=== PATIENT | female | born 1945 | race Caucasian/White ===

== ENCOUNTER 2020-06-23 07:18 | Outpatient (REF) | payer MEDICARE, SELFPAY ==
[2020-06-23 11:51] LABS: Alanine Aminotransferase 12 U/L (0-31); Anion Gap 13 (12-20); Aspartate Amino Transferase 15 U/L (5-31); Blood Urea Nitrogen 14 mg/dL (9-16); Calcium 9.3 mg/dL (8.4-10.2); Carbon Dioxide 29 mmol/L (22-29); Chloride 104 mmol/L (96-108); Cholesterol 196 mg/dL; Estimated Glomerular Filt Rate > 60; Glucose Fasting 85 mg/dL (60-99); HDL Cholesterol 51 mg/dL; LDL Cholesterol Calculated 127 mg/dl; Potassium 4.3 mmol/L (3.3-5.1); Sodium 142 mmol/L (135-145); Triglycerides 92 mg/dL
[2020-06-23 12:12] LABS: Vitamin D 25-OH Total 91.9 ng/mL (>30)
== END 2020-06-23 07:19 | disposition home or self-care (01) ==
LOC: HO.HMGCLDS 07:18
PROVIDERS: PCP Internal Medicine; Visit Provider Internal Medicine
DX: E55.9 Vitamin D deficiency, unspecified (principal); E78.5 Hyperlipidemia, unspecified; I10 Essential (primary) hypertension; Z78.0 Asymptomatic menopausal state
CPT/HCPCS: 36415; 80048; 80061; 82306; 84450; 84460

== ENCOUNTER 2020-09-03 11:11 | Emergency (ER) | payer MEDICARE, SELFPAY ==
--- NOTE | ~2020-09-03 | CT_ITS ---
EXAMINATION: CT ABDOMEN AND PELVIS WITH CONTRAST CLINICAL INFORMATION: Left upper quadrant pain, diarrhea COMPARISON: 11/09/2013 TECHNIQUE: Multidetector volumetric images were obtained from the superior aspect of the liver through the pubic symphysis following administration 85 mL of Omnipaque 350 intravenous contrast. Sagittal and coronal reformatted images were obtained on the technologist's workstation. Oral contrast: None This CT examination was performed using dose optimization techniques as appropriate, variously including the following: *Automated exposure control *Adjustment of mA and/or kV according to patient size (this includes techniques or standardized protocols for targeted exams where dose is matched to indication/reason for exam; i.e. extremities or head) *Use of iterative reconstruction technique DLP: 372 mGy-cm FINDINGS: LUNG BASES: The visualized lung bases are unremarkable. LIVER, GALLBLADDER, AND BILIARY TREE: The liver is normal in size, shape, and attenuation. No focal hepatic lesion or biliary ductal dilatation is present. The gallbladder is unremarkable with no evidence of radiopaque gallstones, gallbladder wall thickening, or obvious pericholecystic inflammatory changes. PANCREAS: Unremarkable. SPLEEN: Unremarkable. ADRENAL GLANDS: Unremarkable. KIDNEYS AND URETERS: The kidneys are normal in size, shape, and attenuation. No hydronephrosis, hydroureter, or calculi seen. No perinephric stranding. There is a simple fluid density left renal cyst measuring 3.6 cm which is increased in size. This does not require additional follow-up. BLADDER: Unremarkable. GASTROINTESTINAL TRACT: Sigmoid diverticulosis. No focal inflammatory process or obstruction. Normal appendix. ABDOMINAL WALL: No significant hernia is appreciated. LYMPH NODES: Normal. VASCULAR: Unremarkable. PELVIC VISCERA: Unremarkable. OSSEOUS STRUCTURES: Severe degenerative disc disease at L4-L5. CT/CT abdomen pelvis w con IMPRESSION: No focal inflammatory process or obstruction. Normal appendix. Sigmoid diverticulosis.
[2020-09-03 11:15] VITALS: BP 133/81; PULSE 89; RESP 16; TEMP 36.6; O2SAT 98; BMI 23.8
--- NOTE | 2020-09-03 14:00 | ECG_ITS ---
Test Reason : ADOMINAL PAIN Blood Pressure : / mmHG Vent. Rate : 071 BPM Atrial Rate : 071 BPM P-R Int : 156 ms QRS Dur : 086 ms QT Int : 410 ms P-R-T Axes : 059 060 070 degrees QTc Int : 445 ms Normal sinus rhythm Normal ECG When compared with ECG of 15-JAN-2010 15:46, No significant change was found Referred By: Spencer Bhatt Electronically Signed By:Fermin Beverly
--- NOTE | 2020-09-03 14:01 | ED_ITS ---
HPI - General Adult General Chief complaint: Abdominal Pain Stated complaint: FLANK PAIN Time Seen by Provider: 09/03/20 13:54 Source: patient and family Limitations: no limitations History of Present Illness HPI narrative: This is a 74-year-old female who was awakened in the middle the night by pain in her left upper quadrant, underneath her rib. The patient took 2 Advil a a back to sleep. She later woke up again with similar pain. She did have 3 episodes of diarrhea this morning, denies any blood in the stool. She denies any fever. She did have a recent episode of nausea in the waiting room, denies vomiting. She denies any chest pain or shortness of breath. She denies any back pain or urinary symptoms. She said she was told years ago that she had stone in the kidney but it has never bothered her. She describes the pain as more of a discomfort, and notes that it is worse lying down, improved standing up Related Data Previous Rx's Medication Instructions Recorded cholecalciferol (vitamin D3) 1,250 50,000 unit PO QWEEK #12 cap 02/12/20 mcg (50,000 unit) capsule atorvastatin 10 mg tablet 10 mg PO DAILY #90 tab 06/15/20 docusate sodium 100 mg capsule 100 mg PO BEDTIME #30 cap 09/07/20 linaclotide 72 mcg capsule 72 mcg PO DAILY #30 cap 09/22/20 (Linzess) Allergies Allergy/AdvReac Type Severity Reaction Status Date / Time Penicillins [PENICILLINS] Allergy Intermediate HIVES Verified 09/22/20 12:00 influenza virus vaccine, Allergy Unknown PT Verified 09/22/20 12:00 specific DEVELOPED [FLU VACCINE] SOB AND LOCAL SWELLING THIS YR Review of Systems Review of Systems: Yes all other systems are reviewed and are negative Constitutional: Constitutional: Reports as per HPI and Denies fever(s) Eyes: Eyes: Reports as per HPI and Reports no additional eye complaints ENT: Reports system reviewed and no additional complaints, except as documented, Reports as per HPI, Denies nasal congestion, Denies nasal discharge and Denies sore throat Cardiovascular: Cardiovascular: Reports as per HPI, Denies chest pain and Denies dyspnea Respiratory: Respiratory: Reports as per HPI, Denies cough and Denies dyspnea Gastrointestinal: Gastrointestinal: Reports as per HPI, Reports abdominal pain, Reports diarrhea, Reports nausea and Denies vomiting Genitourinary: Genitourinary: Reports as per HPI, Denies hematuria, Denies urinary frequency and Denies dysuria Musculoskeletal: Musculoskeletal: Reports no additional musculoskeletal complaints and Denies numbness Integumentary/Breasts: Skin/Breast: Reports as per HPI and Denies rash Neurologic: Reports as per HPI, Denies focal weakness, Denies numbness and Denies Sensory deficit (Neuro) Psychiatric: Psychiatric: Reports no additional psychiatric complaints and Reports as per HPI Endocrine: Endocrine: Reports no additional endocrine complaints and Reports as per HPI Hematologic/Lymphatic: Hematologic/Lymphatic: Reports no additional hematologic/lymphatic complaints, Reports as per HPI and Reports other (No peripheral edema) [facility] Past Medical History Medical History Hearing loss History of nephrolithiasis Lumbar disc herniation Osteopenia of multiple sites Smoker unmotivated to quit Vitamin D deficiency Surgical History Hx of colonoscopy Family History Family History Father Cancer Mother Diabetes mellitus Sister Brain cancer Social History Social History Alcohol intake: former Physical Exam Vital Signs: Vital Signs: Last Vital Signs Temp 98.0 F 09/03/20 14:40 Pulse 74 09/03/20 14:40 Resp 16 09/03/20 14:40 BP 169/93 H 09/03/20 14:40 Pulse Ox 98 09/03/20 11:15 Body Mass Index 23.8 Const: Other: Patient sitting up on the edge of [facility], appears moderately uncomfortable General: cooperative, no acute distress and alert Orientation/consciousness: patient oriented x3 HENMT: Head: Yes normal to inspection Eyes: General: appearance normal, both eyes and all related structures Eyelids: Yes eyelids normal Conjunctivae: conjunctivae normal Pupils: Equal, round and reactive pupils present Neck: Neck: Yes normal visual inspection and Yes supple Chest: Chest palpation & inspection: normal inspection of the chest Resp: Effort & Inspection: normal respiratory effort Auscultation: clear to auscultation bilaterally Cardio: Rate: regular rate Rhythm: regular rhythm Heart sounds: S1 normal heart sound present, S2 normal heart sound present, no gallops, no murmu rs and no rubs GI: Other: Tender left epigastric, mild, no lower quadrant tenderness Palpation (GI): Soft to palpation, nontender and Other GI palpation findings present (Non-distended) Auscultation: normal bowel sounds : General: Yes no CVA tenderness Back/Spine/Pelvis: Back: no CVA tenderness Skin: General skin exam: no rashes or lesions noted Neuro: General: patient oriented x3, no focal motor deficits and CN's II-XI intact bilaterally Cranial nerves: Yes Equal, round and reactive pupils present Cognition (Neuro): normal cognition Motor exam (neuro): 5/5 motor strength present throughout Sensory Exam: No Sensory deficit (Neuro) Extrem: General: Yes normal to inspection and Yes no pedal edema Psych: Appearance: grossly normal Affect: normal affect Medical Decision Making MDM Narrative Medical decision making narrative: Patient with right-sided abdominal pain/flank pain. Patient has also had associated diarrhea. CT that and pelvis showed no acute pathology. Urinalysis did show rbc's as well as 5-10 wbc's per high-power field. Urine culture was sent and is pending. There also were numerous epithel ial cells suggesting contamination. Lab Data Lab results reviewed: Yes I reviewed the patient's lab results. Result diagrams: 09/03/20 14:07 09/03/20 14:07 Labs: Lab Results 09/03/20 09/03/20 09/03/20 Range/Units 14:07 14:07 14:07 WBC 9.4 (4.8-10.8) X10*3/uL RBC 4.78 (4.20-5.50) X10*6/uL Hgb 14.8 (12.0-16.0) g/dl Hct 43.9 (37-47) % MCV 91.8 (80-98) fL MCH 31.0 (27.0-33.0) pg MCHC 33.7 (31.0-35.0) g/dl RDW 13.2 (11.0-16.0) % Plt Count 254 (160-400) X10*3/uL MPV 10.4 (9.4-12.3) fL Immature Gran % (Auto) 0.3 (0.0-0.4) % Neut % (Auto) 66.9 (45-73) % Lymph % (Auto) 24.2 (20-40) % Mills % (Auto) 6.9 (2-11) % Eos % (Auto) 1.1 (0-4) % Baso % (Auto) 0.6 (0-2) % Lymph # (Auto) 2.3 (1.2-4.9) X10*3/uL Mills # (Auto) 0.7 (0.1-1.2) X10*3/uL Eos # (Auto) 0.1 (0.0-0.4) X10*3/uL Baso # (Auto) 0.1 (0.0-0.2) X10*3/uL Abs Immat Gran (auto) 0.03 (0.00-0.03) X10*3/uL Absolute Neuts (auto) 6.3 (2.0-8.3) X10*3/uL Absolute Nucleated RBC 0.000 (0.0-0.012) X10*3/uL Nucleated RBC % (auto) 0.0 (0.0-0.2) /100WBC Sodium 141 (135-145) mmol/L Potassium 4.5 (3.3-5.1) mmol/L Chloride 104 (96-108) mmol/L Carbon Dioxide 27 (22-29) mmol/L Anion Gap 15 (12-20) BUN 10 (9-16) mg/dL Creatinine 0.68 (0.5-1.4) mg/dL Estim Creat Clear Calc 54.7 Estimated GFR > 60 Random Glucose 91 (60-115) mg/dL Calcium 10.0 D (8.4-10.2) mg/dL Total Bilirubin 0.7 (0.0-1.0) mg/dL AST 17 (5-31) U/L ALT 14 (0-31) U/L Alkaline Phosphatase 81 (39-117) U/L Troponin I High Sens < 3.5 (<3.5-17.0) ng/L Total Protein 7.1 (6.5-8.0) g/dL Albumin 4.3 (3.5-5.0) g/dL Lipase (8-78) U/L Urine Color Urine Appearance Urine pH (5.0-8.0) Ur Specific [place] (1.005-1.025) Urine Protein (NEG-TRACE) MG/DL Urine Glucose (UA) (NEG) MG/DL Urine Ketones (NEG) MG/DL Urine Blood (NEG) Urine Nitrite (NEG) Ur Leukocyte Esterase (NEG) Urine RBC (0) /HPF Urine WBC (0-4) /HPF Ur Squamous Epith Cells /LPF Urine Bacteria /LPF 09/03/20 09/03/20 Range/Units 14:07 15:18 WBC (4.8-10.8) X10*3/uL RBC (4.20-5.50) X10*6/uL Hgb (12.0-16.0) g/dl Hct (37-47) % MCV (80-98) fL MCH (27.0-33.0) pg MCHC (31.0-35.0) g/dl RDW (11.0-16.0) % Plt Count (160-400) X10*3/uL MPV (9.4-12.3) fL Immature Gran % (Auto) (0.0-0.4) % Neut % (Auto) (45-73) % Lymph % (Auto) (20-40) % Mills % (Auto) (2-11) % Eos % (Auto) (0-4) % Baso % (Auto) (0-2) % Lymph # (Auto) (1.2-4.9) X10*3/uL Mills # (Auto) (0.1-1.2) X10*3/uL Eos # (Auto) (0.0-0.4) X10*3/uL Baso # (Auto) (0.0-0.2) X10*3/uL Abs Immat Gran (auto) (0.00-0.03) X10*3/uL Absolute Neuts (auto) (2.0-8.3) X10*3/uL Absolute Nucleated RBC (0.0-0.012) X10*3/uL Nucleated RBC % (auto) (0.0-0.2) /100WBC Sodium (135-145) mmol/L Potassium (3.3-5.1) mmol/L Chloride (96-108) mmol/L Carbon Dioxide (22-29) mmol/L Anion Gap (12-20) BUN (9-16) mg/dL Creatinine (0.5-1.4) mg/dL Estim Creat Clear Calc Estimated GFR Random Glucose (60-115) mg/dL Calcium (8.4-10.2) mg/dL Total Bilirubin (0.0-1.0) mg/dL AST (5-31) U/L ALT (0-31) U/L Alkaline Phosphatase (39-117) U/L Troponin I High Sens (<3.5-17.0) ng/L Total Protein (6.5-8.0) g/dL Albumin (3.5-5.0) g/dL Lipase 13 (8-78) U/L Urine Color YELLOW Urine Appearance CLEAR Urine pH 6.0 (5.0-8.0) Ur Specific [place] 1.010 (1.005-1.025) Urine Protein NEG (NEG-TRACE) MG/DL Urine Glucose (UA) NEG (NEG) MG/DL Urine Ketones 5 (NEG) MG/DL Urine Blood 2+ H (NEG) Urine Nitrite NEG (NEG) Ur Leukocyte Esterase 1+ H (NEG) Urine RBC 10-14 H (0) /HPF Urine WBC 5-9 H (0-4) /HPF Ur Squamous Epith Cells 2+ /LPF Urine Bacteria 2+ /LPF ECG Data Attestation: I personally reviewed and interpreted this ECG as follows: Prior ECG tracings: not available for review Interpretation: Sinus rhythm with a rate of 71. No ST elevation or depression. Normal QRS axis, no ectopy. Normal EKG. Discharge Plan Discharge Clinical Impression: Abdominal pain, Diarrhea Patient Disposition: Home, Self-Care Instructions: Abdominal Pain (ED) Additional Instructions: Drink plenty of fluids. Eat a low-fat, bland diet for the time being. Follow up with primary care physician. Return for any new or worsened symptoms such as increased pain, fever, vomiting and inability to hold down fluids. Prescriptions: No Action cholecalciferol (vitamin D3) 1,250 mcg (50,000 unit) capsule 50,000 unit PO QWEEK Qty: 12 RF: 0 atorvastatin 10 mg tablet 10 mg PO DAILY Qty: 90 RF: 3 docusate sodium 100 mg capsule 100 mg PO BEDTIME Qty: 30 RF: 3 Linzess 72 mcg capsule 72 mcg PO DAILY Qty: 30 RF: 2 Interventions: ED Discharge Assessment Last Done: 09/03/20 16:58 Discharge Date/Time: 09/03/20 16:58
[2020-09-03 14:11] LABS: MANUAL DIFF FLAG NO
[2020-09-03] MEDS: Morphine Sulfate 2 MG/ML CARTRIDGE IVPUSH ×2 (14:11→15:22)
[2020-09-03] MEDS: ondansetron HCL 4 MG/2 ML VIAL IVPUSH (14:11)
[2020-09-03 14:15] LABS: Basophils Absolute Auto 0.1 X10*3/uL (0.0-0.2); Basophils Percent Auto 0.6 % (0-2); Eosinophils Absolute Auto 0.1 X10*3/uL (0.0-0.4); Eosinophils Percent Auto 1.1 % (0-4); Hematocrit 43.9 % (37-47); Hemoglobin 14.8 g/dl (12.0-16.0); Imm Gran Abs Auto 0.03 X10*3/uL (0.00-0.03); Imm Gran Pct Auto 0.3 % (0.0-0.4); Lymphocytes Absolute Auto 2.3 X10*3/uL (1.2-4.9); Lymphocytes Percent Auto 24.2 % (20-40); Mean Corpuscular HGB Conc 33.7 g/dl (31.0-35.0); Mean Corpuscular Volume 91.8 fL (80-98); Mean Platelet Volume 10.4 fL (9.4-12.3); Monocytes Absolute Auto 0.7 X10*3/uL (0.1-1.2); Monocytes Percent Auto 6.9 % (2-11); Neutrophils Absolute Auto 6.3 X10*3/uL (2.0-8.3); Neutrophils Percent Auto 66.9 % (45-73); Platelet Count 254 X10*3/uL (160-400); Red Blood Count 4.78 X10*6/uL (4.20-5.50); Red Cell Distribution Width 13.2 % (11.0-16.0); White Blood Count 9.4 X10*3/uL (4.8-10.8)
[2020-09-03 14:34] LABS: Lipase 13 U/L (8-78)
[2020-09-03 14:38] LABS: Troponin-I High Sensitivity < 3.5 ng/L (<3.5-17.0)
[2020-09-03 14:40] VITALS: BP 169/93; PULSE 74; RESP 16; TEMP 36.7
[2020-09-03 14:40] LABS: Alanine Aminotransferase 14 U/L (0-31); Albumin Level 4.3 g/dL (3.5-5.0); Alkaline Phosphatase 81 U/L (39-117); Anion Gap 15 (12-20); Aspartate Amino Transferase 17 U/L (5-31); Bilirubin Total 0.7 mg/dL (0.0-1.0); Blood Urea Nitrogen 10 mg/dL (9-16); Carbon Dioxide 27 mmol/L (22-29); Chloride 104 mmol/L (96-108); Creatinine Clr Calc Pharmacy 54.7; Estimated Glomerular Filt Rate > 60; Glucose Random 91 mg/dL (60-115); Potassium 4.5 mmol/L (3.3-5.1); Sodium 141 mmol/L (135-145); Total Protein 7.1 g/dL (6.5-8.0)
[2020-09-03 15:25] LABS: Glucose Urine UA NEG (NEG); Leukocyte Esterase Urine 1+ (NEG); Nitrite Urine NEG (NEG); UACC Culture Trigger YES; Urine Blood 2+ (NEG); Urine Ketones 5 MG/DL (NEG); Urine Protein NEG (NEG-TRACE)
[2020-09-03 15:28] LABS: Appearance Urine CLEAR; Color Urine YELLOW
[2020-09-03 15:35] LABS: Bacteria Urine 2+ /LPF; Squamous Epithelial Cell Urine 2+ /LPF
[2020-09-03] MEDS: iohexoL 350 MG/ML 100 ML INFUS..BTL IV (15:42)
[2020-09-03] MEDS: oxyCODONE HCl Immed Release 5 MG TABLET PO (16:47)
== END 2020-09-03 16:58 | disposition home or self-care (01) ==
PROVIDERS: Emergency Provider Emergency Medicine; PCP Internal Medicine
DX: R10.12 Left upper quadrant pain (principal); R19.7 Diarrhea, unspecified
CPT/HCPCS: 36415; 74177; 80053; 81001; 81003; 83690; 84484; 85025; 87086; 93005; 96374; 96375; 99284; J2270; J2405; Q9967

== ENCOUNTER 2020-09-05 08:33 | Emergency (ER) | payer MEDICARE, SELFPAY ==
[2020-09-05 08:59] VITALS: BP 118/74; PULSE 83; RESP 18; TEMP 35.9; O2SAT 95; BMI 23.8
--- NOTE | 2020-09-05 09:38 | ED_ITS ---
HPI - Abdominal Pain General Chief Complaint: Abdominal Pain Stated Complaint: abd pain Time Seen by Provider: 09/05/20 09:14 Source: patient and family Mode of arrival: ambulatory Limitations: no limitations History of Present Illness HPI narrative: 74 y/o female with history of HLD, hard of hearing, kidney stones who presents to the ED for evaluation of left sided abdominal pain for the last 3 days. She was seen here 2 days ago for the same. CT scan with contrast showed sigmoid divertoculosis and lab workup was normal. Her UA was positive but urine culture ended up being negative. She was sent home with Bentyl and Percocet. She reports taking the Percocet around the clock with good effect, however after ab out 3 hours her pain returns and she needs to take it again. She reports the pain in on her left middle abdomen and wraps around to her left flank. She vomited once yesterday after eating cereal. No diarrhea, no fevers, no urinary symptoms. MD elicited complaint: abdominal pain and flank pain Pertinent past history: none Onset (ago): day(s) (3) Pain Consistency: constant Location: LLQ Severity: moderate Quality: cramping and stabbing Radiation: L flank Exacerbating factors: nothing Relieving factors: medication Associated symptoms: nausea and vomiting Treatments prior to arrival: prescription analgesics Related Data Previous Rx's Medication Instructions Recorded cholecalciferol (vitamin D3) 1,250 50,000 unit PO QWEEK #12 cap 02/12/20 mcg (50,000 unit) capsule atorvastatin 10 mg tablet 10 mg PO DAILY #90 tab 06/15/20 dicyclomine 20 mg PO TID #12 tab 09/03/20 ondansetron HCl [Zofran] 4 mg PO Q6H PRN #12 tab 09/03/20 oxycodone-acetaminophen [Percocet] 1 tab PO Q4H PRN #14 tab 09/03/20 hydrocodone-acetaminophen 1 tab PO Q8H PRN #7 tab 09/05/20 ibuprofen 600 mg PO Q8H PRN #10 tab 09/05/20 levofloxacin 500 mg PO DAILY #7 tab 09/05/20 Allergies Allergy/AdvReac Type Severity Reaction Status Date / Time Penicillins [PENICILLINS] Allergy Intermediate HIVES Verified 09/05/20 08:58 influenza virus vaccine, Allergy Unknown PT Verified 09/05/20 08:58 specific DEVELOPED [FLU VACCINE] SOB AND LOCAL SWELLING THIS YR Review of Systems Review of Systems Constitutional: No Fever, No Chills ENT/Mouth: No sore throat, No Rhinorrhea, No Swallowing Difficulty Eyes: No Eye Pain, No Swelling, No Redness Cardiovascular: No Chest Pain, No SOB, No Orthopnea, No Edema Respiratory: No Cough, No Sputum, No Wheezing, No dyspnea Gastrointestinal: + Nausea, + Vomiting, No Diarrhea, + abdominal Pain, No Hematochezia, No Melena Genitourinary: No Dysuria, No Urinary Frequency, No Hematuria Musculoskeletal: No joint pain, No Myalgias Skin: No Skin Lesions, No rash Neuro: No Weakness, No Numbness, No Dizziness, No Headache Psych: No Anxiety/Panic, No Depression Heme/Lymph: No Bruising, No Lymphadenopathy Endocrine: No Polyuria, No Polydipsia Physical Exam Vital Signs: Vital Signs: Last Vital Signs Temp 96.6 F L 09/05/20 08:59 Pulse 83 09/05/20 08:59 Resp 18 09/05/20 08:59 BP 118/74 09/05/20 08:59 Pulse Ox 95 09/05/20 08:59 Body Mass Index 23.8 Appearance: Alert. Oriented X3. No acute distress. Eyes: Pupils equal, round and reactive to light. ENT: Pharynx normal. Neck: Normal inspection. Neck supple. CVS: Normal heart rate and rhythm. Pulses normal. Respiratory: No respiratory distress. Breath sounds normal. Abdomen: Soft with mild left sided abdominal tenderness, some left sided flank tenderness, no CVA tenderness. +BS x4 Skin: Skin warm and dry. Normal skin color. Normal skin turgor. No rashes. Extremities: No lower extremity edema. Neuro: Oriented X 3. No motor deficit. No sensory deficit. Course Course Course Narrative: 74 y/o female presenting with ongoing left sided abdominal/flank pain since Friday. Seen here for the same with essentially unremarkable workup. She reports episode of vomiting last night. VS are stable on arrival without fevers. Her pain at this time is minimal after taking oxycodone a couple hours ago at home. She is nontoxic with soft abdomen. Some mild tenderness on exam but is not consistent with obstruction or kidney stone. Will plan to repeat labs and UA. Her UA a few days ago was positive. Her pain could be due to UTI, possible pyelo although she does not appear to be septic. Reevaluation(s) Reevaluation #1: Labs are unremarkable. Given Toradol for some pain with good effect. Her UA is weakly positive for infection. We discussed possibly repeating CT scan however will plan to hold off for now. Will plan to treat for possible UTI and have her f/u with Urology for ongoing hematuria and GI for this abdominal pain. She has an appointment with her PCP on 09/25. She would like to be discharged home with plan for outpatient follow up and coming back to the ER if symptoms worsen. Comfortable with d/c home. MDM - Abdominal Pain Lab Data Result diagrams: 09/05/20 09:46 09/05/20 09:46 Labs: Lab Results 09/05/20 09/05/20 09/05/20 Range/Units 09:46 09:46 11:23 WBC 8.7 (4.8-10.8) X10*3/uL RBC 4.70 (4.20-5.50) X10*6/uL Hgb 14.8 (12.0-16.0) g/dl Hct 43.1 (37-47) % MCV 91.7 (80-98) fL MCH 31.5 (27.0-33.0) pg MCHC 34.3 (31.0-35.0) g/dl RDW 12.9 (11.0-16.0) % Plt Count 224 (160-400) X10*3/uL MPV 10.4 (9.4-12.3) fL Immature Gran % (Auto) 0.2 (0.0-0.4) % Neut % (Auto) 72.6 (45-73) % Lymph % (Auto) 17.4 L (20-40) % [place] % (Auto) 8.0 (2-11) % Eos % (Auto) 1.0 (0-4) % Baso % (Auto) 0.8 (0-2) % Lymph # (Auto) 1.5 (1.2-4.9) X10*3/uL [place] # (Auto) 0.7 (0.1-1.2) X10*3/uL Eos # (Auto) 0.1 (0.0-0.4) X10*3/uL Baso # (Auto) 0.1 (0.0-0.2) X10*3/uL Abs Immat Gran (auto) 0.02 (0.00-0.03) X10*3/uL Absolute Neuts (auto) 6.3 (2.0-8.3) X10*3/uL Absolute Nucleated RBC 0.000 (0.0-0.012) X10*3/uL Nucleated RBC % (auto) 0.0 (0.0-0.2) /100WBC Sodium 139 (135-145) mmol/L Potassium 3.9 (3.3-5.1) mmol/L Chloride 102 (96-108) mmol/L Carbon Dioxide 28 (22-29) mmol/L Anion Gap 13 (12-20) BUN 9 (9-16) mg/dL Creatinine 0.74 (0.5-1.4) mg/dL Estim Creat Clear Calc 50.3 Estimated GFR > 60 Random Glucose 100 (60-115) mg/dL Calcium 9.4 (8.4-10.2) mg/dL Magnesium 1.9 (1.6-2.6) mg/dL Total Bilirubin 0.7 (0.0-1.0) mg/dL Direct Bilirubin 0.3 (0.0-0.5) mg/dL AST 15 (5-31) U/L ALT 14 (0-31) U/L Alkaline Phosphatase 74 (39-117) U/L Total Protein 6.5 (6.5-8.0) g/dL Albumin 4.0 (3.5-5.0) g/dL Urine Color STRAW Urine Appearance CLEAR Urine pH 7.0 (5.0-8.0) Ur Specific [place] <= 1.005 (1.005-1.025) Urine Protein NEG (NEG-TRACE) MG/DL Urine Glucose (UA) NEG (NEG) MG/DL Urine Ketones NEG (NEG) MG/DL Urine Blood 2+ H (NEG) Urine Nitrite NEG (NEG) Ur Leukocyte Esterase TRACE H (NEG) Urine RBC 0-2 (0) /HPF Urine WBC 0-2 (0-4) /HPF Ur Squamous Epith Cells TRACE /LPF Urine Bacteria NONE /LPF Discharge Plan Discharge Clinical Impression: Acute UTI Abdominal pain Qualifiers: Abdominal location: left upper quadrant Qualified Code(s): R10.12 - Left upper quadrant pain Patient Disposition: Home, Self-Care Instructions: Abdominal Pain (ED), Urinary Tract Infection in Older Adults (ED) Additional Instructions: Your lab workup today was normal. Your urine test showed possible infection. Recommend starting the prescribed antibiotic today - take once per day for 1 week. Follow up with your doctor as scheduled. Take the prescribed medications as needed for pain. Recommend a bland diet while you are not feeling well. Rest and drink plenty of fluids. If you develop new or worsening symptoms call 911 or come back to the ER for further evaluation. Prescriptions: New hydrocodone-acetaminophen 5-325 mg tablet 1 tab PO Q8H PRN (Reason: pain) Qty: 7 RF: 0 ibuprofen 600 mg tablet 600 mg PO Q8H PRN (Reason: pain) Qty: 10 RF: 0 levofloxacin 500 mg tablet 500 mg PO DAILY Qty: 7 RF: 0 No Action cholecalciferol (vitamin D3) 1,250 mcg (50,000 unit) capsule 50,000 unit PO QWEEK Qty: 12 RF: 0 oxycodone-acetaminophen [Percocet] 5-325 mg tablet 1 tab PO Q4H PRN (Reason: pain) Qty: 14 RF: 0 dicyclomine 20 mg tablet 20 mg PO TID Qty: 12 RF: 0 ondansetron HCl [Zofran] 4 mg tablet 4 mg PO Q6H PRN (Reason: nausea and vomiting) Qty: 12 RF: 0 atorvastatin 10 mg tablet 10 mg PO DAILY Qty: 90 RF: 3 Referrals: Gloria Hernandez MD [Physician] - 1 week (left sided abdominal pain) Quang Herrera III, MD [Physician] - 2 days (hematuria) [facility] Past Medical History Medical History (Updated 09/05/20 @ 12:08 by OMKAR Jeronimo) Hearing loss Lumbar disc herniation Osteopenia of multiple sites Smoker unmotivated to quit Vitamin D deficiency Surgical History (Updated 06/15/20 @ 23:57 by Lizzie Lantigua MD) Hx of colonoscopy Family History Family History (Updated 06/15/20 @ 23:59 by Lizzie Lantigua MD) Father Cancer Mother Diabetes mellitus Sister Brain cancer Social History Social History Alcohol intake: former Advance Directives: Yes Advance Directives Information Provided: No Advance Directives on File: No
--- NOTE | 2020-09-05 09:49 | PC.NURSE ---
IV inserted and blood obtained and sent to lab
[2020-09-05 09:51] LABS: MANUAL DIFF FLAG NO
[2020-09-05 09:57] LABS: Basophils Absolute Auto 0.1 X10*3/uL (0.0-0.2); Basophils Percent Auto 0.8 % (0-2); Eosinophils Absolute Auto 0.1 X10*3/uL (0.0-0.4); Hematocrit 43.1 % (37-47); Hemoglobin 14.8 g/dl (12.0-16.0); Imm Gran Abs Auto 0.02 X10*3/uL (0.00-0.03); Imm Gran Pct Auto 0.2 % (0.0-0.4); Lymphocytes Absolute Auto 1.5 X10*3/uL (1.2-4.9); Lymphocytes Percent Auto 17.4 % (20-40); Mean Corpuscular HGB Conc 34.3 g/dl (31.0-35.0); Mean Corpuscular Hemoglobin 31.5 pg (27.0-33.0); Mean Corpuscular Volume 91.7 fL (80-98); Mean Platelet Volume 10.4 fL (9.4-12.3); Monocytes Absolute Auto 0.7 X10*3/uL (0.1-1.2); Neutrophils Absolute Auto 6.3 X10*3/uL (2.0-8.3); Neutrophils Percent Auto 72.6 % (45-73); Platelet Count 224 X10*3/uL (160-400); Red Cell Distribution Width 12.9 % (11.0-16.0); White Blood Count 8.7 X10*3/uL (4.8-10.8)
[2020-09-05 10:16] LABS: Alanine Aminotransferase 14 U/L (0-31); Alkaline Phosphatase 74 U/L (39-117); Anion Gap 13 (12-20); Aspartate Amino Transferase 15 U/L (5-31); Bilirubin Direct 0.3 mg/dL (0.0-0.5); Bilirubin Total 0.7 mg/dL (0.0-1.0); Blood Urea Nitrogen 9 mg/dL (9-16); Calcium 9.4 mg/dL (8.4-10.2); Carbon Dioxide 28 mmol/L (22-29); Chloride 102 mmol/L (96-108); Creatinine Clr Calc Pharmacy 50.3; Estimated Glomerular Filt Rate > 60; Glucose Random 100 mg/dL (60-115); Magnesium 1.9 mg/dL (1.6-2.6); Potassium 3.9 mmol/L (3.3-5.1); Sodium 139 mmol/L (135-145); Total Protein 6.5 g/dL (6.5-8.0)
[2020-09-05 11:37] LABS: Glucose Urine UA NEG (NEG); Leukocyte Esterase Urine TRACE (NEG); Nitrite Urine NEG (NEG); Specific Gravity - Urine <= 1.005 (1.005-1.025); UACC Culture Trigger YES; Urine Blood 2+ (NEG); Urine Ketones NEG (NEG); Urine Protein NEG (NEG-TRACE)
[2020-09-05] MEDS: Ketorolac Tromethamine 30 MG/ML VIAL IVPUSH (11:43)
[2020-09-05 11:48] LABS: Appearance Urine CLEAR; Color Urine STRAW
[2020-09-05 11:52] LABS: RBC Urine 0-2 /HPF (0); Squamous Epithelial Cell Urine TRACE /LPF; WBC Urine 0-2 /HPF (0-4)
== END 2020-09-05 12:33 | disposition home or self-care (01) ==
PROVIDERS: Physician Assistant; Emergency Provider Student in an Organized Health Care Education/Training Program; PCP Internal Medicine
DX: N39.0 Urinary tract infection, site not specified (principal); R10.12 Left upper quadrant pain; K57.30 Diverticulosis of large intestine without perforation or abscess without bleeding; Z87.442 Personal history of urinary calculi
CPT/HCPCS: 36415; 80048; 80076; 81001; 81003; 83735; 85025; 96374; 99284; J1885

== ENCOUNTER 2020-09-07 14:14 | Outpatient (REF) | payer MEDICARE, SELFPAY ==
[2020-09-07 16:11] LABS: C Reactive Protein 0.06 mg/dL (< or = 0.50)
[2020-09-07 16:35] LABS: TSH reflex Free T4 0.59 uIU/mL (0.32-4.0)
[2020-09-09 14:32] LABS: Transglutaminase Ab IgG 6 U/mL; Transglutaminase IgA 1 U/mL
== END 2020-09-07 14:15 | disposition home or self-care (01) ==
LOC: HO.LAB 14:14
PROVIDERS: PCP Internal Medicine; Referring Provider Internal Medicine; Visit Provider Nurse Practitioner Family
DX: R10.9 Unspecified abdominal pain (principal); K59.00 Constipation, unspecified
CPT/HCPCS: 36415; 83516; 84443; 86140; 99202

== ENCOUNTER → 2020-09-22 11:43 | Outpatient (BNVA) | payer MEDICARE, SELFPAY | PROVIDERS: PCP Internal Medicine; Referring Provider Internal Medicine; Visit Provider Nurse Practitioner Family | DX: K59.00 Constipation, unspecified (principal); R10.9 Unspecified abdominal pain | CPT/HCPCS: 99212 ==

== ENCOUNTER → 2020-09-29 11:29 | Outpatient (BNVA) | payer MEDICARE, SELFPAY | PROVIDERS: PCP Internal Medicine; Referring Provider Internal Medicine; Visit Provider Nurse Practitioner Family | DX: K59.04 Chronic idiopathic constipation (principal); R10.12 Left upper quadrant pain | CPT/HCPCS: 99212 ==

== ENCOUNTER → 2020-10-10 11:22 | Outpatient (BNVA) | payer MEDICARE, SELFPAY | PROVIDERS: Visit Provider Nurse Practitioner Family | DX: K59.01 Slow transit constipation (principal); R10.12 Left upper quadrant pain | CPT/HCPCS: 99212 ==

== ENCOUNTER 2020-11-14 10:22 | Outpatient (REF) | payer MEDICARE, SELFPAY ==
[2020-11-14 12:38] LABS: Blood Urea Nitrogen 10 mg/dL (9-16); Estimated Glomerular Filt Rate > 60
== END 2020-11-14 10:23 | disposition home or self-care (01) ==
LOC: HO.LAB 10:22
PROVIDERS: PCP Internal Medicine; Referring Provider Internal Medicine; Visit Provider Nurse Practitioner Family
DX: Z01.818 Encounter for other preprocedural examination (principal); R10.11 Right upper quadrant pain; K59.04 Chronic idiopathic constipation
CPT/HCPCS: 36415; 82565; 84520; 99212

== ENCOUNTER 2020-11-23 10:17 | Outpatient (REF) | payer MEDICARE, SELFPAY ==
--- NOTE | ~2020-11-23 | CT_ITS ---
EXAMINATION: CT ABDOMEN AND PELVIS WITH CONTRAST CLINICAL INFORMATION: Abdominal pain COMPARISON: Previous CT of the abdomen and pelvis August 2013 and renal ultrasound most recent November 2017 TECHNIQUE: Multidetector volumetric images were obtained from the superior aspect of the liver through the pubic symphysis following administration 85 mL of Omnipaque 350 intravenous contrast. Sagittal and coronal reformatted images were obtained on the technologist's workstation. Oral contrast: Yes This CT examination was performed using dose optimization techniques as appropriate, variously including the following: *Automated exposure control *Adjustment of mA and/or kV according to patient size (this includes techniques or standardized protocols for targeted exams where dose is matched to indication/reason for exam; i.e. extremities or head) *Use of iterative reconstruction technique DLP: 288 mGy-cm FINDINGS: LUNG BASES: The visualized lung bases are unremarkable. LIVER, GALLBLADDER, AND BILIARY TREE: The liver is normal in size, shape, and attenuation. No focal hepatic lesion or biliary ductal dilatation is present. The gallbladder is unremarkable with no evidence of radiopaque gallstones, gallbladder wall thickening, or obvious pericholecystic inflammatory changes. PANCREAS: Unremarkable. SPLEEN: Unremarkable. ADRENAL GLANDS: Unremarkable. KIDNEYS AND URETERS: There is a 4 cm cyst in the left kidney. There is a small 5 mm low-attenuation lesion in the upper pole of the right kidney probably representing a cyst as well. No imaging follow-up needed. BLADDER: Unremarkable. GASTROINTESTINAL TRACT: There is severe diverticulosis of the sigmoid colon. There is also wall thickening of the sigmoid colon and it is difficult to exclude mild diverticulitis. No evidence of obstruction or perforation or abscess is seen. The small and large bowel is otherwise unremarkable. The appendix is is not seen. The stomach is unremarkable. ABDOMINAL WALL: No significant hernia is appreciated. LYMPH NODES: Normal. VASCULAR: Unremarkable. PELVIC VISCERA: Unremarkable. OSSEOUS STRUCTURES: There are degenerative changes of the spine. CT/CT abdomen pelvis w con IMPRESSION: Diverticular disease of the sigmoid colon. Left renal cyst.
[2020-11-23] MEDS: iohexoL 350 MG/ML 100 ML INFUS..BTL IV (13:12)
== END 2020-11-23 10:18 | disposition home or self-care (01) ==
LOC: HO.CT 10:17
PROVIDERS: PCP Internal Medicine; Visit Provider Nurse Practitioner Family
DX: R10.9 Unspecified abdominal pain (principal)
CPT/HCPCS: 74177; Q9967

== ENCOUNTER → 2020-12-05 11:21 | Outpatient (BNVA) | payer MEDICARE, SELFPAY | PROVIDERS: PCP Internal Medicine; Referring Provider Internal Medicine; Visit Provider Nurse Practitioner Family | DX: Z12.11 Encounter for screening for malignant neoplasm of colon (principal); K57.90 Diverticulosis of intestine, part unspecified, without perforation or abscess without bleeding; K59.04 Chronic idiopathic constipation; F17.210 Nicotine dependence, cigarettes, uncomplicated | CPT/HCPCS: 99212 ==

== ENCOUNTER 2020-12-19 09:14 | Day surgery (SDC) | payer MEDICARE, SELFPAY ==
--- NOTE | 2020-12-18 08:54 | P.CONAN_ITS ---
Documented by User: Ana Finney NP 12/18/20 08:55 HPI - Anesthesia Eval Consult details Narrative: 75yo F for Colonoscopy PMFSH Active Problems Active Problems: All Active Problems (Updated 12/13/20 @ 13:50 by Vanna Conner, RENEE) Dyslipidemia (Acute) Smoker unmotivated to quit (Acute) Hearing loss (Acute) Vitamin D deficiency (Acute) Past Medical History Medical History Hearing loss History of nephrolithiasis Lumbar disc herniation Osteopenia of multiple sites Smoker Vitamin D deficiency Family History Family History Father Cancer Mother Diabetes mellitus Sister Brain cancer Surgical History Surgical History History of cataract extraction History of fusion of cervical spine History of lumbar discectomy Hx of colonoscopy Social History Social History Alcohol intake: former Patient Tobacco Use Status: Former Tobacco user Years Smoked: 50 Use of substances other than those prescribed or required for medical reasons: No Advance Directives: No Advance Directives Information Provided: Yes Recently lost weight without trying: No Meds Allergies Allergy/AdvReac Type Severity Reaction Status Date / Time Penicillins [PENICILLINS] Allergy Intermediate HIVES Verified 12/13/20 13:46 influenza virus vaccine, Allergy Unknown PT Verified 12/13/20 13:46 specific DEVELOPED [FLU VACCINE] SOB AND LOCAL SWELLING THIS YR metronidazole [From Flagyl] AdvReac severe Verified 12/13/20 13:46 diarrhea, Home Medications Medication Instructions Recorded Confirmed Last Taken Type sennosides 8.6 mg tablet (Celine-belkis) 0 mg PO 12/05/20 Unknown History Exam Exam Date and Time: December 18, 2020 0854 Narrative Narrative: EKG 08/2020 Vent. Rate : 071 BPM ? ? Atrial Rate : 071 BPM ?? P-R Int : 156 ms? QRS Dur : 086 ms ? ? QT Int : 410 ms ? ? ? P-R-T Axes : 059 060 070 degrees ?? QTc Int : 445 ms ? Normal sinus rhythm Normal ECG When compared with ECG of 15-JAN-2010 15:46, No significant change was found Assessment and Plan Assessment Anesthesia Assessment: Chart Reviewed Documented by User: Tyree Slade MD 12/19/20 10:56 [facility] Past Medical History Medical History Hearing loss History of nephrolithiasis Lumbar disc herniation Osteopenia of multiple sites Smoker Vitamin D deficiency Family History Family History Father Cancer Mother Diabetes mellitus Sister Brain cancer Family history of problems with anesthesia: No Surgical History Surgical History History of cataract extraction History of fusion of cervical spine History of lumbar discectomy Hx of colonoscopy History of Problems with Anesthesia: No Social History Social History Alcohol intake: former Patient Tobacco Use Status: Former Tobacco user Years Smoked: 50 Use of substances other than those prescribed or required for medical reasons: No Advance Directives: No Advance Directives Information Provided: Yes Recently lost weight without trying: No Meds Allergies Allergy/AdvReac Type Severity Reaction Status Date / Time Penicillins [PENICILLINS] Allergy Intermediate HIVES Verified 12/13/20 13:46 influenza virus vaccine, Allergy Unknown PT Verified 12/13/20 13:46 specific DEVELOPED [FLU VACCINE] SOB AND LOCAL SWELLING THIS YR metronidazole [From Flagyl] AdvReac severe Verified 12/13/20 13:46 diarrhea, Home Medications Medication Instructions Recorded Confirmed Last Taken Type sennosides 8.6 mg tablet (Celine-belkis) 0 mg PO 12/05/20 Unknown History Exam Airway Mallampati Class: III TM Dist: >3cm Neck ROM: Full Denture: Upper and Lower Assessment and Plan Assessment Anesthesia Assessment: Anesthesia Plan Discussed Final Anesthetic Review Family History of Problems with Anesthesia: No History of Problems with Anesthesia: No NPO: Yes ASA Class: II Final Preanesthetic Review: No Changes in Pt Med Stat, Meds/Allgs Chart Reviewed, Consent Obtained/Reviewed and Anes Risks/Benef Reviewed Patient Risk: Low Procedure Risk: Low Anesthetic Plan Anesthetic Plan: MAC: Disposition: Standard PACU
[2020-12-19 09:43] VITALS: BP 135/90; PULSE 96; RESP 16; TEMP 36.6; O2SAT 97; BMI 22.8
[2020-12-19] MEDS: Lactated Ringers 1,000 ML 100 ML IVCONT (09:48)
--- NOTE | 2020-12-19 09:50 | MHC.SHP ---
Pre-Procedural Eval Section A Date of Service: 12/19/20 The patient is an INPATIENT: No Changes since office visit: Yes Patient answered all questions; No Cold of Flu in the past 2 weeks, No New Medical Problems and No Changes in Medication The History & Physical has been completed within 30 days and I have reviewed it.: Yes Section B Chief Complaint: constipation Allergies: Allergies Allergy/AdvReac Type Severity Reaction Status Date / Time Penicillins [PENICILLINS] Allergy Intermediate HIVES Verified 12/13/20 13:46 influenza virus vaccine, Allergy Unknown PT Verified 12/13/20 13:46 specific DEVELOPED [FLU VACCINE] SOB AND LOCAL SWELLING THIS YR metronidazole [From Flagyl] AdvReac severe Verified 12/13/20 13:46 diarrhea, Plan I have reviewed the history and physical and performed a pertinent physical examination on my patient. No changes have occurred unless specified.
--- NOTE | 2020-12-19 09:51 | W.PM.OPN ---
Operative Note Operative Note Date of Service: 12/19/20 Narrative: Pre-op diagnosis:?Colon cancer screening, recent episode of diverticulitis Post-op diagnosis:?other (Colon polyps, diverticulosis, hemorrhoids) Procedure:? COLONOSCOPY TILL CECUM WITH SNARE POLYPECTOMY Consent: Indications for the procedure and potential complications of bleeding, perforation, reaction to medications and missed diagnosis were discussed with the patient and informed consent was obtained. Instrument: Olympus PCF H 190 L variable stiffness pediatric colonoscope Monitoring: Vital signs and clinical assessment, intermittent blood pressure monitoring, continuous EKG monitoring, Pulse oximetry and Carbon Dioxide monitoring were done throughout the procedure. Colon withdrawl time was 20 minutes. Procedure: The patient was placed in the left lateral decubitis position and pre-procedure medications were administered. After a digital rectal examination of the ano-rectum, the video colonoscope was inserted into the rectum and advanced through the colon to the cecum. The colonoscope was slowly withdrawn in a retrograde panoramic fashion and the colon mucosa was carefully examined including a retroflexed view of the rectum. Findings and interventions are described below. Procedure Difficulty: Without difficulty Findings: Terminal Ileum: Not evaluated Cecum:? Normal Ascending Colon:? Two 8-12 mm sessile polyps removed with a cold snare. Transverse Colon:? Normal Descending Colon:? Moderate diverticulosis Sigmoid Colon:? Three 8- 12 mm sessile polyps removed with a cold snare.? A few additional small diminutive polyps noted.? Severe diverticulosis with luminal narrowing. Rectum:? Normal Ano-rectum:? Small internal hemorrhoids Colon preparation:? Good after copious irrigation Impression and Post Procedure Diagnosis: Colonoscopy Findings: Five small to medium sized polyps removed Moderate diverticulosis seen in the left colon Small hemorrhoids on retroflexed exam. Plan: Await pathology results Patient has an appointment on 01/02/21 in the GI Clinic with ? Pilar Chávez FNP-HE. Repeat Colonoscopy interval based on path results - in 3-5 years if polyps are adenomatous and 10 years if polyps are hyperplastic. Above findings were reviewed with the patient and colon polyps and diverticulosis handouts were given in the discharge area Surgeon:?Gloria Hernandez MD Anesthesia:?MAC (Linette Lua CRNA) Was an Inside Sales Recruiter used for this Procedure?:?Yes Inside Sales Recruiter:?Ade Umanzor Estimated blood loss (mL):?0 Pathology:?other (A. sigmoid polyps? B. ascending colon polyps) Condition:?stable Disposition:?PACU
[2020-12-19 10:36] VITALS: BP 97/51; PULSE 79; RESP 16; TEMP 36.3; O2SAT 97
[2020-12-19 10:51] VITALS: BP 101/62; PULSE 80; RESP 16; TEMP 36.3; O2SAT 97
[2020-12-19] MEDS: Acetaminophen 325 MG TABLET 650 MG PO (10:52)
== END 2020-12-19 12:02 | disposition home or self-care (01) ==
PROVIDERS: PCP Internal Medicine; Visit Provider Internal Medicine Gastroenterology
PROC: 0DJD8ZZ Inspection of Lower Intestinal Tract, Via Natural or Artificial Opening Endoscopic (ICD-10-PCS; CPT 45378; principal; 2020-12-19 10:40)
DX: Z12.11 Encounter for screening for malignant neoplasm of colon (principal); K59.00 Constipation, unspecified; D12.2 Benign neoplasm of ascending colon; D12.5 Benign neoplasm of sigmoid colon; K57.30 Diverticulosis of large intestine without perforation or abscess without bleeding; K64.8 Other hemorrhoids; R10.9 Unspecified abdominal pain; E55.9 Vitamin D deficiency, unspecified; M85.89 Other specified disorders of bone density and structure, multiple sites; H91.90 Unspecified hearing loss, unspecified ear; Z87.19 Personal history of other diseases of the digestive system; Z87.442 Personal history of urinary calculi; Z79.899 Other long term (current) drug therapy; Z88.0 Allergy status to penicillin; Z88.1 Allergy status to other antibiotic agents; Z88.7 Allergy status to serum and vaccine; F17.210 Nicotine dependence, cigarettes, uncomplicated
CPT/HCPCS: 45385; 88305

== ENCOUNTER → 2021-01-02 08:18 | Outpatient (BNVA) | payer MEDICARE, SELFPAY | PROVIDERS: PCP Internal Medicine; Visit Provider Nurse Practitioner Family | DX: K59.04 Chronic idiopathic constipation (principal); K57.90 Diverticulosis of intestine, part unspecified, without perforation or abscess without bleeding; K58.2 Mixed irritable bowel syndrome; D36.9 Benign neoplasm, unspecified site; Z98.890 Other specified postprocedural states | CPT/HCPCS: Q3014 ==

== ENCOUNTER → 2021-02-06 10:56 | Outpatient (BNVA) | payer MEDICARE, SELFPAY | PROVIDERS: PCP Internal Medicine; Referring Provider Internal Medicine; Visit Provider Nurse Practitioner Family | DX: K58.1 Irritable bowel syndrome with constipation (principal); K59.04 Chronic idiopathic constipation | CPT/HCPCS: 99212 ==

== ENCOUNTER 2021-02-10 08:17 | Emergency (ER) | payer MEDICARE, SELFPAY ==
--- NOTE | ~2021-02-10 | CT_ITS ---
EXAMINATION: CT ABDOMEN AND PELVIS WITHOUT CONTRAST CLINICAL INFORMATION: Abdominal pain COMPARISON: CT chest 11/23/2020, 11/09/2013 TECHNIQUE: Multidetector volumetric imaging was performed from the superior aspect of the liver through the pubic symphysis. Sagittal and coronal reformatted images were obtained on the technologist's workstation. This CT examination was performed using dose optimization techniques as appropriate, variously including the following: *Automated exposure control *Adjustment of mA and/or kV according to patient size (this includes techniques or standardized protocols for targeted exams where dose is matched to indication/reason for exam; i.e. extremities or head) *Use of iterative reconstruction technique DLP: 412 mGy-cm FINDINGS: LUNG BASES: Pulmonary micronodule in the left lung base, 4:65 stable from 2013, likely benign. New right medial basilar pleural-based consolidation. ABDOMINAL AND PELVIC WALL: Unremarkable. LIVER AND BILIARY TREE: Unremarkable GALLBLADDER: Unremarkable PANCREAS: Unremarkable SPLEEN: Unremarkable ADRENAL GLANDS: Unremarkable. KIDNEYS AND URETERS: Benign-appearing Bosniak 1 right renal cyst. 3 mm nonobstructing left lower pole renal stone. UPPER GASTROINTESTINAL TRACT: The stomach and duodenum are unremarkable. VASCULAR: Unremarkable. LYMPH NODES: No lymphadenopathy. BLADDER: Unremarkable PELVIC VISCERA: Unremarkable LOWER GASTROINTESTINAL TRACT: Colonic diverticulosis without evidence of diverticulitis. Normal appendix. OSSEOUS STRUCTURES: Moderate degenerative disc disease at L4-L5. CT/CT abdomen pelvis wo con IMPRESSION: No acute intra-abdominal findings to explain symptoms of pain. New right medial basilar pleural-based consolidation, possibly reflective of atelectasis or airways infection. Recommend 3 month follow-up CT chest to ensure resolution. Colonic diverticulosis without evidence of diverticulitis.
--- NOTE | ~2021-02-10 | XR_ITS ---
EXAMINATION: XR CHEST CLINICAL INFORMATION: Generalized weakness COMPARISON: None TECHNIQUE: Frontal view of the chest was obtained. FINDINGS: Fusion changes lower cervical spine. No significant abnormality is noted involving the heart, lungs, mediastinum, bony thorax or soft tissues. XR/XR chest 1V IMPRESSION: No active chest disease.
[2021-02-10 08:30] VITALS: BP 147/79; PULSE 93; RESP 18; TEMP 36.6; O2SAT 96; BMI 23.8
--- NOTE | 2021-02-10 09:16 | ED.GENADULT ---
HPI - General Adult General Chief complaint: Abdominal Pain Stated complaint: stomach pain, diarrhea Time Seen by Provider: 02/10/21 09:13 Source: patient and family (Son.) Mode of arrival: ambulatory Limitations: no limitations History of Present Illness HPI narrative: 75 years old female came in for evaluation of generalized weakness, headache, body ache, flu-like symptoms, patient did not receive COVID vaccination, no sick contact, no recent travel. Patient also had a history of IBS with recent colonoscopy and 5 polyps removal. Patient is complaining of abdominal pain, no bowel movement for 4 days, no nausea, no vomiting, no fever, no chills. Related Data Previous Rx's Medication Instructions Recorded cholecalciferol (vitamin D3) 1,250 50,000 unit PO QWEEK #12 cap 02/12/20 mcg (50,000 unit) capsule atorvastatin 10 mg tablet 10 mg PO DAILY #90 tab 06/15/20 linaclotide 145 mcg capsule 145 mcg PO DAILY #30 cap 02/06/21 (Linzess) azithromycin 250 mg tablet See Rx Instructions .ROUTE 02/10/21 (Zithromax Z-Edgard) .COMPLEX #6 tab Allergies Allergy/AdvReac Type Severity Reaction Status Date / Time Penicillins [PENICILLINS] Allergy Intermediate HIVES Verified 02/06/21 11:01 influenza virus vaccine, Allergy Unknown PT Verified 02/06/21 11:01 specific DEVELOPED [FLU VACCINE] SOB AND LOCAL SWELLING THIS YR metronidazole [From Flagyl] AdvReac severe Verified 02/06/21 11:01 diarrhea, Review of Systems Review of Systems: All other systems are reviewed and are negative Constitutional: Reports as per HPI and Reports no additional constitutional complaints Eyes: Reports as per HPI and Reports no additional eye complaints Reports system reviewed and no additional complaints, except as documented Cardiovascular: Reports as per HPI and Reports no additional cardiovascular complaints Respiratory: Reports as per HPI and Reports no additional respiratory complaints Gastrointestinal: Reports as per HPI and Reports no additional gastrointestinal complaints Genitourinary: Reports no additional female genitourinary complaints Musculoskeletal: Reports no additional musculoskeletal complaints Skin/Breast: Reports system reviewed and no additional complaints, except as docu Psychiatric: Reports no additional psychiatric complaints Endocrine: Reports no additional endocrine complaints Hematologic/Lymphatic: Reports no additional hematologic/lymphatic complaints Allergic/Immunologic: Reports no additional allergic/immunologic complaints Reports system reviewed and no additional complaints, except as documented and Reports Abnormal speech present PMFSH Past Medical History Medical History Hearing loss History of nephrolithiasis Lumbar disc herniation Osteopenia of multiple sites Smoker Tubular adenoma Vitamin D deficiency Surgical History History of cataract extraction History of fusion of cervical spine History of lumbar discectomy Hx of colonoscopy Family History Family History Father Cancer Mother Diabetes mellitus Sister Brain cancer Social History Social History Alcohol intake: former Patient Tobacco Use Status: Former Tobacco user Years Smoked: 50 Advance Directives: No Advance Directives Information Provided: Yes Physical Exam Vital Signs: Vital Signs: Last Vital Signs Temp 98 F 02/10/21 08:30 Pulse 93 02/10/21 08:30 Resp 18 02/10/21 08:30 BP 147/79 H 02/10/21 08:30 Pulse Ox 96 02/10/21 08:30 BMI result Body Mass Index 23.8 Vital signs have been reviewed as appeared to be correct. Blood pressure normal. Heart rate normal. Respiration rate normal. Temperature normal. Oxygen saturation normal. Appearance: Alert. Oriented X3. No acute distress. Head: Normal external exam. Normocephalic. Atraumatic. No Meeks signs noted. No raccoon eyes noted Eyes: PERRLA. EOMI. Conjunctiva and sclera normal. Eyelids normal. ENT: TM's Normal. Pharynx normal. Uvula midline. Moist mucous membranes. No trismus noted. No drooling noted. No muffled voice noted. Neck: Normal inspection. Neck supple. FROM. No adenopathy. Thyroid Normal. No meningeal signs. No neck mass noted. CVS: Normal heart rate and rhythm. Heart sound normal. No murmurs noted. Pulses normal throughout. Respiratory: No respiratory distress. Painless inspiration. Breath sounds normal. No wheezes/rales/rhonchi noted. Chest nontender. No accessory muscle usage noted or decreased air movement noted. Abdomen: Soft and nontender. Bowel sounds normal in all 4 quadrants. No distention noted. No organomegaly noted. No visible injury noted. Back: No CVA tenderness. Full range of motion noted. Skin: Skin warm and dry. Normal skin color. Normal skin turgor. No rashes/lesions/lacerations noted. Extremities: No lower extremity edema. Extremities exhibit normal range of motion. Extremities nontender. Neuro: Oriented X 3. Cranial nerve exam: II-XII are grossly intact No motor deficit. No sensory deficit. Reflexes normal. Course Course Course Narrative: Assessment and plan. 75-year-old female came in evaluation of flu-like symptoms, abdominal pain patient has known history of IBS, patient tested positive for COVID. Chest x-ray show no pathology, no hypoxia, labs are unremarkable, patient is stable to go home. Patient/family instructed for self quarantine for 2 weeks, frequent hand washing, face mask, social distancing, return if worsening of respiratory symptoms. Abdomen CT showing new right hilar consultation which is possibly atelectasis in this patient's sitting all start the patient on Z-Edgard. Medical Decision Making Medical Records Medical records reviewed: Yes I reviewed the patient's medical records. Lab Data Lab results reviewed: Yes I reviewed the patient's lab results. Result diagrams: 02/10/21 11:04 02/10/21 11:04 Labs: Lab Results 02/10/21 02/10/21 02/10/21 Range/Units 10:47 11:04 11:04 WBC 6.2 (4.8-10.8) X10*3/uL RBC 4.38 (4.20-5.50) X10*6/uL Hgb 13.4 (12.0-16.0) g/dl Hct 40.0 (37.0-47.0) % MCV 91.3 (80.0-98.0) fL MCH 30.6 (27.0-33.0) pg MCHC 33.5 (31.0-35.0) g/dl RDW 13.3 (11.0-16.0) % Plt Count 205 (160-400) X10*3/uL MPV 10.3 (9.4-12.3) fL Immature Gran % (Auto) 0.3 (0.0-0.4) % Neut % (Auto) 63.3 (45-73) % Lymph % (Auto) 24.7 (20-40) % [place] % (Auto) 10.3 (2-11) % Eos % (Auto) 1.1 (0-4) % Baso % (Auto) 0.3 (0-2) % Lymph # (Auto) 1.5 (1.2-4.9) X10*3/uL [place] # (Auto) 0.6 (0.1-1.2) X10*3/uL Eos # (Auto) 0.1 (0.0-0.4) X10*3/uL Baso # (Auto) 0.0 (0.0-0.2) X10*3/uL Abs Immat Gran (auto) 0.02 (0.00-0.03) X10*3/uL Absolute Neuts (auto) 3.9 (2.0-8.3) x10*3/uL Absolute Nucleated RBC 0.000 (0.0-0.012) X10*3/uL Nucleated RBC % (auto) 0.0 (0.0-0.2) /100WBC Smear Tech's Comments VERIFIED Sodium 142 (135-145) mmol/L Potassium 3.8 (3.3-5.1) mmol/L Chloride 108 (96-108) mmol/L Carbon Dioxide 27 (22-29) mmol/L Anion Gap 11 L (12-20) BUN 11 (9-16) mg/dL Creatinine 0.65 (0.5-1.4) mg/dL Estim Creat Clear Calc 56.4 Estimated GFR > 60 Random Glucose 96 (60-115) mg/dL Lactic Acid (0.5-2.0) mmol/L Calcium 8.6 D (8.4-10.2) mg/dL Total Bilirubin 0.7 (0.0-1.0) mg/dL Direct Bilirubin 0.3 (0.0-0.5) mg/dL AST 21 (5-31) U/L ALT 22 (0-31) U/L Alkaline Phosphatase 83 (39-117) U/L Troponin I High Sens (<3.5-17.0) ng/L B-Natriuretic Peptide (<100) pg/mL Total Protein 6.4 L (6.5-8.0) g/dL Albumin 3.9 (3.5-5.0) g/dL Lipase 10 (8-78) U/L Urine Color YELLOW Urine Appearance HAZY Urine pH 6.0 (5.0-8.0) Ur Specific [place] <= 1.005 (1.005-1.025) Urine Protein NEG (NEG-TRACE) MG/DL Urine Glucose (UA) NEG (NEG) MG/DL Urine Ketones NEG (NEG) MG/DL Urine Blood 1+ H (NEG) Urine Nitrite NEG (NEG) Ur Leukocyte Esterase 2+ H (NEG) Urine RBC 1-4 (0) /HPF Urine WBC 10-14 H (0-4) /HPF Ur Squamous Epith Cells 1+ /LPF Ur Renal Epithelial Cell TRACE /LPF Urine Bacteria TRACE /LPF Influenza Type A (PCR) (Negative) Influenza Type B (PCR) (Negative) RSV RNA Qual (PCR) (Negative) SARS-CoV-2 RNA (RT-PCR) (Negative) 02/10/21 02/10/21 02/10/21 Range/Units 11:04 11:04 11:04 WBC (4.8-10.8) X10*3/uL RBC (4.20-5.50) X10*6/uL Hgb (12.0-16.0) g/dl Hct (37.0-47.0) % MCV (80.0-98.0) fL MCH (27.0-33.0) pg MCHC (31.0-35.0) g/dl RDW (11.0-16.0) % Plt Count (160-400) X10*3/uL MPV (9.4-12.3) fL Immature Gran % (Auto) (0.0-0.4) % Neut % (Auto) (45-73) % Lymph % (Auto) (20-40) % [place] % (Auto) (2-11) % Eos % (Auto) (0-4) % Baso % (Auto) (0-2) % Lymph # (Auto) (1.2-4.9) X10*3/uL [place] # (Auto) (0.1-1.2) X10*3/uL Eos # (Auto) (0.0-0.4) X10*3/uL Baso # (Auto) (0.0-0.2) X10*3/uL Abs Immat Gran (auto) (0.00-0.03) X10*3/uL Absolute Neuts (auto) (2.0-8.3) x10*3/uL Absolute Nucleated RBC (0.0-0.012) X10*3/uL Nucleated RBC % (auto) (0.0-0.2) /100WBC Smear Tech's Comments Sodium (135-145) mmol/L Potassium (3.3-5.1) mmol/L Chloride (96-108) mmol/L Carbon Dioxide (22-29) mmol/L Anion Gap (12-20) BUN (9-16) mg/dL Creatinine (0.5-1.4) mg/dL Estim Creat Clear Calc Estimated GFR Random Glucose (60-115) mg/dL Lactic Acid 0.8 (0.5-2.0) mmol/L Calcium (8.4-10.2) mg/dL Total Bilirubin (0.0-1.0) mg/dL Direct Bilirubin (0.0-0.5) mg/dL AST (5-31) U/L ALT (0-31) U/L Alkaline Phosphatase (39-117) U/L Troponin I High Sens 3.7 (<3.5-17.0) ng/L B-Natriuretic Peptide < 10 (<100) pg/mL Total Protein (6.5-8.0) g/dL Albumin (3.5-5.0) g/dL Lipase (8-78) U/L Urine Color Urine Appearance Urine pH (5.0-8.0) Ur Specific [place] (1.005-1.025) Urine Protein (NEG-TRACE) MG/DL Urine Glucose (UA) (NEG) MG/DL Urine Ketones (NEG) MG/DL Urine Blood (NEG) Urine Nitrite (NEG) Ur Leukocyte Esterase (NEG) Urine RBC (0) /HPF Urine WBC (0-4) /HPF Ur Squamous Epith Cells /LPF Ur Renal Epithelial Cell /LPF Urine Bacteria /LPF Influenza Type A (PCR) (Negative) Influenza Type B (PCR) (Negative) RSV RNA Qual (PCR) (Negative) SARS-CoV-2 RNA (RT-PCR) (Negative) 02/10/21 Range/Units 11:26 WBC (4.8-10.8) X10*3/uL RBC (4.20-5.50) X10*6/uL Hgb (12.0-16.0) g/dl Hct (37.0-47.0) % MCV (80.0-98.0) fL MCH (27.0-33.0) pg MCHC (31.0-35.0) g/dl RDW (11.0-16.0) % Plt Count (160-400) X10*3/uL MPV (9.4-12.3) fL Immature Gran % (Auto) (0.0-0.4) % Neut % (Auto) (45-73) % Lymph % (Auto) (20-40) % [place] % (Auto) (2-11) % Eos % (Auto) (0-4) % Baso % (Auto) (0-2) % Lymph # (Auto) (1.2-4.9) X10*3/uL [place] # (Auto) (0.1-1.2) X10*3/uL Eos # (Auto) (0.0-0.4) X10*3/uL Baso # (Auto) (0.0-0.2) X10*3/uL Abs Immat Gran (auto) (0.00-0.03) X10*3/uL Absolute Neuts (auto) (2.0-8.3) x10*3/uL Absolute Nucleated RBC (0.0-0.012) X10*3/uL Nucleated RBC % (auto) (0.0-0.2) /100WBC Smear Tech's Comments Sodium (135-145) mmol/L Potassium (3.3-5.1) mmol/L Chloride (96-108) mmol/L Carbon Dioxide (22-29) mmol/L Anion Gap (12-20) BUN (9-16) mg/dL Creatinine (0.5-1.4) mg/dL Estim Creat Clear Calc Estimated GFR Random Glucose (60-115) mg/dL Lactic Acid (0.5-2.0) mmol/L Calcium (8.4-10.2) mg/dL Total Bilirubin (0.0-1.0) mg/dL Direct Bilirubin (0.0-0.5) mg/dL AST (5-31) U/L ALT (0-31) U/L Alkaline Phosphatase (39-117) U/L Troponin I High Sens (<3.5-17.0) ng/L B-Natriuretic Peptide (<100) pg/mL Total Protein (6.5-8.0) g/dL Albumin (3.5-5.0) g/dL Lipase (8-78) U/L Urine Color Urine Appearance Urine pH (5.0-8.0) Ur Specific [place] (1.005-1.025) Urine Protein (NEG-TRACE) MG/DL Urine Glucose (UA) (NEG) MG/DL Urine Ketones (NEG) MG/DL Urine Blood (NEG) Urine Nitrite (NEG) Ur Leukocyte Esterase (NEG) Urine RBC (0) /HPF Urine WBC (0-4) /HPF Ur Squamous Epith Cells /LPF Ur Renal Epithelial Cell /LPF Urine Bacteria /LPF Influenza Type A (PCR) NEGATIVE (Negative) Influenza Type B (PCR) NEGATIVE (Negative) RSV RNA Qual (PCR) NEGATIVE (Negative) SARS-CoV-2 RNA (RT-PCR) POSITIVE A (Negative) Imaging Data Chest x-ray: Attestation: I personally reviewed and interpreted this imaging study as follows: Radiologist's impression: No active chest disease. CT scan - abdomen: Attestation: I personally reviewed and interpreted this imaging study as follows: Radiologist's impression: No acute intra-abdominal findings to explain symptoms of pain. ? New right medial basilar pleural-based consolidation, possibly reflective of atelectasis or airways infection. Recommend 3 month follow-up CT chest to ensure resolution. ? Colonic diverticulosis without evidence of diverticulitis. Discharge Plan Discharge Clinical Impression: COVID-19 Patient Disposition: Home, Self-Care Instructions: COVID-19 (Coronavirus Disease 2019) (ED) Prescriptions: New azithromycin [Zithromax Z-Edgard] 250 mg tablet See Rx Instructions .ROUTE .COMPLEX Qty: 6 RF: 0 No Action cholecalciferol (vitamin D3) 1,250 mcg (50,000 unit) capsule 50,000 unit PO QWEEK Qty: 12 RF: 0 atorvastatin 10 mg tablet 10 mg PO DAILY Qty: 90 RF: 3 Linzess 145 mcg capsule 145 mcg PO DAILY Qty: 30 RF: 5 Referrals: Lizzie Lantigua MD [Primary Care Provider] - 2 days
[2021-02-10] MEDS: 0.9 % Sodium Chloride 1,000 ML 999 ML IVCONT (09:46)
[2021-02-10 11:05] LABS: Color Urine YELLOW; Glucose Urine UA NEG (NEG); Leukocyte Esterase Urine 2+ (NEG); Nitrite Urine NEG (NEG); Specific Gravity - Urine <= 1.005 (1.005-1.025); UACC Culture Trigger YES; Urine Blood 1+ (NEG); Urine Ketones NEG (NEG); Urine Protein NEG (NEG-TRACE)
[2021-02-10 11:06] LABS: Appearance Urine HAZY
[2021-02-10 11:11] LABS: Bacteria Urine TRACE /LPF; Renal Epithelial Cells Urine TRACE /LPF; Squamous Epithelial Cell Urine 1+ /LPF
[2021-02-10 11:14] LABS: Basophils Percent Auto 0.3 % (0-2); Eosinophils Absolute Auto 0.1 X10*3/uL (0.0-0.4); Eosinophils Percent Auto 1.1 % (0-4); Hemoglobin 13.4 g/dl (12.0-16.0); Imm Gran Abs Auto 0.02 X10*3/uL (0.00-0.03); Imm Gran Pct Auto 0.3 % (0.0-0.4); Lymphocytes Absolute Auto 1.5 X10*3/uL (1.2-4.9); Lymphocytes Percent Auto 24.7 % (20-40); MANUAL DIFF FLAG SCAN; Mean Corpuscular HGB Conc 33.5 g/dl (31.0-35.0); Mean Corpuscular Hemoglobin 30.6 pg (27.0-33.0); Mean Corpuscular Volume 91.3 fL (80.0-98.0); Mean Platelet Volume 10.3 fL (9.4-12.3); Monocytes Absolute Auto 0.6 X10*3/uL (0.1-1.2); Monocytes Percent Auto 10.3 % (2-11); Neutrophils Absolute Auto 3.9 x10*3/uL (2.0-8.3); Neutrophils Percent Auto 63.3 % (45-73); Platelet Count 205 X10*3/uL (160-400); Red Blood Count 4.38 X10*6/uL (4.20-5.50); Red Cell Distribution Width 13.3 % (11.0-16.0); SCAN SMEAR FLAG 1; White Blood Count 6.2 X10*3/uL (4.8-10.8)
[2021-02-10 11:28] LABS: Lactic Acid 0.8 mmol/L (0.5-2.0)
[2021-02-10 11:33] LABS: Alanine Aminotransferase 22 U/L (0-31); Albumin Level 3.9 g/dL (3.5-5.0); Alkaline Phosphatase 83 U/L (39-117); Anion Gap 11 (12-20); Aspartate Amino Transferase 21 U/L (5-31); Bilirubin Direct 0.3 mg/dL (0.0-0.5); Bilirubin Total 0.7 mg/dL (0.0-1.0); Blood Urea Nitrogen 11 mg/dL (9-16); Calcium 8.6 mg/dL (8.4-10.2); Carbon Dioxide 27 mmol/L (22-29); Chloride 108 mmol/L (96-108); Creatinine Clr Calc Pharmacy 56.4; Estimated Glomerular Filt Rate > 60; Glucose Random 96 mg/dL (60-115); Lipase 10 U/L (8-78); Potassium 3.8 mmol/L (3.3-5.1); Sodium 142 mmol/L (135-145); Total Protein 6.4 g/dL (6.5-8.0)
[2021-02-10 11:36] LABS: B Type Natriuretic Peptide < 10 pg/mL (<100); Troponin-I High Sensitivity 3.7 ng/L (<3.5-17.0)
[2021-02-10 11:39] LABS: SLIDE REVIEW VERIFIED
[2021-02-10 12:32] LABS: Influenza A PCR NEGATIVE (Negative); Influenza B PCR NEGATIVE (Negative); Resp Syncy Virus RNA Qual PCR NEGATIVE (Negative); SARS COV2 PCR INHOUSE POSITIVE (Negative)
[2021-02-10] MEDS: Acetaminophen 325 MG TABLET 650 MG PO (12:37)
[2021-02-10] MEDS: ondansetron HCL 4 MG/2 ML VIAL IVPUSH (12:38)
== END 2021-02-10 13:59 | disposition home or self-care (01) ==
PROVIDERS: Emergency Provider Emergency Medicine; PCP Internal Medicine
DX: U07.1 COVID-19 (principal); R10.9 Unspecified abdominal pain
CPT/HCPCS: 0241U; 36415; 71045; 74176; 80048; 80076; 81001; 81003; 83605; 83690; 83880; 84484; 85025; 87040; 87086; 96361; 96374; 99284; J2405

== ENCOUNTER → 2021-04-09 11:16 | Outpatient (BNVA) | payer MEDICARE, SELFPAY | PROVIDERS: PCP Internal Medicine; Referring Provider Internal Medicine; Visit Provider Nurse Practitioner Family | DX: K59.04 Chronic idiopathic constipation (principal); R14.0 Abdominal distension (gaseous) | CPT/HCPCS: Q3014 ==

== ENCOUNTER → 2021-07-06 09:24 | Outpatient (BNVA) | payer MEDICARE, SELFPAY | PROVIDERS: PCP Internal Medicine; Referring Provider Internal Medicine; Visit Provider Nurse Practitioner Family | DX: K59.04 Chronic idiopathic constipation (principal); R14.0 Abdominal distension (gaseous) | CPT/HCPCS: 99212 ==

== ENCOUNTER 2021-10-17 07:24 | Outpatient (REF) | payer MEDICARE, SELFPAY ==
[2021-10-17 12:05] LABS: Alanine Aminotransferase 11 U/L (0-31); Aspartate Amino Transferase 14 U/L (5-31); Cholesterol 160 mg/dL; HDL Cholesterol 50 mg/dL; LDL Cholesterol Calculated 91 mg/dl; Triglycerides 95 mg/dL
[2021-10-17 12:16] LABS: Vitamin D 25-OH Total 54.2 ng/mL (>30)
== END 2021-10-17 07:25 | disposition home or self-care (01) ==
LOC: HO.HMGCLDS 07:24
PROVIDERS: PCP Internal Medicine; Visit Provider Internal Medicine
DX: E78.5 Hyperlipidemia, unspecified (principal); E55.9 Vitamin D deficiency, unspecified; N95.9 Unspecified menopausal and perimenopausal disorder
CPT/HCPCS: 36415; 80061; 82306; 84450; 84460

== ENCOUNTER 2021-11-16 10:04 | Outpatient (REF) | payer MEDICARE, SELFPAY ==
--- NOTE | ~2021-11-16 | MM_ITS ---
EXAMINATION: BONE DENSITOMETRY CLINICAL INDICATION: Menopause. COMPARISON: Previous BD dated 12/10/2018 and baseline BD dated 11/21/2009. TECHNIQUE: Using a AngioSlide DXA System (software version: 13.1) manufactured by [employer], dual-energy x-ray absorptiometry was performed of the lumbar spine and left hip. The images are of good technical quality. Summary results are attached. FINDINGS: AP SPINE L1-L4: Current: BMD 0.877 g/cm2, Z-score -0.6, T-score -2.5, osteoporosis, 2.1% decrease from previous, 13.5% decrease from baseline (<5% change is not significant). Prior: BMD 0.896 g/cm2. Baseline: BMD 1.014 g/cm2. LEFT FEMUR, NECK: Current: BMD 0.715 g/cm2, Z-score -0.2, T-score -2.3, osteopenia. Prior: BMD 0.723 g/cm2. Baseline: BMD 0.795 g/cm2. LEFT FEMUR, TOTAL: Current: BMD 0.782 g/cm2, Z-score 0.1, T-score -1.8, osteopenia, 4.5% increase from previous, 3.8% decrease from baseline (<5% change is not significant). Prior: BMD 0.748 g/cm2. Baseline: BMD 0.813 g/cm2. IDENTIFIED RISK FACTORS: Menopause, tobacco use (current smoker). HISTORY OF FRACTURE: None listed. MEDICATIONS: Vitamin D. MM/XR DEXA axial skeleton IMPRESSION: 1. DIAGNOSIS: Osteoporosis based on the lowest T-score value of -2.5 in the lumbar spine applying World Health Organization criteria. 2. 10-YEAR FRACTURE RISK PREDICTION, FRAX: According to the guidelines, FRAX calculation should only be performed on patients in the osteopenia bone density category. Therefore, FRAX was not performed on this patient. 3. Treatment Recommendations: NOF guidelines recommend consideration for treatment in postmenopausal women and men age 50 and older presenting with the following: -A hip or vertebral (clinical or morphometric) fracture. -T-score less than or equal to -2.5 at the femoral neck or spine after appropriate evaluation to exclude secondary causes. -Low bone mass at the hip or spine and a 10-year fracture probability by FRAX of greater than or equal to 3% for hip fracture or greater than or equal to 20% for major osteoporotic fracture based on the [place] adapted WHO algorithm. 4. Other Recommendations: All treatment decisions require clinical judgment and consideration of individual patient factors, including patient preferences, comorbidities, previous drug use, risk factors not captured in the FRAX model (e.g. frailty, falls, vitamin D deficiency, increased bone turnover, interval significant decline in bone density) and possible under or overestimation of fracture risk by FRAX. Additional medical evaluation for secondary cause of low bone mineral density may be appropriate. FUTURE SCAN RECOMMENDATION: People with diagnosed cases of osteoporosis or at high risk for fracture should have regular bone mineral density tests. For patients eligible for Medicare, routine testing is allowed once every 2 years. The testing frequency can be increased to one year for patients who have rapidly progressing disease, those who are receiving or discontinuing medical therapy to restore bone mass, or have additional risk factors.
== END 2021-11-16 10:05 | disposition home or self-care (01) ==
LOC: HO.MAMMO 10:04
PROVIDERS: PCP Internal Medicine; Visit Provider Internal Medicine
DX: Z13.820 Encounter for screening for osteoporosis (principal); Z78.0 Asymptomatic menopausal state; F17.200 Nicotine dependence, unspecified, uncomplicated
CPT/HCPCS: 77080

== ENCOUNTER → 2022-01-03 09:18 | Outpatient (BNVA) | payer MEDICARE, SELFPAY | PROVIDERS: PCP Internal Medicine; Visit Provider Nurse Practitioner Family | DX: K58.1 Irritable bowel syndrome with constipation (principal); K59.04 Chronic idiopathic constipation | CPT/HCPCS: 99212 ==

== ENCOUNTER 2022-01-04 09:09 | Outpatient (REF) | payer MEDICARE, SELFPAY ==
[2022-01-16 19:21] LABS: Pancreatic Elastase-1 >500 mcg/g
== END 2022-01-04 09:10 | disposition home or self-care (01) ==
LOC: HO.LNP 09:09
PROVIDERS: Visit Provider Nurse Practitioner Family
DX: R10.9 Unspecified abdominal pain (principal)
CPT/HCPCS: 82656

== ENCOUNTER 2022-01-14 07:29 | Outpatient (REF) | payer MEDICARE, SELFPAY ==
[2022-01-14 12:25] LABS: Alanine Aminotransferase 17 U/L (0-31); Aspartate Amino Transferase 16 U/L (5-31); Cholesterol 156 mg/dL; HDL Cholesterol 49 mg/dL; LDL Cholesterol Calculated 83 mg/dl; Triglycerides 120 mg/dL; Vitamin D 25-OH Total 47.5 ng/mL (>30)
== END 2022-01-14 07:30 | disposition home or self-care (01) ==
LOC: HO.HMGCLDS 07:29
PROVIDERS: PCP Internal Medicine; Visit Provider Internal Medicine
DX: N95.8 Other specified menopausal and perimenopausal disorders (principal); E78.5 Hyperlipidemia, unspecified
CPT/HCPCS: 36415; 80061; 82306; 84450; 84460

== ENCOUNTER → 2022-04-03 09:57 | Outpatient (BNVA) | payer MEDICARE, SELFPAY | PROVIDERS: PCP Internal Medicine; Visit Provider Nurse Practitioner Family | DX: K58.1 Irritable bowel syndrome with constipation (principal); K59.04 Chronic idiopathic constipation | CPT/HCPCS: 99212 ==

== ENCOUNTER → 2022-06-25 13:22 | Outpatient (BNVA) | payer MEDICARE, SELFPAY | PROVIDERS: PCP Internal Medicine; Visit Provider Nurse Practitioner Family | DX: K59.04 Chronic idiopathic constipation (principal); K58.9 Irritable bowel syndrome, unspecified; Z86.010 Personal history of colon polyps | CPT/HCPCS: 99212 ==

== ENCOUNTER 2022-06-28 07:32 | Outpatient (REF) | payer MEDICARE, SELFPAY ==
[2022-06-28 12:24] LABS: Alanine Aminotransferase 12 U/L (0-31); Anion Gap 12 (12-20); Aspartate Amino Transferase 15 U/L (5-31); Blood Urea Nitrogen 13 mg/dL (9-16); Calcium 9.2 mg/dL (8.4-10.2); Carbon Dioxide 28 mmol/L (22-29); Chloride 106 mmol/L (96-108); Cholesterol 151 mg/dL; Estimated Glomerular Filt Rate > 60; Glucose Fasting 97 mg/dL (60-99); HDL Cholesterol 45 mg/dL; LDL Cholesterol Calculated 86 mg/dl; Sodium 142 mmol/L (135-145); Triglycerides 101 mg/dL; Vitamin D 25-OH Total 45.6 ng/mL (>30)
== END 2022-06-28 07:33 | disposition home or self-care (01) ==
LOC: HO.HMGCLDS 07:32
PROVIDERS: PCP Internal Medicine; Visit Provider Internal Medicine
DX: E78.5 Hyperlipidemia, unspecified (principal); M81.0 Age-related osteoporosis without current pathological fracture
CPT/HCPCS: 36415; 80048; 80061; 82306; 84450; 84460

== ENCOUNTER 2022-07-03 10:31 | Outpatient (AMB) | payer MEDICARE, SELFPAY ==
--- NOTE | 2022-07-01 11:54 | A.OFFPC_ITS ---
<Statement entered by Lizzie Lantigua MD - 07/22/24 16:34> This note has been administratively?closed. Vital Signs 07/03/22 10:36 Height 5 ft 1 in Weight 135 lb 4 oz BMI 25.6 BP 120/82 Blood Pressure Location Lt brachial Position Sitting Pulse 97 Pulse Source Pulse Oximeter Pulse Oximetry (%) 96 Oxygen Delivery Method Room Air Intake Visit Reasons: 5 month follow up Allergies oxycodone Allergy (Intermediate, Verified 05/19/24 10:18) Migraine Penicillins [PENICILLINS] Allergy (Intermediate, Verified 05/19/24 10:18) HIVES prednisone Allergy (Intermediate, Verified 05/19/24 10:18) yeast infection influenza virus vaccine, specific [FLU VACCINE] Allergy (Unknown, Verified 05/19/24 10:18) PT DEVELOPED SOB AND LOCAL SWELLING THIS YR metronidazole [From Flagyl] Adverse Reaction (Verified 05/19/24 10:18) severe diarrhea, Tobacco use date assessed: 07/03/22 Fall risk assessment: No Falls in past year Last assessed Fall Risk: 07/03/22 [facility] Medical History 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 Elevated blood pressure reading Tobacco use disorder, mild, abuse Mammogram declined Immunization declined Tubular adenoma Smoker History of nephrolithiasis Lumbar disc herniation Hearing loss Osteopenia of multiple sites Vitamin D deficiency Surgical History History of fusion of cervical spine History of lumbar discectomy History of cataract extraction Hx of colonoscopy Family History Father Cancer Mother Diabetes mellitus Sister Brain cancer Social History Housing: House Alcohol intake: former Patient Tobacco Use Status: Current everyday Tobacco user Cigarettes Per Day: 3 Years Smoked: 50 e-Cigarette/Vaping Use: Never Used service: No Current occupational status: retired Cognitive needs: No Hearing needs: Yes Vision needs: Yes Questionnaire PHQ-9 Over the last 2 weeks, how often have you been bothered by any of the following problems? 1. Little interest or pleasure in doing things: not at all 2. Feeling down, depressed, or hopeless: not at all 3. Trouble falling or staying asleep, or sleeping too much: not at all 4. Feeling tired or having little energy: not at all 5. Poor appetite or overeating: not at all 6. Feeling bad about yourself - or that you are a failure or have let yourself or your family down: not at all 7. Trouble concentrating on things, such as reading the newspaper or watching television: not at all 8. Moving or speaking so slowly that other people could have noticed. Or the opposite - being so fidgety or restless that you have been moving around a lot more than usual: not at all 9. Thoughts that you would be better off or of hurting yourself in some way: not at all Total score: 0 Source: Developed by Drs. Huy Junior, Marika Maurer, Dion Wright and colleagues, with an educational joselyn from [employer]. Thrive Questionnaire Date Thrive assessed: 07/03/22 I am a: Patient What is your living situation today?: I have a steady place to live Within the past 12 months, did the food you bought not last and you didn't have the money to get more?: Never true Within the past 12 months, did you worry whether your food would run out before you got money to buy more?: Never true Do you have trouble paying for medicines?: No Do you have trouble getting transportation to medical appointments?: No Do you have trouble paying your heating and electricity bill?: No Do you have trouble taking care of your child, family member or friend?: No Do you have trouble with day-to-day activities such as bathing, preparing meals, shopping, managing finances, etc.?: No Are you currently unemployed and looking for a job?: No Are you interested in more education?: No AUDIT C Alcohol Use Questionnaire (AUDIT-C) 1. How often do you have a drink containing alcohol?: Never Total Score: 0 CAROLIN-7 AMB Questionnaire CAROLIN-7 Date CAROLIN - 7 assessed: 07/03/22 Feeling nervous, anxious, or on edge: 0 = Not at all Not being able to stop or control worryin = Not at all Worrying too much about different things: 0 = Not at all Trouble relaxin = Not at all Being so restless that it is hard to sit still: 0 = Not at all Becoming easily annoyed or irritable: 0 = Not at all Feeling afraid as if something awful might happen: 0 = Not at all Total CAROLIN-7 score (0-4 normal; 5-9 mild; 10-14 moderate; 15-21 severe): 0 Source: Developed by Drs. Huy Junior, Marika Muarer, Dion Wright and colleagues, with an educational joselyn from [employer]. Physical exam (Primary Care) Vital Signs: Last Vital Signs Pulse 97 07/03/22 10:36 BP 120/82 07/03/22 10:36 Pulse Ox 96 07/03/22 10:36 Oxygen Delivery Method Room Air 07/03/22 10:36 BMI result Body Mass Index 25.6 Tobacco/Smoking Status: Tobacco use Status Tobacco use date assessed 07/03/22 07/03/22 10:42 Patient Tobacco Use Status Current everyday Tobacco 07/01/22 11:55 e-Cigarette/Vaping Use Never Used 07/01/22 11:55 PHQ-9: PHQ-9 Score PHQ-9: Total score 0 07/03/22 11:36 Thrive Assessment: Date of Thrive Assessment Date Thrive assessed 07/03/22 07/03/22 11:36 Results Reviewed Results Reviewed: NTERED: 06/28/22-0734 NAHUN GTZ: ORDERED: Met Prof Fast, AST, ALT, Lipid Panel, Vitamin D 25-OH Test Result Flag Reference Site Sodium 142 135-145 mmol/L Potassium 4.0 3.3-5.1 mmol/L CL 106 96-108 mmol/L CO2 28 22-29 mmol/L Gap 12 12-20 BUN 13 9-16 mg/dL Creat 0.69 0.5-1.4 mg/dL EGFR > 60 NOTE: For -[place] individuals, multiply the result by 1.210. Chronic Kidney Disease: Estimated GFR < 60 mL/min/1.73m2 Severe Kidney Disease: Estimated GFR < 15 mL/min/1.73m2 FBS 97 60-99 mg/dL CA 9.2 # 8.4-10.2 mg/dL AST (GOT) 15 5-31 U/L ALT (GPT) 12 0-31 U/L Triglyceride 101 mg/dL Desirable Triglyceride: less than 150 mg/dL Borderline High Triglyceride 150-199 mg/dL High Triglyceride: 200-499 mg/dL Very High Triglyceride: greater than or equal to 5OO mg/dL Chol 151 mg/dL Desirable Cholesterol: less than 200 mg/dL Borderline High Cholesterol: 200-239 mg/dL High Cholesterol: greater than 239 mg/dL LDL Calculated 86 mg/dl Desirable LDL: less than 100 mg/dL Near Optimal/Above Optimal LDL: 110-129 mg/dL Borderline High LDL: 130-159 mg/dL High LDL: 160-189 mg/dL Very High LDL: greater than or equal to 190 mg/dL HDL 45 mg/dL Desirable HDL: greater than 40 mg/dL Note: This HDL assay may give artificially low results in patients with liver disease. Vit D 25-OH Tot 45.6 >30 ng/mL Health Based Reference Values* < 20 ng/mL Deficient 20-30 ng/mL Insufficient > 30 ng/mL Sufficient Coding Level of Care Code Admin Sign Off/No Billing Diagnoses Osteoporosis of lumbar spine M81.0 Tobacco use disorder, mild, abuse F17.200 Mammogram declined Z53.20 Immunization declined Z28.21 Tubular adenoma D36.9 Dyslipidemia E78.5 Smoker unmotivated to quit F17.200
[2022-07-03 10:36] VITALS: BP 120/82; PULSE 97; O2SAT 96; BMI 25.6
== END 2022-07-03 11:18 | disposition home or self-care (01) ==
LOC: HO.HMGC 10:31
PROVIDERS: PCP Internal Medicine; Visit Provider Internal Medicine
DX: M81.0 Age-related osteoporosis without current pathological fracture (principal); F17.200 Nicotine dependence, unspecified, uncomplicated; Z53.20 Procedure and treatment not carried out because of patient's decision for unspecified reasons; Z28.21 Immunization not carried out because of patient refusal; D36.9 Benign neoplasm, unspecified site; E78.5 Hyperlipidemia, unspecified
CPT/HCPCS: 99499

== ENCOUNTER 2022-09-25 10:28 | Outpatient (AMB) | payer MEDICARE, SELFPAY ==
--- NOTE | 2022-09-25 10:42 | MHC.OFFVIS ---
Intake Vital Signs 09/25/22 10:44 Height 5 ft 1 in Weight 130 lb 1.164 oz BMI 24.6 BP 123/80 Blood Pressure Location Lt brachial Position Sitting Pulse 65 Intake Visit Reasons: 2 MONTHS FOLLOW UP Intake Note: Marah presents in office as a est.patient for 2month f/u for [facility]. 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 Patient reports that she has not seen any difference since she started taking Linzess 290 mcg.? Patient states that she still is constipated once in a while.? If she does not have a bowel movement or does not feel like she empties completely she will take Senokot.? Patient states that she takes every 2nd or 3rd day stool softener in the evening.? Patient reports postprandial abdominal bloating..? Patient states that she loves to eat beans.? That could be something that is also making her bloated.? Patient also reports that she is under lot of stress taking care of her , household.? Patient denies melena, hematochezia, unintentional weight loss or ribbon like stools.? Patient denies any dyspepsia, dysphagia or odynophagia. ? TODAY'S VISIT Patient is here today for follow-up. Patient reports that she takes Linzess as well as stool softeners and the evening and moves her bowels for the most part, however she does report to be very bloated. Patient is trying to avoid certain food, however she feels like she is bloated all the time specially after meals. Patient denies melena, hematochezia, unintentional weight loss or ribbon like stools. Patient denies any dyspepsia, dysphagia or odynophagia her patient denies any other GI symptoms. COUNTS INCLUDE 234 BEDS AT THE [facility] Medical History Elevated blood pressure reading Hearing loss History of nephrolithiasis Immunization declined Lumbar disc herniation Mammogram declined Osteopenia of multiple sites Osteoporosis of lumbar spine Smoker Tobacco use disorder, mild, abuse Tubular adenoma Vitamin D deficiency Surgical History History of cataract extraction History of fusion of cervical spine History of lumbar discectomy Hx of colonoscopy Family History Father Cancer Mother Diabetes mellitus Sister Brain cancer Social History Housing: House Alcohol intake: former Patient Tobacco Use Status: Current everyday Tobacco user Cigarettes Per Day: 3 Years Smoked: 50 e-Cigarette/Vaping Use: Never Used Current occupational status: retired Cognitive needs: No Hearing needs: No Vision needs: Yes Review of Systems Const Denies weight gain and Denies weight loss ENT Reports no additional complaints, Denies dysphagia and Denies odynophagia Card Reports no additional complaints Resp Reports no additional complaints GI Reports abdominal pain (Occasional), Denies belching, Denies melena, Reports bloating, Denies change in bowel habits, Denies dysphagia, Denies excessive flatus, Denies dyspepsia, Denies heartburn, Denies diarrhea, Denies loose stools, Denies nausea, Denies odynophagia and Denies vomiting Reports no additional complaints Musc Reports no additional complaints Neuro Reports no additional complaints Psych Reports no additional complaints Endo Reports no additional complaints Physical Exam Vital Signs: Last Vital Signs Pulse 65 09/25/22 10:44 BP 123/80 09/25/22 10:44 BMI result Body Mass Index 24.6 Const General: healthy appearing, no acute distress and well developed Nutritional Appearance: well nourished Orientation/consciousness: patient oriented x3 HEENT Head: Yes normal to inspection, Yes normocephalic and Yes atraumatic Face and sinus: Yes normal facial exam Mouth: Normal oral and palatal mucosa present Throat: Yes posterior oropharynx normal, Yes tonsils normal and Yes uvula midline Eyes General: appearance normal, both eyes and all related structures Neck Neck: Yes normal visual inspection, Yes full ROM and Yes trachea midline Thyroid: Thyroid normal Resp Effort & Inspection: normal respiratory effort, able to speak in complete sentences, no tracheal deviation and symmetric chest movement Auscultation: clear to auscultation bilaterally Cardio Rate: regular rate Heart sounds: S1 normal heart sound present and S2 normal heart sound present GI Inspection: Yes normal to inspection and No distended Palpation (GI): Soft to palpation, not firm, nontender and No hepatosplenomegaly present Auscultation: normal bowel sounds General: Yes no CVA tenderness Back/Spine/Pelvis Back: no CVA tenderness Skin General skin exam: elasticity normal, turgor normal and dry skin Neuro General: patient oriented x3 Psych Appearance: grossly normal Mental Status: mental status grossly normal Speech and movement: Normal speech and movement present Affect: normal affect Assessment & Plan Assessment & Plan (1) Chronic idiopathic constipation: Code(s): K59.04 - Chronic idiopathic constipation Plan: Continue Linzess daily. Patient was encouraged to increase fluid intake and activity to promote better bowel motility. (2) IBS (irritable bowel syndrome): Code(s): K58.9 - Irritable bowel syndrome without diarrhea Qualifiers: Irritable bowel syndrome type: with constipation Qualified Code(s): K58.1 - Irritable bowel syndrome with constipation Plan: Discussed with patient will FODMAP diet. List of food recommended as well as list of food to avoid given to patient. (3) Postprandial abdominal bloating: Code(s): R14.0 - Abdominal distension (gaseous) Plan: Postprandial abdominal bloating. We will send patient script for simethicone. Discussed with patient low FODMAP diet as well. I will see patient in 6 weeks, sooner on as needed basis. Patient is agreeable to this plan and verbalizes understanding of instructions. She was given the opportunity to ask questions and all questions answered. Thank you for allowing me to participate in her care Medications: New simethicone 125 mg PO BID-QID PRN 120 caps 3RF abdominal distention K21.9 - Gastro-esophageal reflux disease without esophagitis Refilled linaclotide (Linzess) 290 mcg PO QAM 30 caps 4RF K59.00 - Constipation, unspecified Coding Level of Care Code Est Pt Level 3 (91295) Diagnoses Chronic idiopathic constipation K59.04 IBS (irritable bowel syndrome) K58.1 Irritable bowel syndrome type: with constipation Postprandial abdominal bloating R14.0 Time Spent (min) 40 Comment 20 minutes spent with patient and additional 10 minutes spent reviewing her records
[2022-09-25 10:44] VITALS: BP 123/80; PULSE 65; BMI 24.6
== END 2022-09-25 11:26 | disposition home or self-care (01) ==
PROVIDERS: Visit Provider Nurse Practitioner Family
DX: K59.04 Chronic idiopathic constipation (principal); K58.1 Irritable bowel syndrome with constipation; R14.0 Abdominal distension (gaseous)
CPT/HCPCS: 99213

== ENCOUNTER → 2022-09-25 10:28 | Outpatient (BNVA) | payer MEDICARE, SELFPAY | PROVIDERS: Visit Provider Nurse Practitioner Family | DX: K59.00 Constipation, unspecified (principal); K21.9 Gastro-esophageal reflux disease without esophagitis | CPT/HCPCS: 99212 ==

== ENCOUNTER 2022-11-06 10:04 | Outpatient (AMB) | payer MEDICARE, SELFPAY ==
--- NOTE | 2022-11-06 10:12 | MHC.OFFVIS ---
Intake Vital Signs 11/06/22 10:13 Height 5 ft 1 in Weight 130 lb 1.164 oz BMI 24.6 BP 134/71 Blood Pressure Location Lt brachial Position Sitting Pulse 97 Intake Visit Reasons: 6 week fu Intake Note: Marah presents in the office as a 6 week follow up. CC: No changes since her last visit - no meds seems to be working for her. [employer] Required: No Allergies Penicillins [PENICILLINS] Allergy (Intermediate, Verified 09/25/22 10:43) HIVES influenza virus vaccine, specific [FLU VACCINE] Allergy (Unknown, Verified 09/25/22 10:43) PT DEVELOPED SOB AND LOCAL SWELLING THIS YR metronidazole [From Flagyl] Adverse Reaction (Verified 09/25/22 10:43) severe diarrhea, HPI 6 week fu HPI Details LAST VISIT Chronic idiopathic constipation Continue Linzess daily. Patient was encouraged to increase fluid intake and activity to promote better bowel motility. IBS (irritable bowel syndrome) Discussed with patient will FODMAP diet. List of food recommended as well as list of food to avoid given to patient. Postprandial abdominal bloating Postprandial abdominal bloating. We will send patient script for simethicone. Discussed with patient low FODMAP diet as well. I will see patient in 6 weeks, sooner on as needed basis. Patient is agreeable to this plan and verbalizes understanding of instructions. She was given the opportunity to ask questions and all questions answered. ? TODAY'S VISIT Patient is here today for follow-up. Patient feels very frustrated between the stress that she is going through at home and the way she feels. Patient feels like she tried so many different things and her bowels are still not moving her bowels the way she would like. Patient is taking Linzess 290 mcg daily. Only goes very small amount and only will empty herself completely if she will take Dulcolax in the evening. Patient was taking Metamucil and stop that because she was not feeling like it was helping her. Patient states that she will be fine in the morning after breakfast and after lunch around 02:00 o'clock she will be, bloated. She feels better after having a bowel movement. Patient denies any nausea or vomiting. Uncomfortable feeling of bloating is making her feel frustrated. Patient drinks 3 small bottles of water. Patient states that she is unable to drink more water than that. Patient is usually eating toast with eggs in the morning, she will have salad or sandwich for lunch. Patient eats home cooked a meal in the evening. Patient feels like her symptoms started after the colonoscopy. However patient seen me initially for abdominal pain and discomfort before she went for colonoscopy. Patient was having trouble moving her bowels then. [facility] Medical History Osteoporosis of lumbar spine Elevated blood pressure reading Tobacco use disorder, mild, abuse Mammogram declined Immunization declined Tubular adenoma Smoker History of nephrolithiasis Lumbar disc herniation Hearing loss Osteopenia of multiple sites Vitamin D deficiency Surgical History History of fusion of cervical spine History of lumbar discectomy History of cataract extraction Hx of colonoscopy Family History Father Cancer Mother Diabetes mellitus Sister Brain cancer Social History Housing: House Alcohol intake: former Patient Tobacco Use Status: Current everyday Tobacco user Cigarettes Per Day: 3 Years Smoked: 50 e-Cigarette/Vaping Use: Never Used Current occupational status: retired Cognitive needs: No Hearing needs: No Vision needs: Yes Review of Systems Const Denies weight gain and Denies weight loss ENT Reports no additional complaints, Denies dysphagia and Denies odynophagia Card Reports no additional complaints Resp Reports no additional complaints GI Denies abdominal pain, Denies belching, Denies melena, Reports bloating, Reports constipation, Denies dysphagia, Denies excessive flatus, Denies dyspepsia, Denies heartburn, Denies diarrhea, Denies loose stools, Denies nausea, Denies odynophagia and Denies vomiting Reports no additional complaints Musc Reports no additional complaints Neuro Reports no additional complaints Psych Reports no additional complaints Endo Reports no additional complaints Physical Exam Vital Signs: Last Vital Signs Pulse 97 09/13/23 10:13 BP 134/71 11/06/22 10:13 BMI result Body Mass Index 24.6 Const General: healthy appearing, no acute distress and well developed Nutritional Appearance: well nourished Orientation/consciousness: patient oriented x3 HEENT Head: Yes normal to inspection, Yes normocephalic and Yes atraumatic Face and sinus: Yes normal facial exam Mouth: Normal oral and palatal mucosa present Throat: Yes posterior oropharynx normal, Yes tonsils normal and Yes uvula midline Eyes General: appearance normal, both eyes and all related structures Neck Neck: Yes normal visual inspection, Yes full ROM and Yes trachea midline Thyroid: Thyroid normal Resp Effort & Inspection: normal respiratory effort, able to speak in complete sentences, no tracheal deviation and symmetric chest movement Auscultation: clear to auscultation bilaterally Cardio Rate: regular rate Heart sounds: S1 normal heart sound present and S2 normal heart sound present GI Inspection: Yes normal to inspection and No distended Palpation (GI): Soft to palpation, not firm, nontender and No hepatosplenomegaly present Auscultation: normal bowel sounds General: Yes no CVA tenderness Back/Spine/Pelvis Back: no CVA tenderness Skin General skin exam: elasticity normal, turgor normal and dry skin Neuro General: patient oriented x3 Psych Appearance: grossly normal Mental Status: mental status grossly normal Speech and movement: Normal speech and movement present Assessment & Plan Assessment & Plan (1) Chronic idiopathic constipation: Code(s): K59.04 - Chronic idiopathic constipation Plan: History of chronic constipation. [employer] is not working for her as well as it did in the very beginning. Patient has to use 1 Dulcolax tab in the evening in order to have a bowel movement. If patient uses 2 tablets she will have diarrhea. Will try PA for Motegrity. (2) IBS (irritable bowel syndrome): Code(s): K58.9 - Irritable bowel syndrome without diarrhea Qualifiers: Irritable bowel syndrome type: with constipation Qualified Code(s): K58.1 - Irritable bowel syndrome with constipation Plan: Postprandial abdominal bloating if does not empty her bowels completely. Low FODMAP diet discussed with patient. (3) Postprandial abdominal bloating: Code(s): R14.0 - Abdominal distension (gaseous) Plan: Continue simethicone. Patient is due to go for colonoscopy in November 2023. Patient denies melena, hematochezia, unintentional weight loss or ribbon like stools. Unlikely that patient symptoms are worse due to colonoscopy. Patient was severely constipated and had abdominal discomfort before going for the procedure. Patient also is smoking every day. She has been smoking for a long time. Under lot of stress. Patient could be drinking more water, however patient states that she is unable to drink more than 3 bottles of water a day. I will see patient in 4 months, sooner on as needed basis. Patient is agreeable to this plan and verbalizes understanding of instructions. She was given the opportunity to ask questions and all questions answered. Thank you for allowing me to participate in her care Medications: New prucalopride (Motegrity) 2 mg PO DAILY 90 tabs 2RF K59.04 - Chronic idiopathic constipation Coding Level of Care Code Est Pt Level 3 (64421) Diagnoses Chronic idiopathic constipation K59.04 Irritable bowel syndrome with constipation K58.1 Irritable bowel syndrome type: with constipation Postprandial abdominal bloating R14.0 Time Spent (min) 30 Comment 20 minutes spent with patient and additional 10 minutes spent reviewing her records
[2022-11-06 10:13] VITALS: BP 134/71; PULSE 97; BMI 24.6
== END 2022-11-06 11:08 | disposition home or self-care (01) ==
PROVIDERS: PCP Internal Medicine; Visit Provider Nurse Practitioner Family
DX: K59.04 Chronic idiopathic constipation (principal); K58.1 Irritable bowel syndrome with constipation; R14.0 Abdominal distension (gaseous)
CPT/HCPCS: 99213

== ENCOUNTER → 2022-11-06 10:04 | Outpatient (BNVA) | payer MEDICARE, SELFPAY | PROVIDERS: PCP Internal Medicine; Visit Provider Nurse Practitioner Family | DX: K59.04 Chronic idiopathic constipation (principal); K58.1 Irritable bowel syndrome with constipation; R14.0 Abdominal distension (gaseous) | CPT/HCPCS: 99212 ==

== ENCOUNTER 2023-01-08 07:25 | Outpatient (REF) | payer MEDICARE, SELFPAY ==
[2023-01-08 11:20] LABS: MANUAL DIFF FLAG NO
[2023-01-08 12:01] LABS: Alanine Aminotransferase 13 U/L (0-31); Aspartate Amino Transferase 17 U/L (5-31); Cholesterol 143 mg/dL (<200); HDL Cholesterol 44 mg/dL (>40); LDL Cholesterol Calculated 79 mg/dL (<100); Triglycerides 102 mg/dL (<150)
[2023-01-08 12:05] LABS: Basophils Absolute Auto 0.1 X10*3/uL (0.0-0.2); Basophils Percent Auto 1.3 % (0-2); Eosinophils Absolute Auto 0.3 X10*3/uL (0.0-0.4); Eosinophils Percent Auto 3.9 % (0-4); Hemoglobin 14.1 g/dl (12.0-16.0); Imm Gran Abs Auto 0.01 X10*3/uL (0.00-0.03); Imm Gran Pct Auto 0.1 % (0.0-0.4); Lymphocytes Absolute Auto 2.1 X10*3/uL (1.2-4.9); Lymphocytes Percent Auto 29.5 % (20-40); Mean Corpuscular HGB Conc 32.8 g/dl (31.0-35.0); Mean Corpuscular Hemoglobin 30.9 pg (27.0-33.0); Mean Corpuscular Volume 94.1 fL (80.0-98.0); Mean Platelet Volume 11.3 fL (9.4-12.3); Monocytes Absolute Auto 0.6 X10*3/uL (0.1-1.2); Neutrophils Absolute Auto 3.9 x10*3/uL (2.0-8.3); Neutrophils Percent Auto 56.2 % (45-73); Platelet Count 252 X10*3/uL (160-400); Red Blood Count 4.57 X10*6/uL (4.20-5.50)
[2023-01-08 12:08] LABS: Vitamin D 25-OH Total 59.8 ng/mL (>30)
== END 2023-01-08 07:26 | disposition home or self-care (01) ==
LOC: HO.HMGCLDS 07:25
PROVIDERS: PCP Internal Medicine; Visit Provider Internal Medicine
DX: M81.0 Age-related osteoporosis without current pathological fracture (principal); D36.9 Benign neoplasm, unspecified site; E78.5 Hyperlipidemia, unspecified
CPT/HCPCS: 36415; 80061; 82306; 84450; 84460; 85025

== ENCOUNTER 2023-01-24 10:04 | Outpatient (AMB) | payer MEDICARE, SELFPAY ==
[2023-01-24 10:35] VITALS: BP 138/86; PULSE 90; O2SAT 99; BMI 24.2
--- NOTE | 2023-01-24 10:35 | A.OFFPC_ITS ---
Vital Signs 01/24/23 10:35 Height 5 ft 1 in Weight 128 lb 4 oz BMI 24.2 BP 138/86 Blood Pressure Location Rt brachial Position Sitting Pulse 90 Pulse Source Pulse Oximeter Pulse Oximetry (%) 99 Oxygen Delivery Method Room Air Intake Visit Reasons: f/u lipids Intake Note: Pt is here to follow up for lab results Allergies Penicillins [PENICILLINS] Allergy (Intermediate, Verified 04/14/23 19:55) HIVES influenza virus vaccine, specific [FLU VACCINE] Allergy (Unknown, Verified 04/14/23 19:55) PT DEVELOPED SOB AND LOCAL SWELLING THIS YR metronidazole [From Flagyl] Adverse Reaction (Verified 04/14/23 19:55) severe diarrhea, Medication List - Last Reconciled 01/24/23 by Lizzie Lantigua MD ascorbic acid (vitamin C) mg PO atorvastatin 10 mg PO DAILY cholecalciferol (vitamin D3) 50 mcg PO DAILY linaclotide (Linzess) 290 mcg PO QAM sennosides (Ex-Lax (sennosides)) 15 mg PO DAILY PRN Tobacco use date assessed: 01/24/23 Fall risk assessment: No Falls in past year Last assessed Fall Risk: 01/24/23 Dental Screening Dental Screen Date: 01/24/23 Did you have a dental visit in the last 12 months?: Yes Did you have a dental problem in the last 6 months where you did not have access to dental care?: No Was dental information given to patient?: Patient has dentist HPI f/u lipids HPI Details Seven 7-year-old lady with hyperlipidemia, here today for her follow- up. She has been compliant with taking her atorvastatin 10 mg daily, no side effects reported from medication. She has been trying to follow a low- cholesterol diet and tries to exercise regularly. Recent fasting labs showed lipids within normal limits. [facility] Medical History Osteoporosis of lumbar spine Elevated blood pressure reading Tobacco use disorder, mild, abuse Mammogram declined Immunization declined Tubular adenoma Smoker History of nephrolithiasis Lumbar disc herniation Hearing loss Osteopenia of multiple sites Vitamin D deficiency Surgical History History of fusion of cervical spine History of lumbar discectomy History of cataract extraction Hx of colonoscopy Family History Father Cancer Mother Diabetes mellitus Sister Brain cancer Social History Housing: House Alcohol intake: former Patient Tobacco Use Status: Current everyday Tobacco user Cigarettes Per Day: 3 Years Smoked: 50 e-Cigarette/Vaping Use: Never Used Current occupational status: retired Cognitive needs: No Hearing needs: No Vision needs: Yes Questionnaire Thrive Questionnaire Date Thrive assessed: 07/03/22 CAROLIN-7 AMB Questionnaire CAROLIN-7 Date CAROLIN - 7 assessed: 07/03/22 Source: Developed by Drs. Huy Junior, Marika Maurer, Dion Wright and colleagues, with an educational joselyn from [employer]. Review of Systems Const Denies body aches, Denies fever(s), Denies headache(s) and Denies weakness ENT Denies dizziness, Denies headache(s) and Denies nasal congestion Card Denies chest pain, Denies lightheadedness and Denies dyspnea Resp Denies chest congestion, Denies cough and Denies dyspnea GI Denies abdominal pain, Denies change in bowel habits and Denies heartburn Musc Details: No history of fracture Reports no additional complaints Skin/Breast Denies rash Neuro Denies dizziness, Denies headache(s) and Denies weakness Endo Reports no additional complaints Physical exam (Primary Care) Vital Signs: Last Vital Signs Pulse 90 01/24/23 10:35 BP 138/86 01/24/23 10:35 Pulse Ox 99 01/24/23 10:35 Oxygen Delivery Method Room Air 01/24/23 10:35 BMI result Body Mass Index 24.2 Tobacco/Smoking Status: Tobacco use Status Tobacco use date assessed 01/24/23 01/24/23 10:44 Patient Tobacco Use Status Current everyday Tobacco 01/24/23 10:44 e-Cigarette/Vaping Use Never Used 01/24/23 10:44 Are you ready to quit: No Thrive Assessment: Date of Thrive Assessment Date Thrive assessed 07/03/22 01/24/23 10:44 Const Other: Alert oriented x3, no acute cardiorespiratory distress noted, ambulatory with normal gait Orientation/consciousness: patient oriented x3 Neck Other: Supple with no lymphadenopathy, thyroid gland nonpalpable Resp Auscultation: clear to auscultation bilaterally Cardio Other: S1-S2 present regular rate and rhythm Back/Spine/Pelvis Other: Spine is midline, nontender to palpation, no CVA or back tenderness Neuro General: patient oriented x3, gait normal, tone normal, moves all extremities, Normal light touch and pain sensation, no focal motor deficits and CN's II-XI intact bilaterally Extrem General: Yes full ROM, Yes no joint enlargement and Yes no clubbing, cyanosis or edema Results Reviewed Results Reviewed: ENTERED: 01/08/23 [facility] DR: ORDERED: CBC Auto Diff Test Result Flag Reference WBC 7.0 4.8-10.8 X10*3/uL RBC 4.57 4.20-5.50 X10*6/uL HGB 14.1 12.0-16.0 g/dl HCT 43.0 37.0-47.0 % MCV 94.1 80.0-98.0 fL MCH 30.9 27.0-33.0 pg MCHC 32.8 31.0-35.0 g/dl RDW 13.0 11.0-16.0 % PLT 252 160-400 X10*3/uL MPV 11.3 9.4-12.3 fL Neut Pct Auto 56.2 45-73 % ImGran Pct Auto 0.1 0.0-0.4 % Lymp Pct Auto 29.5 20-40 % Kemper Pct Auto 9.0 2-11 % Eos Pct Auto 3.9 0-4 % Baso Pct Auto 1.3 0-2 % NRBC Pct Auto 0.0 0.0-0.2 /100WBC ANC Neut Abs # 3.9 2.0-8.3 x10*3/uL ImGran Abs Auto 0.01 0.00-0.03 X10*3/uL Lymph Abs Auto 2.1 1.2-4.9 X10*3/uL Kemper Abs Auto 0.6 0.1-1.2 X10*3/uL Eos Abs Auto 0.3 0.0-0.4 X10*3/uL Baso Abs Auto 0.1 0.0-0.2 X10*3/uL NRBC Abs Auto 0.000 0.0-0.012 X10*3/uL SPEC : [id number] FROILAN: 01/08/23 STATUS: COMP REQ : [id number] RECD: 01/08/23 [facility] DR: Lizzie Lantigua MD COMP: 01/08/23 ENTERED: 01/08/23 [facility] DR: ORDERED: AST, ALT, Lipid Panel, Vitamin D 25-OH Test Result Flag Reference AST (GOT) 17 5-31 U/L ALT (GPT) 13 0-31 U/L Triglyceride 102 <150 mg/dL Desirable Triglyceride: less than 150 mg/dL Borderline High Triglyceride 150-199 mg/dL High Triglyceride: 200-499 mg/dL Very High Triglyceride: greater than or equal to 5OO mg/dL Cholesterol 143 <200 mg/dL Desirable Cholesterol: less than 200 mg/dL Borderline High Cholesterol: 200-239 mg/dL High Cholesterol: greater than 239 mg/dL LDL Calculated 79 <100 mg/dL Desirable LDL: less than 100 mg/dL Near Optimal/Above Optimal LDL: 110-129 mg/dL Borderline High LDL: 130-159 mg/dL High LDL: 160-189 mg/dL Very High LDL: greater than or equal to 190 mg/dL HDL 44 >40 mg/dL Desirable HDL: greater than 40 mg/dL Note: This HDL assay may give artificially low results in patients with liver disease. Vit D 25-OH Tot 59.8 >30 ng/mL Health Based Reference Values* < 20 ng/mL Deficient 20-30 ng/mL Insufficient > 30 ng/mL Sufficient Assessment and Plan Assessment & Plan (1) Dyslipidemia: Code(s): E78.5 - Hyperlipidemia, unspecified Plan: Reviewed recent fasting lipid profile with patient with levels within normal limits . Continue with atorvastatin 10 mg daily , in addition to adherence to low-cholesterol diet and regular exercise, at least 30 minutes 3 to 4 times a week. Advised patient to make healthy food choices, eat more fruits, vegetables, whole grains, wild caught fish and low-fat dairy. Limit amount of meat and fried or fatty food products, as well as processed foods and fast foods. Follow-up scheduled with repeat fasting lipid panel in 5 months. (2) Smoker unmotivated to quit: Code(s): F17.200 - Nicotine dependence, unspecified, uncomplicated Plan: Patient strongly advised to stop smoking, as smoking damages blood vessels, degenerative of joints and spine, damage to lungs and heart., predisposes to developing certain cancers like lung, breast, bladder, colon. Recommended to try decreasing cigarette use by 1-2 cigarettes a day. Advised to monitor what triggers are for smoking so that this can be discussed on the next office visit. We can discuss different options to quit smoking when ready. Orders: Orders Alanine Aminotransferase 06/25/23 M81.0 - Age-related osteoporosis without current pathological fracture, E78.5 - Hyperlipidemia, unspecified, F17.200 - Nicotine dependence, unspecified, uncomplicated Aspartate Amino Transferase 06/25/23 M81.0 - Age-related osteoporosis without current pathological fracture, E78.5 - Hyperlipidemia, unspecified, F17.200 - Nicotine dependence, unspecified, uncomplicated Vitamin D 25-OH Total 06/25/23 M81.0 - Age-related osteoporosis without current pathological fracture, E78.5 - Hyperlipidemia, unspecified, F17.200 - Nicotine dependence, unspecified, uncomplicated Lipid Panel 06/25/23 M81.0 - Age-related osteoporosis without current pathological fracture, E78.5 - Hyperlipidemia, unspecified, F17.200 - Nicotine dependence, unspecified, uncomplicated, E89.40 - Asymptomatic postprocedural ovarian failure Basic Metabolic Panel Fasting 06/25/23 M81.0 - Age-related osteoporosis without current pathological fracture, E78.5 - Hyperlipidemia, unspecified, F17.200 - Nicotine dependence, unspecified, uncomplicated Coding Level of Care Code Est Pt Level 3 (88913) Diagnoses Dyslipidemia E78.5 Smoker unmotivated to quit F17.200
== END 2023-01-24 11:46 | disposition home or self-care (01) ==
PROVIDERS: PCP Internal Medicine; Visit Provider Internal Medicine
DX: E78.5 Hyperlipidemia, unspecified (principal); F17.200 Nicotine dependence, unspecified, uncomplicated
CPT/HCPCS: 99213

== ENCOUNTER 2023-03-05 10:06 | Outpatient (AMB) | payer MEDICARE, SELFPAY ==
--- NOTE | 2023-03-05 10:14 | MHC.OFFVIS ---
Intake Vital Signs 03/05/23 10:17 Height 5 ft 1 in Weight 127 lb 13.89 oz BMI 24.2 BP 135/67 Pulse 98 Intake Visit Reasons: follow up Intake Note: Marah presents in the office as a follow up. CC: She states that she is not having any concerns today. Allergies Penicillins [PENICILLINS] Allergy (Intermediate, Verified 03/05/23 10:17) HIVES influenza virus vaccine, specific [FLU VACCINE] Allergy (Unknown, Verified 03/05/23 10:) PT DEVELOPED SOB AND LOCAL SWELLING THIS YR metronidazole [From Flagyl] Adverse Reaction (Verified 03/05/23 10:) severe diarrhea, HPI follow up HPI Details LAST VISIT: Chronic idiopathic constipation History of chronic constipation. [facility] is not working for her as well as it did in the very beginning. Patient has to use 1 Dulcolax tab in the evening in order to have a bowel movement. If patient uses 2 tablets she will have diarrhea. Will try PA for Motegrity. IBS (irritable bowel syndrome) Postprandial abdominal bloating if does not empty her bowels completely. Low FODMAP diet discussed with patient. Postprandial abdominal bloating Continue simethicone. Patient is due to go for colonoscopy in November 2023. Patient denies melena, hematochezia, unintentional weight loss or ribbon like stools. Unlikely that patient symptoms are worse due to colonoscopy. Patient was severely constipated and had abdominal discomfort before going for the procedure. Patient also is smoking every day. She has been smoking for a long time. Under lot of stress. Patient could be drinking more water, however patient states that she is unable to drink more than 3 bottles of water a day. I will see patient in 4 months, sooner on as needed basis. Patient is agreeable to this plan and verbalizes understanding of instructions. She was given the opportunity to ask questions and all questions answered. ? Thank you for allowing me to participate in her care Plan Medications New prucalopride (Motegrity) 2 mg PO DAILY 90 tabs 2RF K59.04 TODAY'S VISIT: Patient is here today for follow-up. Patient reports that she has been feeling better. Has family figure out a system of how to take her medications and what to eat to help her move her bowels better. Patient is taking her Linzess in the morning and Colace at night time. Patient is also eating yogurt and states that she is able to empty. One episode of constipation and severe abdominal cramping since last seen. [employer] better after having a bowel movement. Patient states that she drinks couple bottles of water a day might not be enough. Patient admits to be eating bread, and sandwiches. Reports to be feeling bloated towards the end of the day. Denies dyspepsia, dysphagia or odynophagia. Denies any melena, hematochezia, unintentional weight loss or ribbon like stools. [facility] Medical History Osteoporosis of lumbar spine Elevated blood pressure reading Tobacco use disorder, mild, abuse Mammogram declined Immunization declined Tubular adenoma Smoker History of nephrolithiasis Lumbar disc herniation Hearing loss Osteopenia of multiple sites Vitamin D deficiency Surgical History History of fusion of cervical spine History of lumbar discectomy History of cataract extraction Hx of colonoscopy Family History Father Cancer Mother Diabetes mellitus Sister Brain cancer Social History Housing: House Alcohol intake: former Patient Tobacco Use Status: Current everyday Tobacco user Cigarettes Per Day: 3 Years Smoked: 50 e-Cigarette/Vaping Use: Never Used Current occupational status: retired Cognitive needs: No Hearing needs: No Vision needs: Yes Review of Systems Const Denies weight gain and Denies weight loss ENT Reports no additional complaints, Denies dysphagia and Denies odynophagia Card Reports no additional complaints Resp Reports no additional complaints GI Denies abdominal pain, Denies belching, Denies melena, Denies bloating, Denies change in bowel habits, Reports constipation (Occasional), Denies dysphagia, Denies excessive flatus, Denies dyspepsia, Denies heartburn, Denies diarrhea, Denies loose stools, Denies nausea, Denies odynophagia and Denies vomiting Reports no additional complaints Musc Reports no additional complaints Neuro Reports no additional complaints Psych Reports no additional complaints Endo Reports no additional complaints Physical Exam Vital Signs: Last Vital Signs Pulse 98 03/05/23 10:17 BP 135/67 03/05/23 10:17 BMI result Body Mass Index 24.2 Const General: healthy appearing, no acute distress and well developed Nutritional Appearance: well nourished Orientation/consciousness: patient oriented x3 Resp Effort & Inspection: normal respiratory effort, able to speak in complete sentences, no tracheal deviation and symmetric chest movement Auscultation: clear to auscultation bilaterally Cardio Rate: regular rate GI Inspection: Yes normal to inspection and No distended Palpation (GI): Soft to palpation, not firm, nontender and No hepatosplenomegaly present Auscultation: normal bowel sounds General: Yes no CVA tenderness Back/Spine/Pelvis Back: no CVA tenderness Skin General skin exam: elasticity normal, turgor normal and dry skin Neuro General: patient oriented x3 Psych Appearance: grossly normal Mental Status: mental status grossly normal Assessment & Plan Assessment & Plan (1) Chronic idiopathic constipation: Code(s): K59.04 - Chronic idiopathic constipation (2) IBS (irritable bowel syndrome): Code(s): K58.9 - Irritable bowel syndrome without diarrhea Qualifiers: Irritable bowel syndrome type: without diarrhea Qualified Code(s): K58.9 - Irritable bowel syndrome without diarrhea (3) Postprandial abdominal bloating: Code(s): R14.0 - Abdominal distension (gaseous) Plan Patient will continue her regimen with Linzess. She can increase Colace to 2 capsules every night. Patient was encouraged to increase fluid intake throughout the day. Continue taking yogurt. Patient can also take [id number] probiotic. I will see patient in 6 months, sooner on as needed basis. Patient will be due to go for colonoscopy in November of this year. Patient is agreeable to this plan and verbalizes understanding of instructions. She was given the opportunity to ask questions and all questions answered. Thank you for allowing me to participate in her care Medications: New docusate sodium 200 mg (2 x 100 mg) PO BEDTIME 180 caps 3RF Refilled linaclotide (Linzess) 290 mcg PO QAM 30 caps 4RF K59.00 - Constipation, unspecified Coding Level of Care Code Est Pt Level 3 (45682) Diagnoses Chronic idiopathic constipation K59.04 Irritable bowel syndrome without diarrhea K58.9 Irritable bowel syndrome type: without diarrhea Postprandial abdominal bloating R14.0 Time Spent (min) 25 Comment 15 minutes spent with patient and additional 10 minutes spent reviewing her records
[2023-03-05 10:17] VITALS: BP 135/67; PULSE 98; BMI 24.2
== END 2023-03-05 10:57 | disposition home or self-care (01) ==
PROVIDERS: PCP Internal Medicine; Visit Provider Nurse Practitioner Family
DX: K59.04 Chronic idiopathic constipation (principal); K58.9 Irritable bowel syndrome, unspecified; R14.0 Abdominal distension (gaseous)
CPT/HCPCS: 99213

== ENCOUNTER → 2023-03-05 10:06 | Outpatient (BNVA) | payer MEDICARE, SELFPAY | PROVIDERS: PCP Internal Medicine; Visit Provider Nurse Practitioner Family | DX: K59.04 Chronic idiopathic constipation (principal); K58.9 Irritable bowel syndrome, unspecified; R14.0 Abdominal distension (gaseous) | CPT/HCPCS: 99212 ==

== ENCOUNTER 2023-06-24 08:02 | Outpatient (REF) | payer MEDICARE, SELFPAY ==
[2023-06-24 11:06] LABS: Alanine Aminotransferase 12 U/L (0-31); Anion Gap 14 (12-20); Aspartate Amino Transferase 16 U/L (5-31); Blood Urea Nitrogen 13 mg/dL (9-16); Calcium 9.5 mg/dL (8.4-10.2); Carbon Dioxide 27 mmol/L (22-29); Chloride 103 mmol/L (96-108); Cholesterol 154 mg/dL (<200); Estimated Glomerular Filt Rate > 60; Glucose Fasting 95 mg/dL (60-99); HDL Cholesterol 49 mg/dL (>40); LDL Cholesterol Calculated 86 mg/dL (<100); Potassium 3.9 mmol/L (3.3-5.1); Sodium 140 mmol/L (135-145); Triglycerides 96 mg/dL (<150)
[2023-06-24 11:11] LABS: Vitamin D 25-OH Total 82.6 ng/mL (>30)
== END 2023-06-24 08:03 | disposition home or self-care (01) ==
LOC: HO.HMGCLDS 08:02
PROVIDERS: PCP Internal Medicine; Visit Provider Internal Medicine
DX: M81.0 Age-related osteoporosis without current pathological fracture (principal); E78.5 Hyperlipidemia, unspecified; E89.40 Asymptomatic postprocedural ovarian failure; F17.200 Nicotine dependence, unspecified, uncomplicated
CPT/HCPCS: 36415; 80048; 80061; 82306; 84450; 84460

== ENCOUNTER 2023-06-30 11:11 | Outpatient (AMB) | payer MEDICARE, SELFPAY ==
[2023-06-30 11:21] VITALS: BP 132/80; PULSE 96; O2SAT 99; BMI 24.6
--- NOTE | 2023-06-30 11:21 | A.OFFPC_ITS ---
Vital Signs 06/30/23 11:21 Height 5 ft 1 in Weight 130 lb 4 oz BMI 24.6 BP 132/80 Blood Pressure Location Rt brachial Position Sitting Pulse 96 Pulse Source Pulse Oximeter Pulse Oximetry (%) 99 Oxygen Delivery Method Room Air Intake Visit Reasons: 5 month fu Intake Note: Pt is here for her 5 month follow up. Labs done. Allergies Penicillins [PENICILLINS] Allergy (Intermediate, Verified 10/28/23 03:44) HIVES influenza virus vaccine, specific [FLU VACCINE] Allergy (Unknown, Verified 10/28/23 03:44) PT DEVELOPED SOB AND LOCAL SWELLING THIS YR metronidazole [From Flagyl] Adverse Reaction (Verified 10/28/23 03:44) severe diarrhea, Medication List - Last Reconciled 10/28/23 by Lizzie Lantigua MD atorvastatin 10 mg PO DAILY cholecalciferol (vitamin D3) 50 mcg PO DAILY docusate sodium 200 mg (2 x 100 mg) PO BEDTIME linaclotide (Linzess) 290 mcg PO QAM triamcinolone acetonide 0.025% 1 appl topical DAILY 10 days Tobacco use date assessed: 06/30/23 Fall risk assessment: No Falls in past year Last assessed Fall Risk: 06/30/23 Dental Screening Dental Screen Date: 06/30/23 Did you have a dental visit in the last 12 months?: No Did you have a dental problem in the last 6 months where you did not have access to dental care?: No Was dental information given to patient?: No HPI 5 month fu HPI Details 77-year-old lady with past medical histo ry for hyperlipidemia, osteoporosis lumbar spine, history of tubular adenoma hearing loss, here today for physical exam and follow-up. She has been compliant with taking medications, overdue for her mammogram but does not want to get screening done. She also does not want to get any immunizations, does not believe in them. Bone density scan was done in 2021 which showed presence of osteoporosis in her lumbar spine. Patient however at that time opted not to start any treatment. Agreeable however to repeat another bone density scan to check for any further decline in her bone density. She has history of tubular adenoma polyps removed in previous colonoscopies, last 1 done in 2020, due again for recheck this year. She is currently followed at [facility] and has an appointment already scheduled. Complains of itching and peeling skin in external ears. Continues to smoke cigarettes, with no desire to quit at present. Patient states however that she is cutting back, now down to 3 cigarettes a day. [facility] Medical History (Updated 10/28/23 @ 03:58 by Lizzie Lantigua MD) 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 Elevated blood pressure reading Tobacco use disorder, mild, abuse Mammogram declined Immunization declined Tubular adenoma Smoker History of nephrolithiasis Lumbar disc herniation Hearing loss Osteopenia of multiple sites Vitamin D deficiency Surgical History History of fusion of cervical spine History of lumbar discectomy History of cataract extraction Hx of colonoscopy Family History Father Cancer Mother Diabetes mellitus Sister Brain cancer Social History Housing: House Alcohol intake: former Patient Tobacco Use Status: Current everyday Tobacco user Cigarettes Per Day: 3 Years Smoked: 50 Smoked in Last 30 Days: No e-Cigarette/Vaping Use: Never Used Use of substances other than those prescribed or required for medical reasons: No Advance Directives: No Advance Directives Information Provided: No Do you have a plan to hurt others: No Plan service: No Current occupational status: retired Cognitive needs: No Hearing needs: No Vision needs: Yes Questionnaire PHQ-9 Over the last 2 weeks, how often have you been bothered by any of the following problems? 1. Little interest or pleasure in doing things: not at all 2. Feeling down, depressed, or hopeless: not at all 3. Trouble falling or staying asleep, or sleeping too much: not at all 4. Feeling tired or having little energy: not at all 5. Poor appetite or overeating: not at all 6. Feeling bad about yourself - or that you are a failure or have let yourself or your family down: not at all 7. Trouble concentrating on things, such as reading the newspaper or watching television: not at all 8. Moving or speaking so slowly that other people could have noticed. Or the opposite - being so fidgety or restless that you have been moving around a lot more than usual: not at all 9. Thoughts that you would be better off or of hurting yourself in some way: not at all Total score: 0 Depression Screening Interpretation: Negative Depression Screening Done: Yes 50710 - PHQ-9 Billing: Yes Source: Developed by Drs. Huy Junior, Marika Maurer, Dion Wright and colleagues, with an educational joselyn from [employer]. Thrive Questionnaire Date Thrive assessed: 06/30/23 I am a: Patient What is your living situation today?: I have a steady place to live Within the past 12 months, did the food you bought not last and you didn't have the money to get more?: Never true Within the past 12 months, did you worry whether your food would run out before you got money to buy more?: Never true Do you have trouble paying for medicines?: No Do you have trouble getting transportation to medical appointments?: No Do you have trouble paying your heating and electricity bill?: No Do you have trouble taking care of your child, family member or friend?: No Do you have trouble with day-to-day activities such as bathing, preparing meals, shopping, managing finances, etc.?: No Are you currently unemployed and looking for a job?: No Are you interested in more education?: No THRIVE Score: 0 AUDIT C Alcohol Use Questionnaire (AUDIT-C) 1. How often do you have a drink containing alcohol?: Never 3. How often do you have six or more drinks on one occasion?: Never Total Score: 0 Score Reviewed/Action Taken: Yes CAROLIN-7 AMB Questionnaire CAROLIN-7 Date CAROLIN - 7 assessed: 06/30/23 Feeling nervous, anxious, or on edge: 0 = Not at all Not being able to stop or control worryin = Not at all Worrying too much about different things: 0 = Not at all Trouble relaxin = Not at all Being so restless that it is hard to sit still: 0 = Not at all Becoming easily annoyed or irritable: 0 = Not at all Feeling afraid as if something awful might happen: 0 = Not at all Total CAROLIN-7 score (0-4 normal; 5-9 mild; 10-14 moderate; 15-21 severe): 0 Source: Developed by Marika Kuo, Dion Wright and colleagues, with an educational joselyn from [employer]. CAROLIN-7 Assessment Billing CAROLIN-7 Assessment Tool: CAROLIN-7 Assessment 52719 Review of Systems Const Denies body aches, Denies fever(s), Denies headache(s) and Denies weakness Eyes Denies change in vision ENT Denies dizziness, Denies headache(s), Reports hearing loss and Denies nasal congestion Card Denies chest pain, Denies lightheadedness and Denies dyspnea Resp Denies chest congestion, Denies cough and Denies dyspnea GI Denies abdominal pain, Denies change in bowel habits and Denies heartburn Reports no additional complaints Musc Details: No history of fracture Reports no additional complaints Skin/Breast Denies rash Neuro Denies dizziness, Denies headache(s) and Denies weakness Psych Reports no additional complaints Endo Reports no additional complaints Kodi/Lymph Reports no additional complaints Aller/Immun Reports no additional complaints Physical exam (Primary Care) Vital Signs: Last Vital Signs Pulse 96 06/30/23 11:21 BP 132/80 06/30/23 11:21 Pulse Ox 99 06/30/23 11:21 Oxygen Delivery Method Room Air 06/30/23 11:21 BMI result Body Mass Index 24.6 Tobacco/Smoking Status: Tobacco use Status Tobacco use date assessed 06/30/23 06/30/23 11:25 Patient Tobacco Use Status Current everyday Tobacco 06/30/23 11:25 e-Cigarette/Vaping Use Never Used 06/30/23 11:25 Are you ready to quit: No Tobacco cessation counseling provided: Yes Depression Screening Interpretation: Negative Thrive Assessment: Date of Thrive Assessment Date Thrive assessed 07/03/22 06/30/23 11:25 Const Other: Alert oriented x3, no acute cardiorespiratory distress noted, ambulatory with normal gait Orientation/consciousness: patient oriented x3 HENMT Other: Peeling skin noted in both pinna Head: Yes normocephalic Ears: TM's normal bilaterally, EAC's normal and hearing grossly impaired General nose exam: Normal external nose present Face and sinus: Yes sinuses nontender and Yes face symmetric Mouth: Normal oral and palatal mucosa present and moist mucous membranes Eyes General: appearance normal, both eyes and all related structures Neck Other: Supple with no lymphadenopathy, thyroid gland nonpalpable Chest Chest palpation & inspection: normal inspection of the chest Breast/axilla palpation: normal palpation of the breasts Resp Auscultation: clear to auscultation bilaterally Cardio Other: S1-S2 present regular rate and rhythm GI Inspection: Yes normal to inspection Palpation (GI): Soft to palpation, nontender, no guarding and no masses Auscultation: normal bowel sounds General: Yes no CVA tenderness Back/Spine/Pelvis Other: Spine is midline, nontender to palpation, no CVA or back tenderness Back: no CVA tenderness Skin General skin exam: no rashes or lesions noted Neuro General: patient oriented x3, gait normal, tone normal, moves all extremities, Normal light touch and pain sensation, no focal motor deficits and CN's II-XI intact bilaterally Extrem General: Yes full ROM, Yes no joint enlargement and Yes no clubbing, cyanosis or edema Psych Appearance: grossly normal Mental Status: mental status grossly normal Speech and movement: Normal speech and movement present Affect: normal affect Attitude: cooperative Thought process: Normal thought process present Thought content: Normal thought content present Results Reviewed Results Reviewed: Name: Marah Sanchez Age/Sex: 77/F : 1945 Unit#: [id number] Attend Dr: Lizzie Lantigua MD Re06/24/23 Status: DEP REF Location: [facility] Disch: SPEC : [id number] FROILAN: 06/24/23 STATUS: COMP REQ : [id number] RECD: 06/24/[address]: Lizzie Lantigua MD COMP: 06/24/23 ENTERED: 06/24/23 [facility] DR: ORDERED: Met Prof Fast, AST, ALT, Lipid Panel, Vitamin D 25-OH Test Result Flag Reference Sodium 140 135-145 mmol/L Potassium 3.9 3.3-5.1 mmol/L CL 103 96-108 mmol/L CO2 27 22-29 mmol/L Gap 14 12-20 BUN 13 9-16 mg/dL Creat 0.65 0.5-1.4 mg/dL EGFR > 60 NOTE: For -[place] individuals, multiply the result by 1.210. Chronic Kidney Disease: Estimated GFR < 60 mL/min/1.73m2 Severe Kidney Disease: Estimated GFR < 15 mL/min/1.73m2 FBS 95 60-99 mg/dL CA 9.5 8.4-10.2 mg/dL AST (GOT) 16 5-31 U/L ALT (GPT) 12 0-31 U/L Triglyceride 96 <150 mg/dL Desirable Triglyceride: less than 150 mg/dL Borderline High Triglyceride 150-199 mg/dL High Triglyceride: 200-499 mg/dL Very High Triglyceride: greater than or equal to 5OO mg/dL Cholesterol 154 <200 mg/dL Desirable Cholesterol: less than 200 mg/dL Borderline High Cholesterol: 200-239 mg/dL High Cholesterol: greater than 239 mg/dL LDL Calculated 86 <100 mg/dL Desirable LDL: less than 100 mg/dL Near Optimal/Above Optimal LDL: 110-129 mg/dL Borderline High LDL: 130-159 mg/dL High LDL: 160-189 mg/dL Very High LDL: greater than or equal to 190 mg/dL HDL 49 >40 mg/dL Desirable HDL: greater than 40 mg/dL Note: This HDL assay may give artificially low results in patients with liver disease. Vit D 25-OH Tot 82.6 >30 ng/mL Health Based Reference Values* < 20 ng/mL Deficient 20-30 ng/mL Insufficient > 30 ng/mL Sufficient Assessment and Plan Assessment & Plan (1) Annual visit for general adult medical examination with abnormal findings: Code(s): Z00.01 - Encounter for general adult medical examination with abnormal findings Plan: Fasting lab results discussed with patient, which showed normal fasting glucose, electrolytes, renal function and cholesterol levels. Advised to get regular eye exams, at least every 2 years. Take adequate calcium in diet and vitamin-D 3 at 2000 IU per cap once a day, in addition to weight-bearing exercises to help maintain good muscle tone and weight control. Instructed to do self-breast exam, and recommended to get yearly mammogram, with patient declined.. Patient also does not want to get any vaccinations. She is due for a recheck on her bone density scan which shows ordered, and is due now for repeat colonoscopy, currently being followed at [facility] (2) Dyslipidemia: Code(s): E78.5 - Hyperlipidemia, unspecified Plan: Reviewed recent fasting lipid profile with patient with levels within normal limit . Continue atorvastatin 10 mg daily , in addition to adherence to low-cholesterol diet and regular exercise, at least 30 minutes 3 to 4 times a week. Advised patient to make healthy food choices, eat more fruits, vegetables, whole grains, wild caught fish and low-fat dairy. Limit amount of meat and fried or fatty food products, as well as processed foods and fast foods. Follow-up scheduled with repeat fasting lipid panel in 6 months. (3) Osteoporosis of lumbar spine: Code(s): M81.0 - Age-related osteoporosis without current pathological fracture Plan: Repeat bone density scan ordered, strongly per urge patient to quit smoking. Reminded to do regular weight-bearing exercise, continue taking cholecalciferol 50 mcg daily take adequate calcium from dietary sources (4) Eczema of both external ears: Code(s): H60.543 - Acute eczematoid otitis externa, bilateral Plan: Prescription sent for triamcinolone acetonide cream, 0.025%, to apply sparingly to affected areas on outer ears once a day for no longer than 10 days at a time (5) Immunization declined: Code(s): Z28.21 - Immunization not carried out because of patient refusal (6) Mammogram declined: Code(s): Z53.20 - Procedure and treatment not carried out because of patient's decision for unspecified reasons (7) Smoker unmotivated to quit: Code(s): F17.200 - Nicotine dependence, unspecified, uncomplicated Plan: Patient strongly advised to stop smoking, as smoking damages blood vessels, degenerative of joints and spine, damage to lungs and heart., predisposes to developing certain cancers like lung, breast, bladder, colon. Recommended to try decreasing cigarette use by 1-2 cigarettes a day. Advised to monitor what triggers are for smoking so that this can be discussed on the next office visit. We can discuss different options to quit smoking when ready. (8) Hearing loss: Code(s): H91.90 - Unspecified hearing loss, unspecified ear Orders: Orders Basic Metabolic Panel Fasting 6 Months M81.0 - Age-related osteoporosis without current pathological fracture, E78.5 - Hyperlipidemia, unspecified, Z00.01 - Encounter for general adult medical examination with abnormal findings Vitamin D 25-OH Total 6 Months M81.0 - Age-related osteoporosis without current pathological fracture, E78.5 - Hyperlipidemia, unspecified, Z00.01 - Encounter for general adult medical examination with abnormal findings Aspartate Amino Transferase 6 Months M81.0 - Age-related osteoporosis without current pathological fracture, E78.5 - Hyperlipidemia, unspecified, Z00.01 - Encounter for general adult medical examination with abnormal findings XR DEXA axial skeleton 06/30/23 M81.0 - Age-related osteoporosis without current pathological fracture Lipid Panel 6 Months M81.0 - Age-related osteoporosis without current pathological fracture, E78.5 - Hyperlipidemia, unspecified, Z00.01 - Encounter for general adult medical examination with abnormal findings Alanine Aminotransferase 6 Months M81.0 - Age-related osteoporosis without current pathological fracture, E78.5 - Hyperlipidemia, unspecified, Z00.01 - Encounter for general adult medical examination with abnormal findings Medications: New triamcinolone acetonide 0.025% 1 appl topical DAILY 15 grams 0RF 10 days H60.543 - Acute eczematoid otitis externa, bilateral Refilled atorvastatin 10 mg PO DAILY 90 tabs 3RF E78.5 - Hyperlipidemia, unspecified Coding Level of Care Code Est Pt Prev Care >65y(15479) Diagnoses Annual visit for general adult medical examination with abnormal findings Z00.01 Dyslipidemia E78.5 Osteoporosis of lumbar spine M81.0 Eczema of both external ears H60.543 Immunization declined Z28.21 Mammogram declined Z53.20 Smoker unmotivated to quit F17.200 Hearing loss H91.90 Additional Codes CAROLIN-7 Assessment Billing - CAROLIN-7 Assessment Tool: CAROLIN-7 Assessment 15128 ([id number])
== END 2023-06-30 11:59 | disposition home or self-care (01) ==
PROVIDERS: PCP Internal Medicine; Visit Provider Internal Medicine
DX: E78.5 Hyperlipidemia, unspecified (principal); M81.0 Age-related osteoporosis without current pathological fracture; H60.543 Acute eczematoid otitis externa, bilateral; Z28.21 Immunization not carried out because of patient refusal; Z53.20 Procedure and treatment not carried out because of patient's decision for unspecified reasons; F17.210 Nicotine dependence, cigarettes, uncomplicated
CPT/HCPCS: 99214

== ENCOUNTER 2023-09-03 09:43 | Outpatient (AMB) | payer MEDICARE, SELFPAY ==
--- NOTE | 2023-09-03 09:54 | A.OFFVIS_ITS ---
Vital Signs 09/03/23 09:57 Height 5 ft 1 in Weight 127 lb 13.89 oz BMI 24.2 BP 147/72 H Blood Pressure Location Lt brachial Position Sitting Pulse 85 Intake Visit Reasons: 6 month follow up Intake Note: Marah presents in the office as a 6 month follow. CC: She states that she is not having any concerns at this time. In june she was bit by a tick - was on antibiotics and states that he ended with a yeast infection that was cured with monistat. [employer]er Required: No Allergies Penicillins [PENICILLINS] Allergy (Intermediate, Verified 09/03/23 09:59) HIVES influenza virus vaccine, specific [FLU VACCINE] Allergy (Unknown, Verified 09/03/23 09:59) PT DEVELOPED SOB AND LOCAL SWELLING THIS YR metronidazole [From Flagyl] Adverse Reaction (Verified 09/03/23 09:59) severe diarrhea, HPI HPI 6 month follow up: Details: LAST VISIT: Chronic idiopathic constipation IBS (irritable bowel syndrome) Postprandial abdominal bloating Plan Patient will continue her regimen with Linzess. She can increase Colace to 2 capsules every night. Patient was encouraged to increase fluid intake throughout the day. Continue taking yogurt. Patient can also take [id number] probiotic. I will see patient in 6 months, sooner on as needed basis. Patient will be due to go for colonoscopy in November of this year. Patient is agreeable to this plan and verbalizes understanding of instructions. She was given the opportunity to ask questions and all questions answered. ? Thank you for allowing me to participate in her care Medications New docusate sodium 200 mg (2 x 100 mg) PO BEDTIME 180 caps 3RF Refilled linaclotide (Linzess) 290 mcg PO QAM 30 caps 4RF K59.00 TODAY'S VISIT: Patient is here today for follow-up. Patient reports that she has been feeling little better. Patient is taking Linzess in the morning and 2 stool softeners in the evening. States that she is able to move her bowels every day, however sometimes she will still have trouble moving her bowels and will be bloated at times. Patient noticed that when she is active and moving around her bloating gets better and she is able to have bowel movement quicker. Patient is trying to walk almost every day. Patient denies any melena, hematochezia, unintentional weight loss or ribbon like stools. Colonoscopy in November of 2020 showed 2 tubular adenoma without high-grade dysplasia or carcinoma. 3-5 years follow-up for colorectal screening recommended. Patient will be due to go for colonoscopy soon. Patient denies any abdominal pain or discomfort. Occasional cramping when constipated, however patient is trying to increase fluid intake and activity [facility] Medical History 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 Elevated blood pressure reading Tobacco use disorder, mild, abuse Mammogram declined Immunization declined Tubular adenoma Smoker History of nephrolithiasis Lumbar disc herniation Hearing loss Osteopenia of multiple sites Vitamin D deficiency Surgical History History of fusion of cervical spine History of lumbar discectomy History of cataract extraction Hx of colonoscopy Family History Father Cancer Mother Diabetes mellitus Sister Brain cancer Social History Housing: House Alcohol intake: former Patient Tobacco Use Status: Current everyday Tobacco user Cigarettes Per Day: 3 Years Smoked: 50 e-Cigarette/Vaping Use: Never Used service: No Current occupational status: retired Cognitive needs: No Hearing needs: No Vision needs: Yes Review of Systems Const Denies weight gain and Denies weight loss ENT Reports no additional complaints, Denies dysphagia and Denies odynophagia Card Reports no additional complaints Resp Reports no additional complaints GI Denies abdominal pain, Denies belching, Denies melena, Denies bloating, Denies change in bowel habits, Reports constipation (Occasional), Denies dysphagia, Denies excessive flatus, Denies dyspepsia, Denies heartburn, Denies diarrhea, Denies loose stools, Denies nausea, Denies odynophagia and Denies vomiting Reports no additional complaints Musc Reports no additional complaints Neuro Reports no additional complaints Psych Reports no additional complaints Endo Reports no additional complaints Physical Exam Vital Signs: Last Vital Signs Pulse 85 09/03/23 09:57 BP 147/72 H 09/03/23 09:57 BMI result Body Mass Index 24.2 Const General: healthy appearing, no acute distress and well developed Nutritional Appearance: well nourished Orientation/consciousness: patient oriented x3 Resp Effort & Inspection: normal respiratory effort, able to speak in complete sentences, no tracheal deviation and symmetric chest movement Auscultation: clear to auscultation bilaterally Cardio Rate: regular rate GI Inspection: Yes normal to inspection and No distended Palpation (GI): Soft to palpation, not firm, nontender and No hepatosplenomegaly present Auscultation: normal bowel sounds General: Yes no CVA tenderness Back/Spine/Pelvis Back: no CVA tenderness Skin General skin exam: elasticity normal, turgor normal and dry skin Neuro General: patient oriented x3 Psych Appearance: grossly normal Mental Status: mental status grossly normal Assessment & Plan Assessment & Plan (1) Chronic idiopathic constipation: Code(s): K59.04 - Chronic idiopathic constipation (2) IBS (irritable bowel syndrome): Code(s): K58.9 - Irritable bowel syndrome without diarrhea Qualifiers: Irritable bowel syndrome type: with constipation Qualified Code(s): K58.1 - Irritable bowel syndrome with constipation (3) Postprandial abdominal bloating: Code(s): R14.0 - Abdominal distension (gaseous) Plan Continue Linzess and Colace. Increase fluid intake and activity to promote better bowel motility. Patient will be due to go for colonoscopy soon. Next visit will discuss going for colonoscopy. Patient is agreeable to this plan and verbalizes understanding of instructions. She was given the opportunity to ask questions and all questions answered. Thank you for allowing me to participate in her care Coding Level of Care Code Est Pt Level 3 (47006) Diagnoses Chronic idiopathic constipation K59.04 Irritable bowel syndrome with constipation K58.1 Irritable bowel syndrome type: with constipation Postprandial abdominal bloating R14.0 Time Spent (min) 25 Comment 15 minutes spent with patient and additional 10 minutes spent reviewing her records
[2023-09-03 09:57] VITALS: BP 147/72; PULSE 85; BMI 24.2
== END 2023-09-03 10:30 | disposition home or self-care (01) ==
PROVIDERS: PCP Internal Medicine; Visit Provider Nurse Practitioner Family
DX: K59.04 Chronic idiopathic constipation (principal); K58.1 Irritable bowel syndrome with constipation; R14.0 Abdominal distension (gaseous)
CPT/HCPCS: 99213

== ENCOUNTER → 2023-09-03 09:43 | Outpatient (BNVA) | payer MEDICARE, SELFPAY | PROVIDERS: PCP Internal Medicine; Visit Provider Nurse Practitioner Family | DX: K59.04 Chronic idiopathic constipation (principal); K58.1 Irritable bowel syndrome with constipation; R14.0 Abdominal distension (gaseous) | CPT/HCPCS: 99212 ==

== ENCOUNTER 2023-10-13 10:08 | Outpatient (AMB) | payer MEDICARE, SELFPAY ==
--- NOTE | 2023-10-13 10:51 | MHC.OFFWIV ---
Intake Vital Signs 10/13/23 10:52 Height 5 ft 1 in Weight 127 lb BMI 24.0 BP 100/74 Blood Pressure Location Lt brachial Position Sitting Pulse 95 Pulse Source Pulse Oximeter Temp 98.3 F Temp Source Oral Pulse Oximetry (%) 97 Oxygen Delivery Method Room Air Intake Visit Reasons: EP back pain Intake Note: pt c/o lower back pain. Started last friday: Cleaning her frig Patient Tobacco Use Status: Current everyday Tobacco user Allergies Penicillins [PENICILLINS] Allergy (Intermediate, Verified 10/13/23 11:03) HIVES influenza virus vaccine, specific [FLU VACCINE] Allergy (Unknown, Verified 10/13/23 11:03) PT DEVELOPED SOB AND LOCAL SWELLING THIS YR metronidazole [From Flagyl] Adverse Reaction (Verified 10/13/23 11:03) severe diarrhea, Do you need a note to return to daycare/school/sports/work: No HPI EP back pain HPI Details This note is constructed using voice recognition software. While every effort has been made to ensure accuracy, technical information specialist errors may have been included. The patient is a 77 year old female who presents to the clinic today with bilateral lumbar back pain since cleaning her Fridge on Friday. She initially started with ibuprofen and heat and this did not seem to make the pain better, so she transitioned to Tylenol and ice and this seemed to help a little bit. She notes that the pain seems to be worse when she is trying to get out of bed or going from a sitting to standing. She did have a history of spinal surgery many years ago but this was in the L4 region, which is higher than the area that she is having pain now, and centralized versus her bilateral symptoms. She also reports that this does not feel anything like she had when she had her back surgery. She denies numbness and tingling in her legs. 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 Elevated blood pressure reading Tobacco use disorder, mild, abuse Mammogram declined Immunization declined Tubular adenoma Smoker History of nephrolithiasis Lumbar disc herniation Hearing loss Osteopenia of multiple sites Vitamin D deficiency Surgical History History of fusion of cervical spine History of lumbar discectomy History of cataract extraction Hx of colonoscopy Family History Father Cancer Mother Diabetes mellitus Sister Brain cancer Social History Housing: House Alcohol intake: former Patient Tobacco Use Status: Current everyday Tobacco user Cigarettes Per Day: 3 Years Smoked: 50 e-Cigarette/Vaping Use: Never Used service: No Current occupational status: retired Cognitive needs: No Hearing needs: No Vision needs: Yes Review of Systems Const All systems reviewed & are unremarkable except as noted in HPI and below Physical Exam Vital Signs: Last Vital Signs Temp 98.3 F 10/13/23 10:52 Pulse 95 10/13/23 10:52 BP 100/74 10/13/23 10:52 Pulse Ox 97 10/13/23 10:52 Oxygen Delivery Method Room Air 10/13/23 10:52 BMI result Body Mass Index 24.0 Const General: cooperative, healthy appearing, comfortable, no acute distress and alert Orientation/consciousness: patient oriented x3 Limitations: no limitations Back/Spine/Pelvis Other: Bilateral lumbar tender to palpation with increased muscle bulging. Negative SLR, negative well SLR, normal rotation, flexion, extension. Distal neurovascular exam intact. Skin General skin exam: no rashes or lesions noted, elasticity normal and turgor normal Neuro General: patient oriented x3 Extrem General: Yes normal to inspection, Yes full ROM, Yes capillary refill normal and Yes normal exam except as noted Psych Appearance: grossly normal Mental Status: mental status grossly normal Speech and movement: Normal speech and movement present Affect: normal affect Assessment & Plan Assessment & Plan (1) Low back pain: Code(s): M54.50 - Low back pain, unspecified Qualifiers: Chronicity: acute Back pain laterality: bilateral Sciatica presence: without sciatica Qualified Code(s): M54.50 - Low back pain, unspecified Plan: Discussed symptomatic management, patient declined muscle relaxer, elects prednisone for anti-inflammatory effects. Advised patient to continue with her Tylenol, heat/ice, and muscle rubs if needed. Reviewed side effects associated with medication use. Advised follow up with worsening symptoms or failure to resolve. Plan See above for full details and plan. Medications: New prednisone 40 mg (2 x 20 mg) PO DAILY 5 days 10 tabs 0RF Coding Level of Care Code Est Pt Level 3 (89615) Diagnoses Acute bilateral low back pain without sciatica M54.50 Chronicity: acute Back pain laterality: bilateral Sciatica presence: without sciatica
[2023-10-13 10:52] VITALS: BP 100/74; PULSE 95; TEMP 36.8; O2SAT 97; BMI 24.0
== END 2023-10-13 11:36 | disposition home or self-care (01) ==
PROVIDERS: PCP Internal Medicine; Visit Provider Registered Nurse
DX: M54.50 Low back pain, unspecified (principal)
CPT/HCPCS: 99213

== ENCOUNTER 2023-10-23 08:25 | Emergency (ER) | payer MEDICARE, SELFPAY ==
--- NOTE | ~2023-10-23 | CT_ITS ---
EXAMINATION: CT LUMBAR SPINE WITHOUT CONTRAST CLINICAL INFORMATION: Severe low back pain radiating to the right leg COMPARISON: Lumbar spine x-ray on 05/28/2017, CT scan of abdomen and pelvis on 02/10/2021 TECHNIQUE: Multiple 2 and 1.5 mm axial images of the lumbar spine were obtained from lower T12 to S1 levels without IV contrast enhancement. Bone window and soft tissue window images were reconstructed. Coronal and Sagittal bone window images were also reconstructed from the axial image data. This CT examination was performed using dose optimization techniques as appropriate, variously including the following: *Automated exposure control *Adjustment of mA and/or kV according to patient size (this includes techniques or standardized protocols for targeted exams where dose is matched to indication/reason for exam; i.e. extremities or head) *Use of iterative reconstruction technique DLP; 287 mGy-cm FINDINGS: The visualized lumbar vertebrae are intact with straightening of lumbar lordosis. T12/L1: Bony structures are intact with normal alignment. Intervertebral disc height is normal. Bilateral neuroforamina are patent. Bilateral apophyseal joints are intact with normal alignment. L-1/L-2: Bony structures are intact with normal alignment. Intervertebral disc height is normal. Bilateral neuroforamina are patent. Bilateral apophyseal joints are intact with normal alignment. L2/L3: Bony structures are intact with normal alignment. Intervertebral disc height is normal. Bilateral neuroforamina are patent. Bilateral apophyseal joints are intact with normal alignment. L3/L4: Bony structures are intact with normal alignment. Intervertebral disc height is normal. Mild posterior disc protrusion is seen. There is mild spinal stenosis due to additional impingement by hypertrophic ligamentum flavum. Bilateral neuroforamina are patent. Bilateral apophyseal joints are intact with normal alignment. Bilateral apophyseal joints show loss of joint space, sclerosis, facet hypertrophy and osteophytosis. L4/L5: Bony structures are intact with normal alignment. Intervertebral disc height is severely reduced with vacuum disc phenomenon. Anterior syndesmophytes are present. Bilateral neuroforamina are moderately stenosed due to impingement by syndesmophytes. Bilateral apophyseal joints are intact with normal alignment. Bilateral apophyseal joints show loss of joint space, sclerosis, facet hypertrophy and osteophytosis. L5/S1: Bony structures are intact with anterior L5 on S1 displacement by 0.4 cm, with exposure of intervertebral disc. No pars interarticularis bony defects are seen. Intervertebral disc height is normal. Bilateral neuroforamina are patent. Bilateral apophyseal joints are intact with normal alignment. Bilateral apophyseal joints show loss of joint space, sclerosis, facet hypertrophy and osteophytosis. CT/CT lumbar spine wo IV con IMPRESSION: 1. No acute fracture or dislocation of the lumbar spine. 2. Unchanged Mild spinal stenosis at L3/L4 due to impingement by posterior protruding disc and hypertrophic ligamentum flavum. 3. Unchanged Severe degenerative disc disease at L4/L5 and moderate bilateral neural foramina stenosis. 4. Unchanged Grade 1 anterior L5-S1 anterolisthesis with exposure of intervertebral disc, without spondylolysis. 5. Unchanged Bilateral L3-L4, L4-L5 and L5-S1 facet arthropathy. Electronically signed by: Franny Arias MD 10/23/2023 10:47 AM EDT
--- NOTE | 2023-10-23 08:45 | ED.BACK ---
HPI - Back Pain/Injury General Chief Complaint: Extremity Injury, Lower Stated Complaint: LOW BACK PAIN,?'S SCIATICA PER EMS Time Seen by Provider: 10/23/23 08:28 Source: patient, EMS and old records reviewed Mode of arrival: EMS Limitations: no limitations History of Present Illness ED Provider: Mk HPI Narrative: 77 yo female with PMH of L4-L5 fusion remotely, HLD, not on thinners reports cleaning her fridge on 10/05 felt pain in R lower back radiating to R foot and has had tingling in R toes since 10/05. She has been to urgent care and was put on prednisone but it did nothing other than affect her IBS. No change in the numbness. She has no b/b incontinence no saddle anesthesia. The pain will not go away and now her IBS is affected from the prednisone. No fevers. MD elicited complaint: back injury Pertinent past history: prior back pain Onset (ago): day(s) (17) Timing: constant Severity: severe Similar Symptoms Previously: Yes Quality: sharp and aching Location: lumbar spine Radiation: right upper leg Exacerbating factors: movement, walking and coughing/sneezing Relieving factors: immobilization Context: bending Associated symptoms: numbness Treatments prior to arrival: other medications Work related injury: No Related Data Home Medications ?Medication ?Instructions ?Recorded ?Confirmed cholecalciferol (vitamin D3) 50 50 mcg PO DAILY 07/06/21 12/27/21 mcg (2,000 unit) capsule Previous Rx's ?Medication ?Instructions ?Recorded docusate sodium 100 mg capsule 200 mg (2 x 100 mg) PO BEDTIME 03/05/23 #180 caps atorvastatin 10 mg tablet 10 mg PO DAILY #90 tabs 06/30/23 triamcinolone acetonide 0.025 % 1 appl topical DAILY 10 days #15 06/30/23 topical cream grams linaclotide 290 mcg capsule 290 mcg PO QAM #30 caps 08/19/23 (Linzess) prednisone 20 mg tablet 40 mg (2 x 20 mg) PO DAILY 5 days 10/13/23 #10 tabs lactulose 10 gram/15 mL oral 10 g (15 mL) PO DAILY PRN 10/23/23 solution constipation #237 mL lidocaine 4 % topical patch 1 patch topical DAILY PRN pain #10 10/23/23 ea oxycodone 5 mg tablet 5 mg PO Q6H PRN pain #12 tabs 10/23/23 Allergies Allergy/AdvReac Type Severity Reaction Status Date / Time Penicillins [PENICILLINS] Allergy Intermediate HIVES Verified 10/23/23 08:55 influenza virus vaccine, Allergy Unknown PT Verified 10/23/23 08:55 specific DEVELOPED [FLU VACCINE] SOB AND LOCAL SWELLING THIS YR metronidazole [From Flagyl] AdvReac severe Verified 10/23/23 08:55 diarrhea, Review of Systems Review of Systems: Constitutional : No Weight loss, No Fever, No Chills, ENT/Mouth : No Hearing loss, No Ear Pain, No Nasal Congestion, No Sinus Pain, No Hoarseness, No sore throat, No Rhinorrhea, No Swallowing Difficulty Cardiovascular : No Chest Pain, No SOB Respiratory : No Cough, No Dyspnea Gastrointestinal : No Nausea, No Vomiting, No Diarrhea, No abdominal Pain, No Hematochezia, No Melena Genitourinary : No Dysuria, No Urinary Frequency, No Hematuria, No Urinary Incontinence, Musculoskeletal : positive back pain Skin : No Skin Lesions, No rash Neuro : No Weakness, No Numbness, No Paresthesias, no loss of bowel or bladder incontinence, no saddle anesthesia All other systems reviewed and are negative PMFSH Past Medical History Attestation statement: The following information was validated with the patient. 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 Elevated blood pressure reading Tobacco use disorder, mild, abuse Mammogram declined Immunization declined Tubular adenoma Smoker History of nephrolithiasis Lumbar disc herniation Hearing loss Osteopenia of multiple sites Vitamin D deficiency Surgical History History of fusion of cervical spine History of lumbar discectomy History of cataract extraction Hx of colonoscopy Family History Family History Father Cancer Mother Diabetes mellitus Sister Brain cancer Social History Social History Housing: House Alcohol intake: former Patient Tobacco Use Status: Current everyday Tobacco user Cigarettes Per Day: 3 Years Smoked: 50 Smoked in Last 30 Days: No e-Cigarette/Vaping Use: Never Used Use of substances other than those prescribed or required for medical reasons: No Advance Directives: No Advance Directives Information Provided: Yes Do you have a plan to hurt others: No Plan service: No Current occupational status: retired Cognitive needs: No Hearing needs: No Vision needs: Yes Physical Exam Vital Signs: Vital Signs: Last Vital Signs Temp 98.7 F 10/23/23 08:54 Pulse 106 H 10/23/23 08:54 Resp 18 10/23/23 08:54 BP 138/82 10/23/23 08:54 Pulse Ox 99 10/23/23 08:54 O2 Del Method Room Air 10/23/23 08:54 BMI result Body Mass Index 22.9 Appearance: Alert. Oriented X3. No acute distress. Eyes: Pupils equal, round and reactive to light. ENT: Pharynx normal. Neck: Normal inspection. Neck supple. CVS: Normal heart rate and rhythm. Pulses normal. Respiratory: No respiratory distress. Breath sounds normal. Abdomen: Soft and non-tender. Back: R lower lumbar ttp reproduces pain Skin: Skin warm and dry. Normal skin color. Normal skin turgor. Extremities: No lower extremity edema. Neuro: Oriented X 3. No motor deficit. No sensory deficit. SILT inner thigh 2+ DTR patella tendon, 2+ DP/PT pulses, L5 5/5 bilaterally. no clonus reports she can feel my hand on her toes but they feel tingly Course Course Course Narrative: UA no nitrites or bacteria doubt infection no urinary symptoms Medications Administered Discontinued Medications Generic Name Dose Route Start Last Admin Trade Name Freq PRN Reason Stop Dose Admin Lactulose 10 gm 10/23/23 08:43 10/23/23 09:05 Lactulose 20 Gm/30 Ml Solution PO 10/23/23 08:44 10 gm ONCE ONE Administration Oxycodone HCl 5 mg 10/23/23 08:43 10/23/23 09:05 Oxycodone Hcl Immed Release 5 Mg Tablet PO 10/23/23 08:44 5 mg ONCE ONE Administration Medical Decision Making Medical Decision Making MDM Narrative: 77 yo female with PMH of L4-L5 fusion remotely, HLD, not on thinners here with c/o R sided back pain and tingling in toes x 17 days after cleaning fridge out no fevers, IVDA, no thinners, no abdominal pain no red flags or signs of cauda equina syndrome. She failed prednisone at this time will need CT scan of lumbar spine for fusion eval, compression fracture, suspect radiculopathy she does have tingling to toes but is otherwise intact. Lactulose ordered to prevent constipation which has been issue for her since prednisone (not before so not coinciding with injury). Differential Diagnosis Differential Diagnoses: The differential diagnosis associated with the presentation includes sciatica, lumbar radiculopathy Admission/Observation Consideration of admission/observation: Escalation of care including admission/observation considered sitting upright able to walk symptoms x 17 days not progressive will trial pain control and anticipate DC home with spinal center she has no motor deficits on exam Lab Data Labs: Lab Results 10/23/23 Range/Units 09:26 Urine Color Yellow Urine Appearance Clear Urine pH 6.5 (5.0-9.0) Ur Specific [place] <= 1.005 (1.005-1.025) Urine Protein Negative (Neg-Trace) mg/dL Urine Glucose (UA) Negative (Negative) mg/dL Urine Ketones Negative (Negative) mg/dL Urine Blood Moderate (2+) H (Negative) Urine Nitrite Negative (Negative) Ur Leukocyte Esterase Moderate (2+) H (Negative) Urine RBC 3-5 H (0-2) /HPF Urine WBC 6-10 H (0-5) /HPF Ur Squamous Epith Cells 0-2 (0-2) /HPF Urine Bacteria None Seen (None Seen) Hyaline Casts 0-2 (0-2) /LPF Independent Interpretation I performed an independent interpretation of an: CT Scan (unchanged chronic findings) Radiology Impression Discussion of test interpretation with radiology: I have reviewed the radiologist's reading. Independent Historian Clinical information obtained from an independent historian. History obtained from or confirmed by: EMS External Record Review External record reviewed: Inpatient record Prescription Management I considered prescription management with: Pain Medication Discharge Plan Discharge Clinical Impression: Acute lumbar radiculopathy Patient Disposition: Home, Self-Care Instructions: Lumbar Radiculopathy (ED) Additional Instructions: unchanged CT scan diffuse disease of lumbar spine with nerve impingement on CT scan no acute findings return and seek immediate care for loss of control of bowels or bladder, numbness in private area, loss of motor function please call our spinal center for appointment call your primary care doctor for MRI Prescriptions: New oxycodone 5 mg tablet 5 mg PO Q6H PRN (Reason: pain) Qty: 12 0RF Rx Instructions: Partial Fill upon patient request. lidocaine 4 % adhesive patch,medicated 1 patch topical DAILY PRN (Reason: pain) Qty: 10 0RF Rx Instructions: may leave on for up to 12 hrs lactulose 10 gram/15 mL solution 10 g PO DAILY PRN (Reason: constipation) Qty: 237 0RF No Action Linzess 290 mcg capsule 290 mcg PO QAM Qty: 30 4RF atorvastatin 10 mg tablet 10 mg PO DAILY Qty: 90 3RF triamcinolone acetonide 0.025 % cream 1 appl topical DAILY 10 Days Qty: 15 0RF prednisone 20 mg tablet 40 mg PO DAILY 5 Days Qty: 10 0RF cholecalciferol (vitamin D3) 50 mcg (2,000 unit) capsule 50 mcg PO DAILY docusate sodium 100 mg capsule 200 mg PO BEDTIME Qty: 180 3RF Print Language: Liberian
[2023-10-23 08:54] VITALS: BP 134/90; BP 138/82; PULSE 106; PULSE 110; RESP 18; TEMP 37.1; O2SAT 98; O2SAT 99; BMI 22.9
[2023-10-23] MEDS: Lactulose 20 GM/30 ML SOLUTION 10 GM PO (09:05)
[2023-10-23] MEDS: oxyCODONE HCl Immed Release 5 MG TABLET PO (09:05)
[2023-10-23 09:36] LABS: Appearance Urine Clear; Color Urine Yellow; Glucose Urine UA Negative (Negative); Leukocyte Esterase Urine Moderate (2+) (Negative); Nitrite Urine Negative (Negative); PH 6.5 (5.0-9.0); Specific Gravity - Urine <= 1.005 (1.005-1.025); UMIC TRIGGER UACC YES; Urine Blood Moderate (2+) (Negative); Urine Ketones Negative (Negative); Urine Protein Negative (Neg-Trace)
[2023-10-23 09:49] LABS: Bacteria Urine None Seen (None Seen); Hyaline Casts Urine 0-2 /LPF (0-2); Squamous Epithelial Cell Urine 0-2 /HPF (0-2); UACC Culture Trigger YES
[2023-10-23 11:33] VITALS: BP 110/79; PULSE 110; RESP 18; TEMP 36.9; O2SAT 96
== END 2023-10-23 11:34 | disposition home or self-care (01) ==
PROVIDERS: Emergency Provider Emergency Medicine; PCP Internal Medicine
DX: M54.41 Lumbago with sciatica, right side (principal); M54.16 Radiculopathy, lumbar region; R30.0 Dysuria; R05.9 Cough, unspecified; F17.210 Nicotine dependence, cigarettes, uncomplicated
CPT/HCPCS: 72131; 81001; 87086; 99284

== ENCOUNTER 2023-10-27 00:39 | Emergency (ER) | payer MEDICARE, SELFPAY ==
--- NOTE | ~2023-10-27 | CT_ITS ---
EXAMINATION: CT HEAD WITHOUT CONTRAST CLINICAL INFORMATION: Headache. COMPARISON: None available. TECHNIQUE: Contiguous axial imaging was performed from the skull base to vertex without intravenous administration of contrast. This CT examination was performed using dose optimization techniques as appropriate, variously including the following: *Automated exposure control *Adjustment of mA and/or kV according to patient size (this includes techniques or standardized protocols for targeted exams where dose is matched to indication/reason for exam; i.e. extremities or head) *Use of iterative reconstruction technique DLP: 528 mGy-cm FINDINGS: There is cerebral volume loss with prominence of the lateral and third ventricles. The cortical sulci are widened appropriately. The fourth ventricle and basal cisterns are normally outlined. There is moderate bilateral periventricular and central white matter diminished attenuation. There is no acute territorial defects, hemorrhage or midline shift. The extra-axial spaces are unremarkable. Calvarium/scalp: Intact. Maxillofacial sinuses and mastoids: There is a small right sphenoid sinus opacity. The visualized maxillofacial sinuses and mastoids are otherwise clear. CT/CT head/brain wo IV con IMPRESSION: 1. No acute intracranial pathology. 2. 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 Electronically signed by: tSew Diez MD 10/27/2023 02:16 AM EDT
[2023-10-27 00:45] VITALS: BP 145/85; PULSE 93; RESP 20; TEMP 36.9; O2SAT 98; BMI 21.4
--- NOTE | 2023-10-27 01:10 | ED.HA ---
HPI - Headache General Chief Complaint: Headache Stated Complaint: Head Pain Time Seen by Provider: 10/27/23 01:10 Source: patient and family Mode of arrival: ambulatory Limitations: no limitations History of Present Illness ED Provider: eris GAMEZ Narrative: Patient is 78 years old with history of L4-L5 fusion in the past was seen here on 10/22 for low back pain which happened after she was cleaning her Fridge on 10/05 CT scan of the lumbar spine showed moderate lumbar canal stenosis L3-L4. Patient was doing better with the pain manage medications since yesterday complaining of pain in the neck area with slight spasm and just prior to arrival complaining of increased pain with sharp shooting in nature gets worse on movements no fever no chills no nausea no vomit patient has had MRI done yesterday reports not available. Related Data Home Medications ?Medication ?Instructions ?Recorded ?Confirmed cholecalciferol (vitamin D3) 50 50 mcg PO DAILY 07/06/21 12/27/21 mcg (2,000 unit) capsule Previous Rx's ?Medication ?Instructions ?Recorded docusate sodium 100 mg capsule 200 mg (2 x 100 mg) PO BEDTIME 03/05/23 #180 caps atorvastatin 10 mg tablet 10 mg PO DAILY #90 tabs 06/30/23 triamcinolone acetonide 0.025 % 1 appl topical DAILY 10 days #15 06/30/23 topical cream grams linaclotide 290 mcg capsule 290 mcg PO QAM #30 caps 08/19/23 (Linzess) prednisone 20 mg tablet 40 mg (2 x 20 mg) PO DAILY 5 days 10/13/23 #10 tabs lactulose 10 gram/15 mL oral 10 g (15 mL) PO DAILY PRN 10/23/23 solution constipation #237 mL lidocaine 4 % topical patch 1 patch topical DAILY PRN pain #10 10/23/23 ea oxycodone 5 mg tablet 5 mg PO Q6H PRN pain #10 tabs 10/24/23 cyclobenzaprine 10 mg tablet 5 mg (1/2 x 10 mg) PO Q8H #14 tabs 10/27/23 cyclobenzaprine 10 mg tablet 10 mg PO Q8H #20 tabs 10/27/23 Allergies Allergy/AdvReac Type Severity Reaction Status Date / Time Penicillins [PENICILLINS] Allergy Intermediate HIVES Verified 10/27/23 00:45 influenza virus vaccine, Allergy Unknown PT Verified 10/23/23 08:55 specific DEVELOPED [FLU VACCINE] SOB AND LOCAL SWELLING THIS YR metronidazole [From Flagyl] AdvReac severe Verified 10/23/23 08:55 diarrhea, Review of Systems Review of Systems: Yes all other systems are reviewed and are negative [facility] Past Medical History Medical History Lumbar back pain with radiculopathy affecting lower extremity 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 Elevated blood pressure reading Tobacco use disorder, mild, abuse Mammogram declined Immunization declined Tubular adenoma Smoker History of nephrolithiasis Lumbar disc herniation Hearing loss Osteopenia of multiple sites Vitamin D deficiency Surgical History History of fusion of cervical spine History of lumbar discectomy History of cataract extraction Hx of colonoscopy Family History Family History Father Cancer Mother Diabetes mellitus Sister Brain cancer Social History Social History Housing: House Alcohol intake: former Patient Tobacco Use Status: Current everyday Tobacco user Cigarettes Per Day: 3 Years Smoked: 50 Smoked in Last 30 Days: No e-Cigarette/Vaping Use: Never Used Use of substances other than those prescribed or required for medical reasons: No Advance Directives: No Advance Directives Information Provided: No Do you have a plan to hurt others: No Plan service: No Current occupational status: retired Cognitive needs: No Hearing needs: No Vision needs: Yes Physical Exam Vital Signs: Vital Signs: Last Vital Signs Temp 97.8 F 10/27/23 04:08 Pulse 91 10/27/23 04:08 Resp 16 10/27/23 04:08 BP 138/70 10/27/23 04:08 Pulse Ox 92 10/27/23 04:08 O2 Del Method Room Air 10/27/23 04:08 BMI result Body Mass Index 21.4 Appearance: Alert. Oriented X3. No acute distress. Eyes: PERRLA, No Nystagmus ENT: Pharynx normal. Oral Mucosa moist Neck: Normal inspection. Neck with spasm Brudzinski negative CVS: Normal heart rate and rhythm. Pulses normal. Respiratory: No respiratory distress. Equal air entry bilateral, no wheezing/rales/rhonchi Abdomen: Soft and nontender. Bowel sounds are present, no mass palpable, no CVA tenderness Skin: Skin warm and dry. Normal skin color. Normal skin turgor. Extremities: No lower extremity edema. No calf tenderness Neuro: Oriented X 3. No motor deficit. No sensory deficit.No cerebellar signs , cranial nerves II-XII intact Medications Administered Discontinued Medications Generic Name Dose Route Start Last Admin Trade Name Allie PRN Reason Stop Dose Admin Dexamethasone Sodium Phosphate 10 mg 10/27/23 02:46 10/27/23 03:05 Dexamethasone Sod Phosphate 10 Mg/Ml Vial IVPUSH 10/27/23 02:47 10 mg ONCE ONE Administration Lorazepam 1 mg 10/27/23 02:46 10/27/23 03:05 Lorazepam 2 Mg/Ml Vial IVPUSH 10/27/23 02:47 1 mg ONCE ONE Administration Morphine Sulfate 4 mg 10/27/23 01:19 10/27/23 01:43 Morphine Sulfate 4 Mg/Ml Cartridge IVPUSH 10/27/23 01:20 4 mg ONCE ONE Administration Protocol Ondansetron HCl 4 mg 10/27/23 01:19 10/27/23 01:42 Ondansetron Hcl 4 Mg/2 Ml Vial IVPUSH 10/27/23 01:20 4 mg ONCE ONE Administration Medical Decision Making Medical Decision Making [facility] Narrative: Patient with bilateral sternocleidomastoid muscle spasm says that in the night of 10/24 patient has slept holding her hands on the walker because of the back pain and when she got up she noticed slight discomfort which got worse during the day no fever no midline tenderness Brudzinski sign negative clinically patient does not have meningitis or significant intracranial or intraspinal pathology as the cause for the neck pain CT scan of the head is negative patient is improved after Ativan and pain medication Differential Diagnosis Differential Diagnoses: The differential diagnosis associated with the presentation includes Torticollis/meningitis/cervical fracture Admission/Observation Consideration of admission/observation: Escalation of care including admission/observation considered Lab Data [facility] Lab Attestation statement: I reviewed the patient's lab results. 10/27/23 01:37 10/27/23 01:58 Labs: Lab Results 10/27/23 10/27/23 Range/Units 01:37 01:58 WBC 14.9 H (4.8-10.8) X10*3/uL RBC 4.17 L (4.20-5.50) X10*6/uL Hgb 13.2 (12.0-16.0) g/dl Hct 37.8 (37.0-47.0) % MCV 90.6 (80.0-98.0) fL MCH 31.7 (27.0-33.0) pg MCHC 34.9 (31.0-35.0) g/dl RDW 13.0 (11.0-16.0) % Plt Count 270 (160-400) X10*3/uL MPV 10.3 (9.4-12.3) fL Immature Gran % (Auto) 0.3 (0.0-0.4) % Neut % (Auto) 75.8 H (45-73) % Lymph % (Auto) 13.0 L (20-40) % [place] % (Auto) 9.4 (2-11) % Eos % (Auto) 1.0 (0-4) % Baso % (Auto) 0.5 (0-2) % Lymph # (Auto) 1.9 (1.2-4.9) X10*3/uL [place] # (Auto) 1.4 H (0.1-1.2) X10*3/uL Eos # (Auto) 0.2 (0.0-0.4) X10*3/uL Baso # (Auto) 0.1 (0.0-0.2) X10*3/uL Abs Immat Gran (auto) 0.04 H (0.00-0.03) X10*3/uL Absolute Neuts (auto) 11.3 H (2.0-8.3) x10*3/uL Absolute Nucleated RBC 0.000 (0.0-0.012) X10*3/uL Nucleated RBC % (auto) 0.0 (0.0-0.2) /100WBC Sodium 139 (135-145) mmol/L Potassium 3.7 (3.3-5.1) mmol/L Chloride 103 (96-108) mmol/L Carbon Dioxide 25 (22-29) mmol/L Anion Gap 15 (12-20) BUN 12 (9-16) mg/dL Creatinine 0.66 (0.5-1.4) mg/dL Estim Creat Clear Calc 58.1 Estimated GFR > 60 Random Glucose 112 (60-115) mg/dL Calcium 9.5 (8.4-10.2) mg/dL Total Bilirubin 0.7 (0.0-1.0) mg/dL AST 21 (5-31) U/L ALT 21 (0-31) U/L Alkaline Phosphatase 70 (39-117) U/L Troponin I High Sens 2.7 (<3.5-17.0) ng/L C-Reactive Protein 7.89 H (< or = 0.50) mg/dL Total Protein 6.8 (6.5-8.0) g/dL Albumin 3.7 (3.5-5.0) g/dL Independent Interpretation I performed an independent interpretation of an: CT Scan Radiology Impression Discussion of test interpretation with radiology: I have reviewed the radiologist's reading. Radiologist Impression: [place] [address] CT Scan Report Signed Patient: Marah Sanchez MR#: [id number] : 1945 Acct:[id number] Age/Sex: 78 / F ADM Date: 10/27/23 Loc: HO.ED Attending Dr: Ordering Physician: Torin Heart MD Date of Service: 10/27/23 Procedure(s): CT head/brain wo IV con Accession Number(s): [id number] cc: Lizzie Lantigua MD; Torin Heart MD~ EXAMINATION: CT HEAD WITHOUT CONTRAST CLINICAL INFORMATION: Headache. COMPARISON: None available. TECHNIQUE: Contiguous axial imaging was performed from the skull base to vertex without intravenous administration of contrast. This CT examination was performed using dose optimization techniques as appropriate, variously including the following: *Automated exposure control *Adjustment of mA and/or kV according to patient size (this includes techniques or standardized protocols for targeted exams where dose is matched to indication/reason for exam; i.e. extremities or head) *Use of iterative reconstruction technique DLP: 528 mGy-cm FINDINGS: There is cerebral volume loss with prominence of the lateral and third ventricles. The cortical sulci are widened appropriately. The fourth ventricle and basal cisterns are normally outlined. There is moderate bilateral periventricular and central white matter diminished attenuation. There is no acute territorial defects, hemorrhage or midline shift. The extra-axial spaces are unremarkable. Calvarium/scalp: Intact. Maxillofacial sinuses and mastoids: There is a small right sphenoid sinus opacity. The visualized maxillofacial sinuses and mastoids are otherwise clear. CT/CT head/brain wo IV con IMPRESSION: 1. No acute intracranial pathology. 2. 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 Electronically signed by: Stew Diez MD 10/27/2023 02:16 AM EDT RP Discharge Plan Discharge Clinical Impression: Muscle spasms of neck Patient Disposition: Home, Self-Care Instructions: Spasmodic Torticollis (ED) Additional Instructions: No pain in the neck is likely from muscle spasm at this time there is no source of infection to cause the pain Continue pain medication will add muscle relaxant Take ibuprofen for pain along with your oxycodone Follow up with your PCP Prescriptions: New cyclobenzaprine 10 mg tablet 10 mg PO Q8H Qty: 20 0RF cyclobenzaprine 10 mg tablet 5 mg PO Q8H Qty: 14 0RF No Action Linzess 290 mcg capsule 290 mcg PO QAM Qty: 30 4RF oxycodone 5 mg tablet 5 mg PO Q6H PRN (Reason: pain) Qty: 10 0RF Rx Instructions: Partial Fill upon patient request. lidocaine 4 % adhesive patch,medicated 1 patch topical DAILY PRN (Reason: pain) Qty: 10 0RF Rx Instructions: may leave on for up to 12 hrs lactulose 10 gram/15 mL solution 10 g PO DAILY PRN (Reason: constipation) Qty: 237 0RF atorvastatin 10 mg tablet 10 mg PO DAILY Qty: 90 3RF triamcinolone acetonide 0.025 % cream 1 appl topical DAILY 10 Days Qty: 15 0RF prednisone 20 mg tablet 40 mg PO DAILY 5 Days Qty: 10 0RF cholecalciferol (vitamin D3) 50 mcg (2,000 unit) capsule 50 mcg PO DAILY docusate sodium 100 mg capsule 200 mg PO BEDTIME Qty: 180 3RF Print Language: Serbian
[2023-10-27 01:40] LABS: MANUAL DIFF FLAG NO
[2023-10-27 01:41] LABS: Basophils Absolute Auto 0.1 X10*3/uL (0.0-0.2); Basophils Percent Auto 0.5 % (0-2); Eosinophils Absolute Auto 0.2 X10*3/uL (0.0-0.4); Hematocrit 37.8 % (37.0-47.0); Hemoglobin 13.2 g/dl (12.0-16.0); Imm Gran Abs Auto 0.04 X10*3/uL (0.00-0.03); Imm Gran Pct Auto 0.3 % (0.0-0.4); Lymphocytes Absolute Auto 1.9 X10*3/uL (1.2-4.9); Mean Corpuscular HGB Conc 34.9 g/dl (31.0-35.0); Mean Corpuscular Hemoglobin 31.7 pg (27.0-33.0); Mean Corpuscular Volume 90.6 fL (80.0-98.0); Mean Platelet Volume 10.3 fL (9.4-12.3); Monocytes Absolute Auto 1.4 X10*3/uL (0.1-1.2); Monocytes Percent Auto 9.4 % (2-11); Neutrophils Absolute Auto 11.3 x10*3/uL (2.0-8.3); Neutrophils Percent Auto 75.8 % (45-73); Platelet Count 270 X10*3/uL (160-400); Red Blood Count 4.17 X10*6/uL (4.20-5.50); White Blood Count 14.9 X10*3/uL (4.8-10.8)
[2023-10-27] MEDS: ondansetron HCL 4 MG/2 ML VIAL IVPUSH (01:42)
[2023-10-27 01:43] VITALS: RESP 16
[2023-10-27] MEDS: Morphine Sulfate 4 MG/ML CARTRIDGE IVPUSH (01:43)
[2023-10-27 02:55] LABS: Alanine Aminotransferase 21 U/L (0-31); Albumin Level 3.7 g/dL (3.5-5.0); Alkaline Phosphatase 70 U/L (39-117); Anion Gap 15 (12-20); Aspartate Amino Transferase 21 U/L (5-31); Bilirubin Total 0.7 mg/dL (0.0-1.0); Blood Urea Nitrogen 12 mg/dL (9-16); C Reactive Protein 7.89 mg/dL (< or = 0.50); Calcium 9.5 mg/dL (8.4-10.2); Carbon Dioxide 25 mmol/L (22-29); Chloride 103 mmol/L (96-108); Creatinine Clr Calc Pharmacy 58.1; Estimated Glomerular Filt Rate > 60; Glucose Random 112 mg/dL (60-115); Potassium 3.7 mmol/L (3.3-5.1); Sodium 139 mmol/L (135-145); Total Protein 6.8 g/dL (6.5-8.0)
[2023-10-27 03:03] LABS: Troponin-I High Sensitivity 2.7 ng/L (<3.5-17.0)
[2023-10-27] MEDS: dexAMETHasone sod phosphate 10 MG/ML VIAL IVPUSH (03:05)
[2023-10-27] MEDS: LORazepam 2 MG/ML VIAL 1 MG IVPUSH (03:05)
[2023-10-27 04:08] VITALS: BP 138/70; PULSE 91; RESP 16; TEMP 36.6; O2SAT 92
[2023-10-27 06:36] VITALS: BP 143/76; PULSE 86; RESP 16; TEMP 36.6; O2SAT 96
== END 2023-10-27 06:36 | disposition home or self-care (01) ==
PROVIDERS: Emergency Provider Internal Medicine; PCP Internal Medicine
DX: M62.830 Muscle spasm of back (principal); M54.2 Cervicalgia; R51.9 Headache, unspecified
CPT/HCPCS: 36415; 70450; 80053; 84484; 85025; 86140; 96374; 96375; 99284; J1100; J2060; J2270; J2405

== ENCOUNTER 2023-10-28 11:40 | Outpatient (AMB) | payer MEDICARE, SELFPAY ==
--- NOTE | 2023-10-28 11:48 | MHC.PC.OV ---
Vital Signs 10/28/23 12:02 Height 5 ft 3 in Weight 125 lb 2 oz BMI 22.2 BP 126/82 Blood Pressure Location Rt brachial Position Sitting Pulse 71 Pulse Source Pulse Oximeter Pulse Oximetry (%) 98 Oxygen Delivery Method Room Air Intake Visit Reasons: request MRI Intake Note: Pt is here today for a referral, pt mentioned she was just in the ED and here for a follow up. Allergies Penicillins [PENICILLINS] Allergy (Intermediate, Verified 10/28/23 13:34) HIVES influenza virus vaccine, specific [FLU VACCINE] Allergy (Unknown, Verified 10/28/23 13:34) PT DEVELOPED SOB AND LOCAL SWELLING THIS YR metronidazole [From Flagyl] Adverse Reaction (Verified 10/28/23 13:34) severe diarrhea, Medication List - Last Reconciled 10/28/23 by Lizzie Lantigua MD atorvastatin 10 mg PO DAILY cholecalciferol (vitamin D3) 50 mcg PO DAILY cyclobenzaprine 10 mg PO BEDTIME docusate sodium 200 mg (2 x 100 mg) PO BEDTIME lactulose mL PO lidocaine 4% 1 patch topical BID PRN linaclotide (Linzess) 290 mcg PO QAM Tobacco use date assessed: 10/28/23 Fall risk assessment: No Falls in past year Last assessed Fall Risk: 10/28/23 Dental Screening Dental Screen Date: 10/28/23 Did you have a dental visit in the last 12 months?: No Did you have a dental problem in the last 6 months where you did not have access to dental care?: No Was dental information given to patient?: Patient declined HPI request MRI HPI Details 78 years old with history of L4-L5 fusion in the past, here today for follow-up after recent ER visit. She was seen on 10/22 for low back pain which happened after she was cleaning her Fridge on 10/05. CT scan of the lumbar spine showed moderate lumbar canal stenosis L3-L4. Patient was doing better with the taking cyclobenzaprine but had to stop taking oxycodone as it was making her very constipated, since yesterday, but now started complaining again of complaining of pain in the neck area with slight spasm just prior to arrival complaining of increased pain with sharp shooting in nature. Patient states it gets gets worse on movement, but no fever, no chills , numbness and tingling, no weakness, nausea reported.She had MRI of lumbar spine done 2 days ago but reports not available. She states that pain is starting to improve but still present but lesser in intensity as compared to several days ago. Denies any accompanying numbness weakness, no urinary or stool incontinence reported. 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 Elevated blood pressure reading Tobacco use disorder, mild, abuse Mammogram declined Immunization declined Tubular adenoma Smoker History of nephrolithiasis Lumbar disc herniation Hearing loss Osteopenia of multiple sites Vitamin D deficiency Surgical History History of fusion of cervical spine History of lumbar discectomy History of cataract extraction Hx of colonoscopy Family History Father Cancer Mother Diabetes mellitus Sister Brain cancer Social History Housing: House Alcohol intake: former Patient Tobacco Use Status: Current everyday Tobacco user Cigarettes Per Day: 3 Years Smoked: 50 e-Cigarette/Vaping Use: Never Used service: No Current occupational status: retired Cognitive needs: No Hearing needs: No Vision needs: Yes Questionnaire Thrive Questionnaire Date Thrive assessed: 06/30/23 AUDIT C Alcohol Use Questionnaire (AUDIT-C) 1. How often do you have a drink containing alcohol?: Never 3. How often do you have six or more drinks on one occasion?: Never Total Score: 0 Score Reviewed/Action Taken: Yes CAROLIN-7 AMB Questionnaire CAROLIN-7 Date CAROLIN - 7 assessed: 06/30/23 Source: Developed by Drs. Huy Junior, Marika Maurer, Dion Wright and colleagues, with an educational joselyn from [employer]. Review of Systems Const All systems reviewed & are unremarkable except as noted in HPI and below Physical exam (Primary Care) Vital Signs: Last Vital Signs Pulse 71 10/28/23 12:02 BP 126/82 10/28/23 12:02 Pulse Ox 98 10/28/23 12:02 Oxygen Delivery Method Room Air 10/28/23 12:02 BMI result Body Mass Index 22.2 Tobacco/Smoking Status: Tobacco use Status Tobacco use date assessed 10/28/23 10/28/23 12:09 Patient Tobacco Use Status Current everyday Tobacco 10/28/23 11:48 e-Cigarette/Vaping Use Never Used 10/28/23 11:48 Thrive Assessment: Date of Thrive Assessment Date Thrive assessed 06/30/23 10/28/23 11:48 Const Other: Alert oriented x3, no acute cardiorespiratory distress noted, ambulatory with normal gait HENMT Head: Yes normocephalic Ears: hearing grossly impaired General nose exam: Normal external nose present Face and sinus: Yes face symmetric Mouth: Normal oral and palatal mucosa present and moist mucous membranes Eyes General: appearance normal, both eyes and all related structures Neck Other: Supple with no lymphadenopathy, thyroid gland nonpalpable Resp Auscultation: clear to auscultation bilaterally Cardio Other: S1-S2 present regular rate and rhythm GI Inspection: Yes normal to inspection Palpation (GI): Soft to palpation, nontender, no guarding and no masses Auscultation: normal bowel sounds Back/Spine/Pelvis Other: Spine is midline, nontender to palpation, no CVA or back tenderness Thoracic/Lumbar Spine: straight leg raise negative bilaterally and thoraco-lumbar spasm Skin General skin exam: no rashes or lesions noted Neuro General: gait normal, tone normal, moves all extremities, Normal light touch and pain sensation, no focal motor deficits and CN's II-XI intact bilaterally Extrem General: Yes full ROM, Yes no joint enlargement and Yes no clubbing, cyanosis or edema Assessment and Plan Assessment & Plan (1) History of lumbar discectomy: Comment: 2002 Code(s): Z98.890 - Other specified postprocedural states (2) Acute lumbar radiculopathy: Code(s): M54.16 - Radiculopathy, lumbar region Plan MRI of lumbar spine already done, awaiting report, meantime continue taking cyclobenzaprine 10 mg 1 tablet at bedtime, try applying Salonpas patch to affected area in lower back, may sleep with it, and replace patch again in the morning. Take Tylenol and ibuprofen as needed every 8 hours. Referred to neuro spine surgery for further evaluation management Orders: Referrals Neuro Spine Referral M54.16 - Radiculopathy, lumbar region, Z98.890 - Other specified postprocedural states Coding Level of Care Code Est Pt Level 4 (08978) Complex EM visit Add On G2211 Diagnoses History of lumbar discectomy Z98.890 Acute lumbar radiculopathy M54.16
[2023-10-28 12:02] VITALS: BP 126/82; PULSE 71; O2SAT 98; BMI 22.2
== END 2023-10-28 13:46 | disposition home or self-care (01) ==
PROVIDERS: PCP Internal Medicine; Visit Provider Internal Medicine
DX: Z98.890 Other specified postprocedural states (principal); M54.16 Radiculopathy, lumbar region
CPT/HCPCS: 99214; G2211

== ENCOUNTER 2023-11-06 13:35 | Outpatient (AMB) | payer MEDICARE, SELFPAY ==
--- NOTE | 2023-11-06 13:45 | A.SPINEOV_ITS ---
Intake Visit Reasons: LBP Intake Note: Ms. Sanchez is here today c/o low back pain. Perioperative Nurse Required: No Allergies Penicillins [PENICILLINS] Allergy (Intermediate, Verified 10/28/23 13:34) HIVES influenza virus vaccine, specific [FLU VACCINE] Allergy (Unknown, Verified 10/28/23 13:34) PT DEVELOPED SOB AND LOCAL SWELLING THIS YR metronidazole [From Flagyl] Adverse Reaction (Verified 10/28/23 13:34) severe diarrhea, Assessment & Plan Assessment & Plan (1) Back pain: Code(s): M54.9 - Dorsalgia, unspecified Category: Medical Plan Dear Dr Lantigua, Thank you for referring Mrs Sanchez to our office today. She is a 78 year old female with a history of a previous right L4-5, right L5-S1 microdiskectomy in 2002. She recovered from that without incident, and was doing well until about 5 or 6 weeks ago when she was bending over to clean a refrigerator and felt s omething pull on the right side of her low back. She has occasional feeling like her right leg will give out and maybe occasionally some feelings of pain down her leg but primarily it is the right-sided low back pain that is the issue. She has some residual dysesthesias from her original surgery that give her feeling like she has a sock on her foot that is too tight. That remains unchanged. She has no new weakness other than the feeling of her leg may give out underneath her. She was in the emergency room 3 times. She is trialed on steroids but they did not agree with her stomach. She was on oxycodone. Dealing thing that seems to help his ibuprofen, muscle relaxers and lidocaine patches over the area on the back. If she presses her hand to the area of the low back, she can make the pain go away. She will do this when she is walking to help increase the distance she can go. She is here today to see us with an MRI showing degenerative changes. PMH: She tells me she is otherwise healthy outside of some high cholesterol Social hx: Quit smoking few months ago does not drink use any recreational drugs Medications: Lipitor, vitamin-D, cyclobenzaprine, lidocaine patches and Linzess Allergies: Penicillin Physical exam: Awake alert oriented no acute distress, she is tenderness over the right PSIS, strength and reflexes intact in the lower extremities. Imaging review: She is a lumbar MRI done at the [facility], this shows postsurgical changes at L4-5 and L5-S1. I do not see any evidence of significant nerve compression at these levels. There is moderate stenosis at L3-4. There are degenerative changes of the discs at L4-5 and L5-S1. Impression: 78-year-old female presents with acute onset low back pain when she was bending forward to clean her refrigerator. The pain has been rather intense over the last 4-6 weeks responding only to muscle relaxers, lidocaine patches and if she holds her hand over the area and press down she can make the pain get better. There is some intermittent radicular type sensations which can go down her leg but it has really not the main prominent feature. I reviewed her MRI and this shows degenerative changes that appear to be longstanding, I do not see anything acute. Is possible that she just strained her back in this need some conservative treatment. I offered her physical therapy but she deferred. I offered a consultation for pain management. She would prefer to see someone locally in the [facility] so I will sendw her to Dr. Slade. I am wondering if trigger point injections would not be enough just to make this quiet down. I am not sure if it has anything to do with the degenerative changes in her spine as the onset of the symptoms were rather acute and I do not see anything acute in her low back MRI such as a herniated disc etc.. I will defer to as to what he sees fit to best treat her. Nothing on the MRI suggest she will need surgery. We can see her back on an as-needed basis. Thank you for allowing us to care for your patient. The total time spent with this visit with this patient was 45 minutes reviewing history, physical exam, lumbar imaging review, and implementation of treatment plan or further diagnostic testing Jose Cruz Salazar MD,PhD [facility] Orders: Referrals Pain Management Referral M54.9 - Dorsalgia, unspecified Coding Level of Care Code New Pt Level 4 (56018) Diagnoses Back pain M54.9
== END 2023-11-06 15:32 | disposition home or self-care (01) ==
PROVIDERS: PCP Internal Medicine; Referring Provider Internal Medicine; Visit Provider Physician Assistant
DX: M54.9 Dorsalgia, unspecified (principal)
CPT/HCPCS: 99204

== ENCOUNTER → 2023-11-06 13:35 | Outpatient (BNVA) | payer MEDICARE, SELFPAY | PROVIDERS: PCP Internal Medicine; Visit Provider Physician Assistant | DX: M54.9 Dorsalgia, unspecified (principal) | CPT/HCPCS: 99202 ==

== ENCOUNTER 2023-11-12 12:38 | Outpatient (AMB) | payer MEDICARE, SELFPAY ==
--- NOTE | 2023-11-12 13:05 | A.OFFVIS_ITS ---
Vital Signs 11/12/23 13:06 Height 5 ft 2 in Weight 123 lb 7.342 oz BMI 22.6 BP 119/56 L Blood Pressure Location Lt brachial Pulse 87 Intake Visit Reasons: pt req appointment Intake Note: Marah presents in the office as a follow up requested per patient. CC: She states that she was having severe pains - the pains have gotten better but she would like to still talk with Leanne. Drug And Alcohol Treatment Specialist Required: No Allergies oxycodone Allergy (Intermediate, Verified 11/12/23 13:24) Migraine Penicillins [PENICILLINS] Allergy (Intermediate, Verified 11/12/23 13:07) HIVES prednisone Allergy (Intermediate, Verified 11/12/23 13:24) yeast infection influenza virus vaccine, specific [FLU VACCINE] Allergy (Unknown, Verified 11/12/23 13:07) PT DEVELOPED SOB AND LOCAL SWELLING THIS YR metronidazole [From Flagyl] Adverse Reaction (Verified 11/12/23 13:07) severe diarrhea, HPI HPI pt req appointment: Details: LAST VISIT Chronic idiopathic constipation IBS (irritable bowel syndrome) Postprandial abdominal bloating Plan Continue Linzess and Colace. Increase fluid intake and activity to promote better bowel motility. Patient will be due to go for colonoscopy soon. Next visit will discuss going for colonoscopy. Patient is agreeable to this plan and verbalizes understanding of instructions. She was given the opportunity to ask questions and all questions answered. ? TODAY'S VISIT Patient is here today for requested visit. Patient states that she bent over few weeks ago and felt a pop in her back. Was given script for oxycodone and patient reports that this gave her a horrible headache and she became cons tipated. Patient was unable to move her bowels despite taking Linzess and Colace. Patient was drinking plenty fluids. Reports that her pain got unbearable that is when she called the office. Currently patient reports that the pain went away. However patient still has annoying back pain that she is trying to get rid of. Patient has seen orthopedics. 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 Elevated blood pressure reading Tobacco use disorder, mild, abuse Mammogram declined Immunization declined Tubular adenoma Smoker History of nephrolithiasis Lumbar disc herniation Hearing loss Osteopenia of multiple sites Vitamin D deficiency Surgical History History of fusion of cervical spine History of lumbar discectomy History of cataract extraction Hx of colonoscopy Family History Father Cancer Mother Diabetes mellitus Sister Brain cancer Social History Housing: House Alcohol intake: former Patient Tobacco Use Status: Current everyday Tobacco user Cigarettes Per Day: 3 Years Smoked: 50 e-Cigarette/Vaping Use: Never Used service: No Current occupational status: retired Cognitive needs: No Hearing needs: No Vision needs: Yes Review of Systems Const Denies weight gain and Denies weight loss ENT Reports no additional complaints, Denies dysphagia and Denies odynophagia Card Reports no additional complaints Resp Reports no additional complaints GI Denies abdominal pain, Denies belching, Denies melena, Denies bloating, Denies change in bowel habits, Reports constipation, Reports GI cramping, Denies dysphagia, Denies excessive flatus, Denies dyspepsia, Denies heartburn, Denies diarrhea, Denies loose stools, Denies nausea, Denies odynophagia and Denies vomiting Reports no additional complaints Musc Reports no additional complaints Neuro Reports no additional complaints Psych Reports no additional complaints Endo Reports no additional complaints Physical Exam Vital Signs: Last Vital Signs Pulse 87 11/12/23 13:06 BP 119/56 L 11/12/23 13:06 BMI result Body Mass Index 22.6 Const General: healthy appearing, no acute distress and well developed Nutritional Appearance: well nourished Orientation/consciousness: patient oriented x3 Resp Effort & Inspection: normal respiratory effort, able to speak in complete sentences, no tracheal deviation and symmetric chest movement Auscultation: clear to auscultation bilaterally Cardio Rate: regular rate GI Inspection: Yes normal to inspection and No distended Palpation (GI): Soft to palpation, not firm, nontender and No hepatosplenomegaly present Auscultation: normal bowel sounds General: Yes no CVA tenderness Back/Spine/Pelvis Back: no CVA tenderness Skin General skin exam: elasticity normal, turgor normal and dry skin Neuro General: patient oriented x3 Psych Appearance: grossly normal Mental Status: mental status grossly normal Assessment & Plan Assessment & Plan (1) Back pain: Code(s): M54.9 - Dorsalgia, unspecified Category: Medical Qualifiers: Back pain location: low back pain Chronicity: unspecified Back pain laterality: bilateral Sciatica presence: unspecified whether sciatica present Qualified Code(s): M54.50 - Low back pain, unspecified (2) Chronic idiopathic constipation: Code(s): K59.04 - Chronic idiopathic constipation (3) IBS (irritable bowel syndrome): Code(s): K58.9 - Irritable bowel syndrome without diarrhea (4) Postprandial abdominal bloating: Code(s): R14.0 - Abdominal distension (gaseous) (5) Abdominal pain: Code(s): R10.9 - Unspecified abdominal pain Plan Continue Linzess and Colace. Patient will take magnesium oxide at bedtime. Increase fluid intake and activity to promote better bowel motility. Patient also will try to take probiotic daily. Follow-up in 6 months. We will discuss going for colonoscopy as patient will be due by then. Patient is agreeable to current plan of care and verbalizes understanding of instructions. She was given the opportunity to ask questions and all questions answered. Thank you for allowing me to participate in her care Medications: New magnesium oxide 400 mg PO DAILY 90 caps 2RF K59.04 - Chronic idiopathic constipation Coding Level of Care Code Est Pt Level 4 (32769) Diagnoses Bilateral low back pain, unspecified chronicity, unspecified whether sciatica present M54.50 Back pain location: low back pain Chronicity: unspecified Back pain laterality: bilateral Sciatica presence: unspecified whether sciatica present Chronic idiopathic constipation K59.04 IBS (irritable bowel syndrome) K58.9 Postprandial abdominal bloating R14.0 Abdominal pain R10.9 Time Spent (min) 35 Comment 20 minutes spent with patient and additional 15 minutes spent reviewing her r ecords
[2023-11-12 13:06] VITALS: BP 119/56; PULSE 87; BMI 22.6
== END 2023-11-12 13:32 | disposition home or self-care (01) ==
PROVIDERS: PCP Internal Medicine; Visit Provider Nurse Practitioner Family
DX: M54.50 Low back pain, unspecified (principal); K59.04 Chronic idiopathic constipation; K58.9 Irritable bowel syndrome, unspecified; R14.0 Abdominal distension (gaseous); R10.9 Unspecified abdominal pain
CPT/HCPCS: 99214

== ENCOUNTER → 2023-11-12 12:38 | Outpatient (BNVA) | payer MEDICARE, SELFPAY | PROVIDERS: PCP Internal Medicine; Visit Provider Nurse Practitioner Family | DX: M54.50 Low back pain, unspecified (principal); R14.0 Abdominal distension (gaseous); R10.9 Unspecified abdominal pain; K59.04 Chronic idiopathic constipation; K58.9 Irritable bowel syndrome, unspecified | CPT/HCPCS: 99212 ==

== ENCOUNTER 2023-12-01 09:38 | Outpatient (AMB) | payer MEDICARE, SELFPAY ==
--- NOTE | 2023-12-01 09:40 | A.OFFVIS_ITS ---
Vital Signs 12/01/23 09:41 Height 5 ft 2 in Weight 122 lb BMI 22.3 BP 130/70 Blood Pressure Location Lt brachial Position Sitting Respiration 15 Pulse 79 Pulse Source Pulse Oximeter Pulse Oximetry (%) 97 Oxygen Delivery Method Room Air Intake Visit Reasons: Dorsalgia Allergies oxycodone Allergy (Intermediate, Verified 12/01/23 09:42) Migraine Penicillins [PENICILLINS] Allergy (Intermediate, Verified 12/01/23 09:42) HIVES prednisone Allergy (Intermediate, Verified 12/01/23 09:42) yeast infection influenza virus vaccine, specific [FLU VACCINE] Allergy (Unknown, Verified 12/01/23 09:42) PT DEVELOPED SOB AND LOCAL SWELLING THIS YR metronidazole [From Flagyl] Adverse Reaction (Verified 12/01/23 09:42) severe diarrhea, Medication List - Last Reconciled 12/01/23 by Aliya Monk LPN atorvastatin 10 mg PO DAILY cholecalciferol (vitamin D3) 50 mcg PO DAILY cyclobenzaprine 10 mg PO BEDTIME docusate sodium 200 mg (2 x 100 mg) PO BEDTIME lidocaine 4% 1 patch topical BID PRN linaclotide (Linzess) 290 mcg PO QAM magnesium oxide 400 mg PO DAILY HPI HPI Dorsalgia: Details: 78-year-old female who presents today to the office for evaluation of dorsalgia.? She has a history of a previous right L4-5, right L5-S1 micro-diskectomy in 2002. She recovered from that without incident and was doing well until about two months ago when she was bending over to clean a refrigerator and felt something pull on the right side of her low back. Her pain is localized in the right-sided low back region that occasionally radiates down to her leg. She describes her pain as on and off in nature. She has occasional feelings like her right leg will give out. She has some residual dysesthesias from her original surgery. Her pain was worse in the month of September and October 2023 for more than 6/10 in intensity on constant basis. Since starting Flexeril last week, her pain is significantly improved and is not bothersome. She has no new weakness. She was in the emergency room three times. She was tried on steroids but developed some GI issues. She was on oxycodone. She also takes ibuprofen, muscle relaxers, and lidocaine patches over the area on the back. If she presses her hand to the area of the low back, she can make the pain go away. She will do this when she is walking to help increase the distance she can go. She is not doing any home exercises. She denies any pain with walking or standing from a sitting position. She reports soreness with prolonged standing.? She has been using muscle relaxant and ibuprofen as needed. Her last dose of ibuprofen was on November 25, 2023. She has been doing gentle stretching exercises. She works with [employer], which required prolonged sitting and handling microscope. She has a lumbar MRI done at [facility]; this shows postsurgical changes at L4-5 and L5-S1. I do not see any evidence of significant nerve compression at these levels. There is moderate stenosis at L3-4. There are degenerative changes of the discs at L4-5 and L5-S1. 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 Elevated blood pressure reading Tobacco use disorder, mild, abuse Mammogram declined Immunization declined Tubular adenoma Smoker History of nephrolithiasis Lumbar disc herniation Hearing loss Osteopenia of multiple sites Vitamin D deficiency Surgical History History of fusion of cervical spine History of lumbar discectomy History of cataract extraction Hx of colonoscopy Family History Father Cancer Mother Diabetes mellitus Sister Brain cancer Social History Housing: House Alcohol intake: former Patient Tobacco Use Status: Current everyday Tobacco user Cigarettes Per Day: 3 Years Smoked: 50 e-Cigarette/Vaping Use: Never Used service: No Current occupational status: retired Cognitive needs: No Hearing needs: No Vision needs: Yes Review of Systems Const All systems reviewed & are unremarkable except as noted in HPI and below Physical Exam Vital Signs: Last Vital Signs Pulse 79 12/01/23 09:41 Resp 15 12/01/23 09:41 BP 130/70 12/01/23 09:41 Pulse Ox 97 12/01/23 09:41 Oxygen Delivery Method Room Air 12/01/23 09:41 BMI result Body Mass Index 22.3 General: Appears afebrile. Alert and oriented. Mood and affect appropriate. Follows and participates in conversation appropriately. Respiratory effort is unlabored. Able to transition from sit to stand unassisted. Ambulates with bilaterally normal heel strike and toe off. Results Reviewed Results Reviewed: 10/25/23: MR SPINE LUMBAR without CONTRAST FINDINGS: Mild degenerative anterolisthesis of L5 on S1. Mild edematous changes of the anterior superior L4 vertebral body. No findings of fracture. There is loss of intervertebral disc space height, mild endplate irregularity, marginal osteophyte formation and mixed Modic type changes L4-L5. Endplate Modic type II changes inferior endplate L2. Mild loss of intervertebral disc space height L2-L3, L3-L4 and L5-S1. Lumbar facet arthrosis. Edematous changes of the L3-L4 facets, RIGHT greater than LEFT. Conus and cauda equina of normal appearance. Conus tip T12- L1. No acute paraspinal abnormality identified. Examination through the L1-L2 intervertebral level without central stenosis or foraminal narrowing. Examination through the L2-L3 intervertebral level revealing facet arthrosis and prominence of ligamentum flavum. Posterior disc osteophyte. Mild central stenosis. Bilateral lateral recess encroachment. Mild bilateral foraminal narrowing. Examination through the L3-L4 intervertebral level revealing facet arthrosis. Prominence of ligament flavum. Posterior disc osteophyte. Moderate central stenosis. Bilateral lateral recess encroachment. Moderate bilateral foraminal narrowing. Examination through the L4-L5 intervertebral level revealing posterior disc osteophyte. No significant central stenosis. Bilateral lateral recess encroachment. Moderate bilateral foraminal narrowing. Examination through the L5-S1 intervertebral level revealing facet arthrosis. Mi ld degenerative anterior listhesis. No significant central stenosis. Moderate bilateral foraminal narrowing, LEFT greater than RIGHT. IMPRESSION: Lumbar spondylotic changes and facet arthrosis. Note made of edematous changes of a degenerative nature associated with the L3-L4 facets, RIGHT greater than LEFT. Mild degenerative anterolisthesis of L5 on S1. No findings of lumbar fracture or traumatic listhesis. No suggestion of an acute disc protrusion. Varying degrees of relative chronic appearing central stenosis and foraminal narrowing as detailed above. Assessment & Plan Assessment & Plan (1) Back pain: Code(s): M54.9 - Dorsalgia, unspecified Category: Medical Qualifiers: Back pain location: low back pain Chronicity: unspecified Back pain laterality: bilateral Sciatica presence: unspecified whether sciatica present Qualified Code(s): M54.50 - Low back pain, unspecified Plan At this time, her symptoms seemed to be under control and manageable. She would like to follow up if any of her symptoms flare up again. We can try trigger point injections in the office for the differential, which includes facet arthritis, sacroiliac joint dysfunction, vertebral endplate degeneration, and lumbar radiculitis due to intervertebral disc degeneration. Scribed for Dr. Slade by Yrn Lyons, medical claims representative, on 12/01/2023. I, Dr. Slade, have personally reviewed and agree with the information entered by the scribe. Coding Level of Care Code New Pt Level 3 (02623) Diagnoses Bilateral low back pain, unspecified chronicity, unspecified whether sciatica present M54.50 Back pain location: low back pain Chronicity: unspecified Back pain laterality: bilateral Sciatica presence: unspecified whether sciatica present
[2023-12-01 09:41] VITALS: BP 130/70; PULSE 79; RESP 15; O2SAT 97; BMI 22.3
== END 2023-12-01 10:39 | disposition home or self-care (01) ==
LOC: HO.PMC 09:38
PROVIDERS: PCP Internal Medicine; Referring Provider Physician Assistant; Visit Provider Internal Medicine
DX: M54.50 Low back pain, unspecified (principal)
CPT/HCPCS: 99203

== ENCOUNTER → 2023-12-01 09:38 | Outpatient (BNVA) | payer MEDICARE, SELFPAY | PROVIDERS: PCP Internal Medicine; Referring Provider Physician Assistant; Visit Provider Internal Medicine | DX: M54.50 Low back pain, unspecified (principal) | CPT/HCPCS: 99202 ==

== ENCOUNTER 2023-12-19 08:44 | Outpatient (REF) | payer MEDICARE, SELFPAY ==
[2023-12-19 10:30] LABS: Alanine Aminotransferase 14 U/L (0-31); Anion Gap 10 (12-20); Aspartate Amino Transferase 22 U/L (5-31); Blood Urea Nitrogen 11 mg/dL (9-16); Calcium 9.3 mg/dL (8.4-10.2); Carbon Dioxide 30 mmol/L (22-29); Chloride 106 mmol/L (96-108); Cholesterol 155 mg/dL (<200); Estimated Glomerular Filt Rate > 60; Glucose Fasting 98 mg/dL (60-99); HDL Cholesterol 53 mg/dL (>40); LDL Cholesterol Calculated 83 mg/dL (<100); Potassium 4.2 mmol/L (3.3-5.1); Sodium 142 mmol/L (135-145); Triglycerides 99 mg/dL (<150)
[2023-12-19 10:53] LABS: Vitamin D 25-OH Total 64.5 ng/mL (>30)
== END 2023-12-19 08:45 | disposition home or self-care (01) ==
LOC: HO.HMGCLDS 08:44
PROVIDERS: PCP Internal Medicine; Visit Provider Internal Medicine
DX: Z00.01 Encounter for general adult medical examination with abnormal findings (principal); M81.0 Age-related osteoporosis without current pathological fracture; E78.5 Hyperlipidemia, unspecified
CPT/HCPCS: 36415; 80048; 80061; 82306; 84450; 84460

== ENCOUNTER 2023-12-25 10:57 | Outpatient (REF) | payer MEDICARE, SELFPAY ==
--- NOTE | ~2023-12-25 | MM_ITS ---
EXAMINATION: BONE DENSITOMETRY CLINICAL INDICATION: Age-related osteoporosis without current pathological fracture. COMPARISON: Previous BD dated 11/16/2021 and baseline BD dated 11/21/2009. TECHNIQUE: Using a Examify DXA System (software version: 13.1) manufactured by [employer], dual-energy x-ray absorptiometry was performed of the lumbar spine and left hip. The images are of good technical quality. Summary results are attached. FINDINGS: AP SPINE L1-L4: Current: BMD 0.828 g/cm2, Z-score -0.8, T-score -2.9, osteoporosis, 5.6% decrease from previous, 18.3% decrease from baseline (<5% change is not significant). Prior: BMD 0.877 g/cm2. Baseline: BMD 1.014 g/cm2. LEFT FEMUR, NECK: Current: BMD 0.684 g/cm2, Z-score -0.3, T-score -2.5, osteoporosis. Prior: BMD 0.715 g/cm2. Baseline: BMD 0.795 g/cm2. LEFT FEMUR, TOTAL: Current: BMD 0.748 g/cm2, Z-score 0.1, T-score -2.1, osteopenia, 4.3% decrease from previous, 8.0% decrease from baseline (<5% change is not significant). Prior: BMD 0.782 g/cm2. Baseline: BMD 0.813 g/cm2. IDENTIFIED RISK FACTORS: Current smoker. Menopause. History of adult fracture. HISTORY OF FRACTURE: Spine. MEDICATIONS: Vitamin D. MM/XR DEXA axial skeleton IMPRESSION: 1. DIAGNOSIS: Severe osteoporosis based on the lowest T-score value of -2.9 in the lumbar spine and the prior history of fracture applying World Health Organization criteria. 2. 10-YEAR FRACTURE RISK PREDICTION, FRAX: Not performed in this patient on estrogen or bone building treatments. 3. Treatment Recommendations: NOF guidelines recommend consideration for treatment in postmenopausal women and men age 50 and older presenting with the following: -A hip or vertebral (clinical or morphometric) fracture. -T-score less than or equal to -2.5 at the femoral neck or spine after appropriate evaluation to exclude secondary causes. -Low bone mass at the hip or spine and a 10-year fracture probability by FRAX of greater than or equal to 3% for hip fracture or greater than or equal to 20% for major osteoporotic fracture based on the [place] adapted WHO algorithm. 4. Other Recommendations: All treatment decisions require clinical judgment and consideration of individual patient factors, including patient preferences, comorbidities, previous drug use, risk factors not captured in the FRAX model (e.g. frailty, falls, vitamin D deficiency, increased bone turnover, interval significant decline in bone density) and possible under or overestimation of fracture risk by FRAX. Additional medical evaluation for secondary cause of low bone mineral density may be appropriate. FUTURE SCAN RECOMMENDATION: People with diagnosed cases of osteoporosis or at high risk for fracture should have regular bone mineral density tests. For patients eligible for Medicare, routine testing is allowed once every 2 years. The testing frequency can be increased to one year for patients who have rapidly progressing disease, those who are receiving or discontinuing medical therapy to restore bone mass, or have additional risk factors. Electronically signed by: Johnnie Hunter MD 12/26/2023 12:18 PM EDT
== END 2023-12-25 10:58 | disposition home or self-care (01) ==
LOC: HO.MAMMO 10:57
PROVIDERS: PCP Internal Medicine; Visit Provider Internal Medicine
DX: M81.0 Age-related osteoporosis without current pathological fracture (principal)
CPT/HCPCS: 77080

== ENCOUNTER 2023-12-29 11:21 | Outpatient (AMB) | payer MEDICARE, SELFPAY ==
[2023-12-29 11:56] VITALS: BP 104/80; PULSE 87; O2SAT 98; BMI 22.7
--- NOTE | 2023-12-29 11:56 | A.OFFPC_ITS ---
Vital Signs 12/29/23 11:56 Height 5 ft 2 in Weight 124 lb BMI 22.7 BP 104/80 Blood Pressure Location Rt brachial Position Sitting Pulse 87 Pulse Source Pulse Oximeter Pulse Oximetry (%) 98 Oxygen Delivery Method Room Air Intake Visit Reasons: 6 Month F/U Lipids, Dexa Scan, Labs Intake Note: Pt is here today for her 6mo. f/u lipids, dexa scan Allergies oxycodone Allergy (Intermediate, Verified 12/29/23 12:16) Migraine Penicillins [PENICILLINS] Allergy (Intermediate, Verified 12/29/23 12:16) HIVES prednisone Allergy (Intermediate, Verified 12/29/23 12:16) yeast infection influenza virus vaccine, specific [FLU VACCINE] Allergy (Unknown, Verified 12/29/23 12:16) PT DEVELOPED SOB AND LOCAL SWELLING THIS YR metronidazole [From Flagyl] Adverse Reaction (Verified 12/29/23 12:16) severe diarrhea, Medication List - Last Reconciled 12/29/23 by Lizzie Lantigua MD atorvastatin 10 mg PO DAILY cholecalciferol (vitamin D3) 50 mcg PO DAILY cyclobenzaprine 10 mg PO BEDTIME docusate sodium 200 mg (2 x 100 mg) PO BEDTIME lidocaine 4% 1 patch topical BID PRN linaclotide (Linzess) 290 mcg PO QAM magnesium oxide 400 mg PO DAILY Tobacco use date assessed: 12/29/23 Fall risk assessment: No Falls in past year Last assessed Fall Risk: 12/29/23 Dental Screening Dental Screen Date: 12/29/23 Did you have a dental visit in the last 12 months?: No Did you have a dental problem in the last 6 months where you did not have access to dental care?: No Was dental information given to patient?: Patient declined HPI 6 Month F/U Lipids, Dexa Scan, Labs HPI Details 78-year-old lady here today for to discu ss results of recent bone density scan which showed presence of osteoporosis. No history of trauma or fracture. She is also here to discuss results of recent labs done which showed lipids within normal limits. Currently is on atorvastatin 10 mg daily. Complains of a pruritic rash that appeared on her left patella, present now for the last several months. Has been applying [id number] Benadryl cream due to itching affords only temporary relief. 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 Elevated blood pressure reading Tobacco use disorder, mild, abuse Mammogram declined Immunization declined Tubular adenoma Smoker History of nephrolithiasis Lumbar disc herniation Hearing loss Osteopenia of multiple sites Vitamin D deficiency Surgical History History of fusion of cervical spine History of lumbar discectomy History of cataract extraction Hx of colonoscopy Family History Father Cancer Mother Diabetes mellitus Sister Brain cancer Social History Housing: House Alcohol intake: former Patient Tobacco Use Status: Current everyday Tobacco user Cigarettes Per Day: 3 Years Smoked: 50 e-Cigarette/Vaping Use: Never Used service: No Current occupational status: retired Cognitive needs: No Hearing needs: No Vision needs: Yes Questionnaire PHQ-9 Over the last 2 weeks, how often have you been bothered by any of the following problems? 1. Little interest or pleasure in doing things: not at all 2. Feeling down, depressed, or hopeless: not at all 3. Trouble falling or staying asleep, or sleeping too much: not at all 4. Feeling tired or having little energy: not at all 5. Poor appetite or overeating: not at all 6. Feeling bad about yourself - or that you are a failure or have let yourself or your family down: not at all 7. Trouble concentrating on things, such as reading the newspaper or watching television: not at all 8. Moving or speaking so slowly that other people could have noticed. Or the opposite - being so fidgety or restless that you have been moving around a lot more than usual: not at all 9. Thoughts that you would be better off or of hurting yourself in some way: not at all Total score: 0 Depression Screening Interpretation: Negative Depression Screening Done: Yes 65502 - PHQ-9 Billing: Yes Source: Developed by Drs. Huy Junior, Marika Maurer, Dion Wright and colleagues, with an educational joselny from [employer]. Thrive Questionnaire Date Thrive assessed: 06/30/23 I am a: Patient What is your living situation today?: I have a steady place to live Within the past 12 months, did the food you bought not last and you didn't have the money to get more?: Never true Within the past 12 months, did you worry whether your food would run out before you got money to buy more?: Never true Do you have trouble paying for medicines?: No Do you have trouble getting transportation to medical appointments?: No Do you have trouble paying your heating and electricity bill?: No Do you have trouble taking care of your child, family member or friend?: No Do you have trouble with day-to-day activities such as bathing, preparing meals, shopping, managing finances, etc.?: No Are you currently unemployed and looking for a job?: No Are you interested in more education?: No Please select the resources that you would like help with: None Currently or been in a relationship where the following occur: No concerns reported THRIVE Score: 0 AUDIT C Alcohol Use Questionnaire (AUDIT-C) 1. How often do you have a drink containing alcohol?: Never Total Score: 0 CAROLIN-7 AMB Questionnaire CAROLIN-7 Date CAROLIN - 7 assessed: 06/30/23 Feeling nervous, anxious, or on edge: 0 = Not at all Not being able to stop or control worryin = Not at all Worrying too much about different things: 0 = Not at all Trouble relaxin = Not at all Being so restless that it is hard to sit still: 0 = Not at all Becoming easily annoyed or irritable: 0 = Not at all Feeling afraid as if something awful might happen: 0 = Not at all Total CAROLIN-7 score (0-4 normal; 5-9 mild; 10-14 moderate; 15-21 severe): 0 Source: Developed by Drs. Huy Junior, Marika Maurer, Dion Wright and colleagues, with an educational joselyn from [employer]. Review of Systems Const All systems reviewed & are unremarkable except as noted in HPI and below Physical exam (Primary Care) Vital Signs: Last Vital Signs Pulse 87 12/29/23 11:56 BP 104/80 12/29/23 11:56 Pulse Ox 98 12/29/23 11:56 Oxygen Delivery Method Room Air 12/29/23 11:56 BMI result Body Mass Index 22.7 Tobacco/Smoking Status: Tobacco use Status Tobacco use date assessed 12/29/23 12/29/23 11:59 Patient Tobacco Use Status Current everyday Tobacco 12/29/23 11:57 e-Cigarette/Vaping Use Never Used 12/29/23 11:57 PHQ-9: PHQ-9 Score PHQ-9: Total score 0 01/05/24 01:50 Depression Screening Interpretation: Negative Thrive Assessment: Date of Thrive Assessment Date Thrive assessed 06/30/23 12/29/23 11:57 Currently or been in a relationship where the following occur: No concerns reported Const Other: Alert oriented x3, no acute cardiorespiratory distress noted, ambulatory with normal gait HENLA Head: Yes normocephalic Ears: hearing grossly impaired General nose exam: Normal external nose present Face and sinus: Yes face symmetric Mouth: Normal oral and palatal mucosa present and moist mucous membranes Eyes General: appearance normal, both eyes and all related structures Neck Other: Supple with no lymphadenopathy, thyroid gland nonpalpable Resp Auscultation: clear to auscultation bilaterally Cardio Other: S1-S2 present regular rate and rhythm GI Inspection: Yes normal to inspection Palpation (GI): Soft to palpation, nontender, no guarding and no masses Auscultation: normal bowel sounds Back/Spine/Pelvis Other: Spine is midline, nontender to palpation, no CVA or back tenderness Thoracic/Lumbar Spine: straight leg raise negative bilaterally and thoraco- lumbar spasm Skin General skin exam: no rashes or lesions noted Neuro General: gait normal, tone normal, moves all extremities, Normal light touch and pain sensation, no focal motor deficits and CN's II-XI intact bilaterally Extrem General: Yes full ROM, Yes no joint enlargement and Yes no clubbing, cyanosis or edema Results Reviewed Results Reviewed: Name: Marah Sanchez Age/Sex: 78/F : 1945 Unit#: [id number] Attend Dr: Lizzie Lantigua MD Re12/19/23 Status: DEP REF Location: [facility] Disch: SPEC : [id number] FROILAN: 12/19/23 STATUS: COMP REQ : [id number] RECD: 12/19/[address]: Lizzie Lantigua MD COMP: 12/19/23 ENTERED: 12/19/23 [facility] DR: ORDERED: Met Prof Fast, AST, ALT, Lipid Panel, Vitamin D 25-OH Test Result Flag Reference Sodium 142 135-145 mmol/L Potassium 4.2 3.3-5.1 mmol/L CL 106 96-108 mmol/L CO2 30 H 22-29 mmol/L Gap 10 L 12-20 BUN 11 9-16 mg/dL Creat 0.73 0.5-1.4 mg/dL EGFR > 60 NOTE: For -[place] individuals, multiply the result by 1.210. Chronic Kidney Disease: Estimated GFR < 60 mL/min/1.73m2 Severe Kidney Disease: Estimated GFR < 15 mL/min/1.73m2 FBS 98 60-99 mg/dL CA 9.3 8.4-10.2 mg/dL AST (GOT) 22 5-31 U/L ALT (GPT) 14 0-31 U/L Triglyceride 99 <150 mg/dL Desirable Triglyceride: less than 150 mg/dL Borderline High Triglyceride 150-199 mg/dL High Triglyceride: 200-499 mg/dL Very High Triglyceride: greater than or equal to 5OO mg/dL Cholesterol 155 <200 mg/dL Desirable Cholesterol: less than 200 mg/dL Borderline High Cholesterol: 200-239 mg/dL High Cholesterol: greater than 239 mg/dL LDL Calculated 83 <100 mg/dL Desirable LDL: less than 100 mg/dL Near Optimal/Above Optimal LDL: 110-129 mg/dL Borderline High LDL: 130-159 mg/dL High LDL: 160-189 mg/dL Very High LDL: greater than or equal to 190 mg/dL HDL 53 >40 mg/dL Desirable HDL: greater than 40 mg/dL Note: This HDL assay may give artificially low results in patients with liver disease. Vit D 25-OH Tot 64.5 >30 ng/mL Health Based Reference Values* < 20 ng/mL Deficient 20-30 ng/mL Insufficient > 30 ng/mL Sufficient Coding Level of Care Code Est Pt Level 4 (14925) Complex EM visit Add On G2211 Diagnoses Osteoporosis of lumbar spine M81.0 Dyslipidemia E78.5 Smoker unmotivated to quit F17.200 Pruritic rash L28.2 Assessment & Plan Assessment & Plan (1) Osteoporosis of lumbar spine: Code(s): M81.0 - Age-related osteoporosis without current pathological fracture Category: Medical Plan: Discussed results of recent bone density scan done this year which showed worsening osteoporosis in lumbar spine and left femoral neck, osteopenia still in left femur. Discuss treatment options with patient but does not want to start anything at present time. Strongly encouraged to do regular weight- bearing exercise, take adequate calcium from dietary sources and continue with vitamin-D 3 supplements. Fall prevention again discussed with patient. Will we discuss treatment options again with patient on next follow-up visit in 04/2024 (2) Dyslipidemia: Code(s): E78.5 - Hyperlipidemia, unspecified Category: Medical Plan: Reviewed recent fasting lipid profile with patient with levels within normallimits . Continue atorvastatin 10 mg daily , in addition to adherence to low-cholesterol diet and regular exercise, at least 30 minutes 3 to 4 times a week. Advised patient to make healthy food choices, eat more fruits, vegetables, whole grains, wild caught fish and low-fat dairy. Limit amount of meat and fried or fatty food products, as well as processed foods and fast foods. Follow-up scheduled with repeat fasting lipid panel in 04/2024 (3) Smoker unmotivated to quit: Code(s): F17.200 - Nicotine dependence, unspecified, uncomplicated Category: Social Hx Plan: Patient strongly advised to stop smoking, as smoking damages blood vessels, degenerative of joints and spine, damage to lungs and heart., predisposes to developing certain cancers like lung, breast, bladder, colon. Recommended to try decreasing cigarette use by 1-2 cigarettes a day. Advised to monitor what triggers are for smoking so that this can be discussed on the next office visit. We can discuss different options to quit smoking when ready. (4) Pruritic rash: Code(s): L28.2 - Other prurigo Plan: Prescription sent for triamcinolone acetonide cream 0.1%, apply sparingly to affected area on left knee twice a day for no more than 10 days at a time. [facility] if no resolution of rash seen Orders: Orders Vitamin D 25-OH Total 04/24/24 E78.5 - Hyperlipidemia, unspecified, M81.0 - Age-related osteoporosis without current pathological fracture Lipid Panel 04/24/24 E78.5 - Hyperlipidemia, unspecified, M81.0 - Age-related osteoporosis without current pathological fracture Aspartate Amino Transferase 04/24/24 E78.5 - Hyperlipidemia, unspecified, M81.0 - Age-related osteoporosis without current pathological fracture Alanine Aminotransferase 04/24/24 E78.5 - Hyperlipidemia, unspecified, M81.0 - Age-related osteoporosis without current pathological fracture Basic Metabolic Panel Fasting 04/24/24 E78.5 - Hyperlipidemia, unspecified, M81.0 - Age-related osteoporosis without current pathological fracture Medications: New triamcinolone acetonide 0.1% Apply sparingly to affected area on left knee twice a day for no more than 10 days 1 appl topical BID 15 grams 0RF 10 days L28.2 - Other prurigo
== END 2023-12-29 12:46 | disposition home or self-care (01) ==
LOC: HO.HMCC 11:22
PROVIDERS: PCP Internal Medicine; Visit Provider Internal Medicine
DX: M81.0 Age-related osteoporosis without current pathological fracture (principal); E78.5 Hyperlipidemia, unspecified; F17.200 Nicotine dependence, unspecified, uncomplicated; L28.2 Other prurigo

== ENCOUNTER → 2023-12-29 11:21 | Outpatient (BNVA) | payer MEDICARE, SELFPAY | PROVIDERS: PCP Internal Medicine; Visit Provider Internal Medicine | DX: M81.0 Age-related osteoporosis without current pathological fracture (principal); E78.5 Hyperlipidemia, unspecified | CPT/HCPCS: 99212 ==

== ENCOUNTER 2024-03-05 09:49 | Outpatient (AMB) | payer MEDICARE, SELFPAY ==
[2024-03-05 09:51] VITALS: BP 126/72; PULSE 88; O2SAT 97; BMI 23.5
--- NOTE | 2024-03-05 09:51 | A.OFFVIS_ITS ---
Vital Signs 03/05/24 09:51 Height 5 ft 2 in Weight 128 lb 11.999 oz BMI 23.5 BP 126/72 Blood Pressure Location Rt brachial Position Sitting Pulse 88 Pulse Source Pulse Oximeter Pulse Oximetry (%) 97 Oxygen Delivery Method Room Air Intake Visit Reasons: 6 month f/u Intake Note: ESTABLISHED PATIENT Reason; 6 mo Changes/concerns? No significant concerns per pt. Pt states current regimen has helped significantly. Allergies oxycodone Allergy (Intermediate, Verified 03/05/24 09:55) Migraine Penicillins [PENICILLINS] Allergy (Intermediate, Verified 03/05/24 09:55) HIVES prednisone Allergy (Intermediate, Verified 03/05/24 09:55) yeast infection influenza virus vaccine, specific [FLU VACCINE] Allergy (Unknown, Verified 03/05/24:55) PT DEVELOPED SOB AND LOCAL SWELLING THIS YR metronidazole [From Flagyl] Adverse Reaction (Verified 03/05/24:55) severe diarrhea, HPI HPI 6 month f/u: Details: LAST VISIT: Back pain Chronic idiopathic constipation IBS (irritable bowel syndrome) Postprandial abdominal bloating Abdominal pain Plan Continue Linzess and Colace. Patient will take magnesium oxide at bedtime. Increase fluid intake and activity to promote better bowel motility. Patient also will try to take probiotic daily. Follow-up in 6 months. We will discuss going for colonoscopy as patient will be due by then. Patient is agreeable to current plan of care and verbalizes understanding of instructions. She was given the opportunity to ask questions and all questions answered. ? Thank you for allowing me to participate in her care Medications New magnesium oxide 400 mg PO DAILY 90 caps 2RF K59.04 TODAY'S VISIT: Patient is here today for follow-up. Patient reports that she has been doing fairly well since last visit. Patient is continuing on Linzess and is taking magnesium at bedtime. Significant improvement with bowel movements. Patient is also drinking more fluids. Patient denies any melena, hematochezia, unintentional weight loss or ribbon like stools. Occasional abdominal bloating still depending on what she eats. Patient denies any dyspepsia, dysphagia or odynophagia. Patient will be due to go for colonoscopy this year. Last colonoscopy was in November of 2020 that showed 1 tubular adenoma without high- grade dysplasia or carcinoma. Patient reports to be doing well. Denies any significant GI concerning symptoms. 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 Elevated blood pressure reading Tobacco use disorder, mild, abuse Mammogram declined Immunization declined Tubular adenoma Smoker History of nephrolithiasis Lumbar disc herniation Hearing loss Osteopenia of multiple sites Vitamin D deficiency Surgical History History of fusion of cervical spine History of lumbar discectomy History of cataract extraction Hx of colonoscopy Family History Father Cancer Mother Diabetes mellitus Sister Brain cancer Social History Housing: House Alcohol intake: former Patient Tobacco Use Status: Current everyday Tobacco user Cigarettes Per Day: 3 Years Smoked: 50 e-Cigarette/Vaping Use: Never Used service: No Current occupational status: retired Cognitive needs: No Hearing needs: No Vision needs: Yes Review of Systems Const Denies weight gain and Denies weight loss ENT Reports no additional complaints, Denies dysphagia and Denies odynophagia Card Reports no additional complaints Resp Reports no additional complaints GI Denies abdominal pain, Denies belching, Denies melena, Reports bloating (Occasional), Denies change in bowel habits, Denies dysphagia, Denies excessive flatus, Denies dyspepsia, Denies heartburn, Denies diarrhea, Denies loose stools, Denies nausea, Denies odynophagia and Denies vomiting Musc Reports no additional complaints Neuro Reports no additional complaints Psych Reports no additional complaints Endo Reports no additional complaints Physical Exam Vital Signs: Last Vital Signs Pulse 88 03/05/24 09:51 BP 126/72 03/05/24 09:51 Pulse Ox 97 03/05/24 09:51 Oxygen Delivery Method Room Air 03/05/24 09:51 BMI result Body Mass Index 23.5 Const General: healthy appearing, no acute distress and well developed Nutritional Appearance: well nourished Orientation/consciousness: patient oriented x3 Resp Effort & Inspection: normal respiratory effort, able to speak in complete sentences, no tracheal deviation and symmetric chest movement Auscultation: clear to auscultation bilaterally Cardio Rate: regular rate GI Inspection: Yes normal to inspection and No distended Palpation (GI): Soft to palpation, not firm, nontender and No hepatosplenomegaly present Auscultation: normal bowel sounds General: Yes no CVA tenderness Back/Spine/Pelvis Back: no CVA tenderness Skin General skin exam: elasticity normal, turgor normal and dry skin Neuro General: patient oriented x3 Psych Appearance: grossly normal Mental Status: mental status grossly normal Assessment & Plan Assessment & Plan (1) Chronic idiopathic constipation: Code(s): K59.04 - Chronic idiopathic constipation (2) IBS (irritable bowel syndrome): Code(s): K58.9 - Irritable bowel syndrome, unspecified Qualifiers: Irritable bowel syndrome type: with constipation Qualified Code(s): K58.1 - Irritable bowel syndrome with constipation (3) Postprandial abdominal bloating: Code(s): R14.0 - Abdominal distension (gaseous) (4) Abdominal pain: Code(s): R10.9 - Unspecified abdominal pain Qualifiers: Abdominal location: left lower quadrant Qualified Code(s): R10.32 - Left lower quadrant pain Plan Continue current management with Linzess in the morning and magnesium at night time. Patient will continue increase fluid intake and activity to promote better bowel motility. Low FODMAP diet. Return in 4 months to discuss going for colonoscopy. Patient will call our office if she will have any GI concerning symptoms. She is agreeable to this plan and verbalizes understanding of instructions. She was given the opportunity to ask questions and all questions answered. Thank you for allowing me to participate in her care Coding Level of Care Code Est Pt Level 3 (23689) Diagnoses Chronic idiopathic constipation K59.04 Irritable bowel syndrome with constipation K58.1 Irritable bowel syndrome type: with constipation Postprandial abdominal bloating R14.0 Left lower quadrant abdominal pain R10.32 Abdominal location: left lower quadrant Time Spent (min) 25 Comment 15 minutes spent with patient and additional 10 minutes spent reviewing her records
== END 2024-03-05 10:16 | disposition home or self-care (01) ==
PROVIDERS: PCP Internal Medicine; Visit Provider Nurse Practitioner Family
DX: K59.04 Chronic idiopathic constipation (principal); K58.1 Irritable bowel syndrome with constipation; R14.0 Abdominal distension (gaseous); R10.32 Left lower quadrant pain
CPT/HCPCS: 99213

== ENCOUNTER → 2024-03-05 09:49 | Outpatient (BNVA) | payer MEDICARE, SELFPAY | PROVIDERS: PCP Internal Medicine; Visit Provider Nurse Practitioner Family | DX: K59.04 Chronic idiopathic constipation (principal); K58.1 Irritable bowel syndrome with constipation; R14.0 Abdominal distension (gaseous); R10.32 Left lower quadrant pain | CPT/HCPCS: 99212 ==

== ENCOUNTER 2024-03-20 10:49 | Outpatient (REF) | payer MEDICARE, SELFPAY ==
[2024-03-22 22:09] LABS: Lyme Abs Screen <0.90 index
== END 2024-03-20 10:50 | disposition home or self-care (01) ==
LOC: HO.HMGCLDS 10:49
PROVIDERS: PCP Internal Medicine; Visit Provider Nurse Practitioner Family
DX: R21 Rash and other nonspecific skin eruption (principal)
CPT/HCPCS: 36415; 86617; 86618; 99212

== ENCOUNTER 2024-04-19 09:36 | Outpatient (REF) | payer MEDICARE, SELFPAY ==
[2024-04-19 11:09] LABS: Alanine Aminotransferase 12 U/L (0-31); Anion Gap 11 (12-20); Aspartate Amino Transferase 20 U/L (5-31); Blood Urea Nitrogen 13 mg/dL (9-16); Calcium 9.5 mg/dL (8.4-10.2); Carbon Dioxide 28 mmol/L (22-29); Chloride 106 mmol/L (96-108); Cholesterol 151 mg/dL (<200); Estimated Glomerular Filt Rate > 60; Glucose Fasting 101 mg/dL (60-99); HDL Cholesterol 51 mg/dL (>40); LDL Cholesterol Calculated 82 mg/dL (<100); Potassium 4.2 mmol/L (3.3-5.1); Sodium 141 mmol/L (135-145); Triglycerides 93 mg/dL (<150)
[2024-04-19 11:29] LABS: Vitamin D 25-OH Total 55.6 ng/mL (>30)
== END 2024-04-19 09:37 | disposition home or self-care (01) ==
LOC: HO.10HDL 09:36
PROVIDERS: Visit Provider Internal Medicine
DX: M81.0 Age-related osteoporosis without current pathological fracture (principal); E78.5 Hyperlipidemia, unspecified
CPT/HCPCS: 36415; 80048; 80061; 82306; 84450; 84460

== ENCOUNTER 2024-04-27 10:22 | Outpatient (AMB) | payer MEDICARE, SELFPAY ==
[2024-04-27 10:58] VITALS: BP 112/72; PULSE 99; RESP 16; TEMP 36.8; O2SAT 100; BMI 22.9
--- NOTE | 2024-04-27 10:58 | A.OFFPC_ITS ---
Vital Signs 04/27/24 10:58 Height 5 ft 2 in Weight 125 lb BMI 22.9 BP 112/72 Blood Pressure Location Rt brachial Position Sitting Respiration 16 Pulse 99 Pulse Source Pulse Oximeter Temp 98.2 F Temp Source Oral Pulse Oximetry (%) 100 Intake Visit Reasons: 4m follow up Intake Note: Pt is here today for her 4mo. f/u Allergies oxycodone Allergy (Intermediate, Verified 04/27/24 11:09) Migraine Penicillins [PENICILLINS] Allergy (Intermediate, Verified 04/27/24 11:09) HIVES prednisone Allergy (Intermediate, Verified 04/27/24 11:09) yeast infection influenza virus vaccine, specific [FLU VACCINE] Allergy (Unknown, Verified 04/27/24 11:09) PT DEVELOPED SOB AND LOCAL SWELLING THIS YR metronidazole [From Flagyl] Adverse Reaction (Verified 04/27/24 11:09) severe diarrhea, Medication List - Last Reconciled 04/27/24 by Lizzie Lantigua MD atorvastatin 10 mg PO DAILY cholecalciferol (vitamin D3) 50 mcg PO DAILY cyclobenzaprine 10 mg PO BEDTIME docusate sodium 200 mg (2 x 100 mg) PO BEDTIME lidocaine 4% 1 patch topical BID PRN linaclotide (Linzess) 290 mcg PO QAM magnesium oxide 400 mg PO DAILY Tobacco use date assessed: 04/27/24 Fall risk assessment: No Falls in past year Last assessed Fall Risk: 04/27/24 Dental Screening Dental Screen Date: 04/27/24 Did you have a dental visit in the last 12 months?: No Did you have a dental problem in the last 6 months where you did not have access to dental care?: No Was dental information given to patient?: Patient declined HPI 4m follow up HPI Details 70-year-old lady here today for follow-up on her lipids, she is currently taking atorvastatin 10 mg daily, has been compliant with diet, but not much regular exercise done. 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 Elevated blood pressure reading Tobacco use disorder, mild, abuse Mammogram declined Immunization declined Tubular adenoma Smoker History of nephrolithiasis Lumbar disc herniation Hearing loss Osteopenia of multiple sites Vitamin D deficiency Surgical History History of fusion of cervical spine History of lumbar discectomy History of cataract extraction Hx of colonoscopy Family History Father Cancer Mother Diabetes mellitus Sister Brain cancer Social History Housing: House Alcohol intake: former Patient Tobacco Use Status: Current everyday Tobacco user Cigarettes Per Day: 3 Years Smoked: 50 e-Cigarette/Vaping Use: Never Used service: No Current occupational status: retired Cognitive needs: No Hearing needs: Yes Vision needs: Yes Questionnaire PHQ-9 Over the last 2 weeks, how often have you been bothered by any of the following problems? 1. Little interest or pleasure in doing things: not at all 2. Feeling down, depressed, or hopeless: not at all 3. Trouble falling or staying asleep, or sleeping too much: not at all 4. Feeling tired or having little energy: not at all 5. Poor appetite or overeating: not at all 6. Feeling bad about yourself - or that you are a failure or have let yourself or your family down: not at all 7. Trouble concentrating on things, such as reading the newspaper or watching television: not at all 8. Moving or speaking so slowly that other people could have noticed. Or the opposite - being so fidgety or restless that you have been moving around a lot more than usual: not at all 9. Thoughts that you would be better off or of hurting yourself in some way: not at all Total score: 0 Depression Screening Interpretation: Negative Depression Screening Done: Yes 70614 - PHQ-9 Billing: Yes Source: Developed by Drs. Huy Junior, Marika Maurer, Dion Wright and colleagues, with an educational joselyn from [employer]. Thrive Questionnaire Date Thrive assessed: 04/27/24 I am a: Patient What is your living situation today?: I have a steady place to live Within the past 12 months, did the food you bought not last and you didn't have the money to get more?: Never true Within the past 12 months, did you worry whether your food would run out before you got money to buy more?: Never true Do you have trouble paying for medicines?: No Do you have trouble getting transportation to medical appointments?: No Do you have trouble paying your heating and electricity bill?: No Do you have trouble taking care of your child, family member or friend?: No Do you have trouble with day-to-day activities such as bathing, preparing meals, shopping, managing finances, etc.?: No Are you currently unemployed and looking for a job?: No Are you interested in more education?: No Please select the resources that you would like help with: None Currently or been in a relationship where the following occur: No concerns reported THRIVE Score: 0 AUDIT C Alcohol Use Questionnaire (AUDIT-C) 1. How often do you have a drink containing alcohol?: Never Total Score: 0 CAROLIN-7 AMB Questionnaire CAROLIN-7 Date CAROLIN - 7 assessed: 04/27/24 Feeling nervous, anxious, or on edge: 0 = Not at all Not being able to stop or control worryin = Not at all Worrying too much about different things: 0 = Not at all Trouble relaxin = Not at all Being so restless that it is hard to sit still: 0 = Not at all Becoming easily annoyed or irritable: 0 = Not at all Feeling afraid as if something awful might happen: 0 = Not at all Total CAROLIN-7 score (0-4 normal; 5-9 mild; 10-14 moderate; 15-21 severe): 0 Source: Developed by Drs. Huy Junior, Marika Maurer, Dion Wright and colleagues, with an educational joselyn from [employer]. CAROLIN-7 Assessment Billing ACROLIN-7 Assessment Tool: CAROLIN-7 Assessment 36992 Review of Systems Const All systems reviewed & are unremarkable except as noted in HPI and below Physical exam (Primary Care) Vital Signs: Last Vital Signs Temp 98.2 F 04/27/24 10:58 Pulse 99 04/27/24 10:58 Resp 16 04/27/24 10:58 BP 112/72 04/27/24 10:58 Pulse Ox 100 04/27/24 10:58 BMI result Body Mass Index 22.9 Tobacco/Smoking Status: Tobacco use Status Tobacco use date assessed 04/27/24 04/27/24 11:04 Patient Tobacco Use Status Current everyday Tobacco 04/27/24 11:04 e-Cigarette/Vaping Use Never Used 04/27/24 11:04 PHQ-9: PHQ-9 Score PHQ-9: Total score 0 04/27/24 11:11 Depression Screening Interpretation: Negative Thrive Assessment: Date of Thrive Assessment Date Thrive assessed 04/27/24 04/27/24 11:04 Currently or been in a relationship where the following occur: No concerns reported Const Other: Alert oriented x3, no acute cardiorespiratory distress noted, ambulatory with normal gait HENMT Head: Yes normocephalic Ears: hearing grossly impaired General nose exam: Normal external nose present Face and sinus: Yes face symmetric Mouth: Normal oral and palatal mucosa present and moist mucous membranes Eyes General: appearance normal, both eyes and all related structures Neck Other: Supple with no lymphadenopathy, thyroid gland nonpalpable Resp Auscultation: clear to auscultation bilaterally Cardio Other: S1-S2 present regular rate and rhythm GI Inspection: Yes normal to inspection Palpation (GI): Soft to palpation, nontender, no guarding and no masses Auscultation: normal bowel sounds Back/Spine/Pelvis Thoracic/Lumbar Spine: straight leg raise negative bilaterally and thoraco- lumbar spasm Skin Other: Scaly slightly erythematous patch on left knee Neuro General: gait normal, tone normal, moves all extremities, Normal light touch and pain sensation, no focal motor deficits and CN's II-XI intact bilaterally Extrem General: Yes full ROM, Yes no joint enlargement and Yes no clubbing, cyanosis or edema Results Reviewed Results Reviewed: Name: Marah Sanchez Age/Sex: 78/F : 1945 Unit#: [id number] Attend Dr: Lizzie Lantigua MD Re04/19/24 Status: DEP REF Location: [address] Disch: SPEC : [id number] FROILAN: 04/19/24 STATUS: COMP REQ : [id number] RECD: 04/19/[address]: Lizzie Lantigua MD COMP: 04/19/24-1129 ENTERED: 04/19/24-[address]: ORDERED: Met Prof Fast, AST, ALT, Lipid Panel, Vitamin D 25-OH Test Result Flag Reference Sodium 141 135-145 mmol/L Potassium 4.2 3.3-5.1 mmol/L CL 106 96-108 mmol/L CO2 28 22-29 mmol/L Gap 11 L 12-20 BUN 13 9-16 mg/dL Creat 0.69 0.5-1.4 mg/dL eGFR > 60 Chronic Kidney Disease: Estimated GFR < 60 mL/min/1.73m2 Severe Kidney Disease: Estimated GFR < 15 mL/min/1.73m2 FBS 101 H 60-99 mg/dL A fasting glucose from 100-125 mg/dl is considered impaired (pre-diabetes). CA 9.5 8.4-10.2 mg/dL AST (GOT) 20 5-31 U/L ALT (GPT) 12 0-31 U/L Triglyceride 93 <150 mg/dL Desirable Triglyceride: less than 150 mg/dL Borderline High Triglyceride 150-199 mg/dL High Triglyceride: 200-499 mg/dL Very High Triglyceride: greater than or equal to 5OO mg/dL Cholesterol 151 <200 mg/dL Desirable Cholesterol: less than 200 mg/dL Borderline High Cholesterol: 200-239 mg/dL High Cholesterol: greater than 239 mg/dL LDL Calculated 82 <100 mg/dL Desirable LDL: less than 100 mg/dL Near Optimal/Above Optimal LDL: 110-129 mg/dL Borderline High LDL: 130-159 mg/dL High LDL: 160-189 mg/dL Very High LDL: greater than or equal to 190 mg/dL HDL 51 >40 mg/dL Desirable HDL: greater than 40 mg/dL Note: This HDL assay may give artificially low results in patients with liver disease. Vit D 25-OH Tot 55.6 >30 ng/mL Health Based Reference Values* < 20 ng/mL Deficient 20-30 ng/mL Insufficient > 30 ng/mL Sufficient Coding Level of Care Code Est Pt Level 4 (70588) Complex EM visit Add On G2211 Diagnoses Dyslipidemia E78.5 Smoker unmotivated to quit F17.200 Tubular adenoma D36.9 Eczema L30.9 Additional Codes PHQ-9 - 41401 - PHQ-9 Billing: Yes ([id number]) CAROLIN-7 Assessment Billing - CAROLIN-7 Assessment Tool: CAROLIN-7 Assessment 24105 ([id number]) Assessment & Plan Assessment & Plan (1) Dyslipidemia: Code(s): E78.5 - Hyperlipidemia, unspecified Category: Medical Plan: Latest fasting labs showed lipids within normal limits, continued on atorvastatin 10 mg daily. Repeat fasting lipids again in six-month (2) Smoker unmotivated to quit: Code(s): F17.200 - Nicotine dependence, unspecified, uncomplicated Category: Social Hx Plan: Patient strongly advised to stop smoking, as smoking damages blood vessels, degenerative of joints and spine, damage to lungs and heart., predisposes to developing certain cancers like lung, breast, bladder, colon. Recommended to try decreasing cigarette use by 1-2 cigarettes a day. Advised to monitor what triggers are for smoking so that this can be discussed on the next office visit. We can discuss different options to quit smoking when ready. (3) Tubular adenoma: Code(s): D36.9 - Benign neoplasm, unspecified site Category: Medical Plan: Has a follow-up appointment already with GI scheduled (4) Eczema: Code(s): L30.9 - Dermatitis, unspecified Plan: Prescription was sent for triamcinolone acetonide 0.1% to be applied sparingly to affected area on left knee twice a day for no more than 10 days. Orders: Orders Complete Blood Count Auto Diff 10/25/24 D36.9 - Benign neoplasm, unspecified site, E78.5 - Hyperlipidemia, unspecified, F17.200 - Nicotine dependence, unspecified, uncomplicated, M81.0 - Age-related osteoporosis without current pathological fracture Lipid Panel 10/25/24 D36.9 - Benign neoplasm, unspecified site, E78.5 - Hyperlipidemia, unspecified, F17.200 - Nicotine dependence, unspecified, uncomplicated, M81.0 - Age-related osteoporosis without current pathological fracture Alanine Aminotransferase 10/25/24 D36.9 - Benign neoplasm, unspecified site, E78.5 - Hyperlipidemia, unspecified, F17.200 - Nicotine dependence, unspecified, uncomplicated, M81.0 - Age-related osteoporosis without current pathological fracture Aspartate Amino Transferase 10/25/24 D36.9 - Benign neoplasm, unspecified site, E78.5 - Hyperlipidemia, unspecified, F17.200 - Nicotine dependence, unspecified, uncomplicated, M81.0 - Age-related osteoporosis without current pathological fracture Vitamin D 25-OH Total 10/25/24 D36.9 - Benign neoplasm, unspecified site, E78.5 - Hyperlipidemia, unspecified, F17.200 - Nicotine dependence, unspecified, uncomplicated, M81.0 - Age-related osteoporosis without current pathological fracture Medications: Refilled triamcinolone acetonide 0.1% Apply sparingly to affected area on left knee twice a day for no more than 10 days 1 appl topical BID 10 days 15 grams 0RF L28.2 - Other prurigo atorvastatin 10 mg PO DAILY 90 tabs 3RF E78.5 - Hyperlipidemia, unspecified
== END 2024-04-27 11:24 | disposition home or self-care (01) ==
PROVIDERS: PCP Internal Medicine; Visit Provider Internal Medicine
DX: E78.5 Hyperlipidemia, unspecified (principal); F17.200 Nicotine dependence, unspecified, uncomplicated; D36.9 Benign neoplasm, unspecified site; L30.9 Dermatitis, unspecified

== ENCOUNTER → 2024-04-27 10:22 | Outpatient (BNVA) | payer MEDICARE, SELFPAY | PROVIDERS: PCP Internal Medicine; Visit Provider Internal Medicine | DX: E78.5 Hyperlipidemia, unspecified (principal); D36.9 Benign neoplasm, unspecified site; L30.9 Dermatitis, unspecified; F17.200 Nicotine dependence, unspecified, uncomplicated | CPT/HCPCS: 96127; 99212 ==

== ENCOUNTER 2024-05-19 10:02 | Outpatient (AMB) | payer MEDICARE, SELFPAY ==
--- NOTE | 2024-05-19 10:10 | MHC.OFFVIS ---
Vital Signs 05/19/24 10:22 Height 5 ft 2 in Weight 123 lb 0.287 oz BMI 22.5 BP 128/72 Blood Pressure Location Rt brachial Position Sitting Pulse 82 Pulse Source Pulse Oximeter Pulse Oximetry (%) 96 Oxygen Delivery Method Room Air Intake Visit Reasons: f/u IBS Intake Note: ESTABLISHED PATIENT for IBS/CIC mgmt. Discuss colo per Leanne. Chief Complaint; Pt denies any GI sx or concerns at this time. Sx are well controlled with current regimen. 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 Accompanied by: Self / Same As Patient Allergies oxycodone Allergy (Intermediate, Verified 05/19/24 10:18) Migraine Penicillins [PENICILLINS] Allergy (Intermediate, Verified 05/19/24 10:18) HIVES prednisone Allergy (Intermediate, Verified 05/19/24 10:18) yeast infection influenza virus vaccine, specific [FLU VACCINE] Allergy (Unknown, Verified 05/19/24 10:18) PT DEVELOPED SOB AND LOCAL SWELLING THIS YR metronidazole [From Flagyl] Adverse Reaction (Verified 05/19/24 10:18) severe diarrhea, HPI HPI f/u IBS: Details: LAST VISIT: Chronic idiopathic constipation IBS (irritable bowel syndrome) Postprandial abdominal bloating Abdominal pain Plan Continue current management with Linzess in the morning and magnesium at night time. Patient will continue increase fluid intake and activity to promote better bowel motility. Low FODMAP diet. Return in 4 months to discuss going for colonoscopy. Patient will call our office if she will have any GI concerning symptoms. She is agreeable to this plan and verbalizes understanding of instructions. She was given the opportunity to ask questions and all questions answered. ? TODAY'S VISIT Patient is here today for follow-up. Patient reports that since last visit she has been doing fairly well. Takes Linzess in the morning and Dulcolax in the afternoon. Patient started taking magnesium and reports that she has a bowel movement every morning. Patient is asking to move her colonoscopy to the end of the year as she has been taking care of her sister now. Her sister was diagnosed with lung cancer and she is driving her to all of her appointment. Patient also is taking care of her who has been disabled. Patient denies any GI concerning symptoms. Reports that she has been feeling well. Reports to have good appetite. 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 Elevated blood pressure reading Tobacco use disorder, mild, abuse Mammogram declined Immunization declined Tubular adenoma Smoker History of nephrolithiasis Lumbar disc herniation Hearing loss Osteopenia of multiple sites Vitamin D deficiency Surgical History History of fusion of cervical spine History of lumbar discectomy History of cataract extraction Hx of colonoscopy Family History Father Cancer Mother Diabetes mellitus Sister Brain cancer Social History Housing: House Alcohol intake: former Patient Tobacco Use Status: Current everyday Tobacco user Cigarettes Per Day: 3 Years Smoked: 50 e-Cigarette/Vaping Use: Never Used service: No Current occupational status: retired Cognitive needs: No Hearing needs: Yes Vision needs: Yes Review of Systems Const Denies weight gain and Denies weight loss ENT Reports no additional complaints, Denies dysphagia and Denies odynophagia Card Reports no additional complaints Resp Reports no additional complaints GI Denies abdominal pain, Denies belching, Denies melena, Reports bloating (Occasional), Denies change in bowel habits, Denies dysphagia, Denies excessive flatus, Denies dyspepsia, Denies heartburn, Denies diarrhea, Denies loose stools, Denies nausea, Denies odynophagia and Denies vomiting Musc Reports no additional complaints Neuro Reports no additional complaints Psych Reports no additional complaints Endo Reports no additional complaints Physical Exam Vital Signs: Last Vital Signs Pulse 82 05/19/24 10:22 BP 128/72 05/19/24 10:22 Pulse Ox 96 05/19/24 10:22 Oxygen Delivery Method Room Air 05/19/24 10:22 BMI result Body Mass Index 22.5 Const General: healthy appearing, no acute distress and well developed Nutritional Appearance: well nourished Orientation/consciousness: patient oriented x3 Resp Effort & Inspection: normal respiratory effort, able to speak in complete sentences, no tracheal deviation and symmetric chest movement Auscultation: clear to auscultation bilaterally Cardio Rate: regular rate GI Inspection: Yes normal to inspection and No distended Palpation (GI): Soft to palpation, not firm, nontender and No hepatosplenomegaly present Auscultation: normal bowel sounds General: Yes no CVA tenderness Back/Spine/Pelvis Back: no CVA tenderness Skin General skin exam: elasticity normal, turgor normal and dry skin Neuro General: patient oriented x3 Psych Appearance: grossly normal Mental Status: mental status grossly normal Assessment & Plan Assessment & Plan (1) Chronic idiopathic constipation: Code(s): K59.04 - Chronic idiopathic constipation (2) IBS (irritable bowel syndrome): Code(s): K58.9 - Irritable bowel syndrome, unspecified Qualifiers: Irritable bowel syndrome type: with constipation Qualified Code(s): K58.1 - Irritable bowel syndrome with constipation (3) Postprandial abdominal bloating: Code(s): R14.0 - Abdominal distension (gaseous) (4) Abdominal pain: Code(s): R10.9 - Unspecified abdominal pain Qualifiers: Abdominal location: left lower quadrant Qualified Code(s): R10.32 - Left lower quadrant pain Plan: Pain is suppressed at this time. Patient is moving her bowels well Plan Patient will continue current treatment. Patient will take Linzess and Dulcolax in the evening as well as magnesium oxide at bedtime. Increase fluid intake and activity to promote better bowel motility. Patient will report in 6 months, sooner on as needed basis. She will call our office if she will have any GI concerning symptoms. She is agreeable to current plan of care and verbalizes understanding of instructions. She was given the opportunity to ask questions and all questions answered. Thank you for allowing me to participate in her care Medications: New magnesium oxide 400 mg PO DAILY 90 tabs 2RF Refilled docusate sodium 200 mg (2 x 100 mg) PO BEDTIME 180 caps 3RF linaclotide (Linzess) 290 mcg PO QAM 30 caps 4RF K59.00 - Constipation, unspecified Coding Level of Care Code Est Pt Level 3 (56061) Diagnoses Chronic idiopathic constipation K59.04 Irritable bowel syndrome with constipation K58.1 Irritable bowel syndrome type: with constipation Postprandial abdominal bloating R14.0 Left lower quadrant abdominal pain R10.32 Abdominal location: left lower quadrant Time Spent (min) 25 Comment 15 minutes spent with patient and additional 10 minutes spent reviewing her records
[2024-05-19 10:22] VITALS: BP 128/72; PULSE 82; O2SAT 96; BMI 22.5
== END 2024-05-19 10:53 | disposition home or self-care (01) ==
LOC: HO.HGI 10:03
PROVIDERS: PCP Internal Medicine; Visit Provider Nurse Practitioner Family
DX: K59.04 Chronic idiopathic constipation (principal); K58.1 Irritable bowel syndrome with constipation; R14.0 Abdominal distension (gaseous); R10.32 Left lower quadrant pain
CPT/HCPCS: 99213

== ENCOUNTER → 2024-05-19 10:02 | Outpatient (BNVA) | payer MEDICARE, SELFPAY | PROVIDERS: PCP Internal Medicine; Visit Provider Nurse Practitioner Family | DX: K59.04 Chronic idiopathic constipation (principal); K58.1 Irritable bowel syndrome with constipation; R14.0 Abdominal distension (gaseous); R10.32 Left lower quadrant pain | CPT/HCPCS: 99212 ==

== ENCOUNTER 2024-11-16 10:55 | Outpatient (AMB) | payer MEDICARE, SELFPAY ==
[2024-11-16 11:23] VITALS: BP 122/90; PULSE 80; RESP 16; TEMP 36.7; O2SAT 98; BMI 23.8
--- NOTE | 2024-11-16 11:23 | A.OFFPC_ITS ---
Vital Signs 11/16/24 11:23 Height 5 ft 2 in Weight 130 lb BMI 23.8 BP 122/90 H Blood Pressure Location Lt brachial Position Sitting Respiration 16 Pulse 80 Pulse Source Pulse Oximeter Temp 98.1 F Temp Source Oral Pulse Oximetry (%) 98 Oxygen Delivery Method Room Air Intake Visit Reasons: 6 months f/up Intake Note: . Allergies oxycodone Allergy (Intermediate, Verified 11/16/24 11:28) Migraine Penicillins (PENICILLINS) Allergy (Intermediate, Verified 11/16/24 11:28) HIVES prednisone Allergy (Intermediate, Verified 11/16/24 11:28) yeast infection influenza virus vaccine, specific (FLU VACCINE) Allergy (Unknown, Verified 11/16/24 11:28) PT DEVELOPED SOB AND LOCAL SWELLING THIS YR metronidazole (From Flagyl) Adverse Reaction (Verified 11/16/24 11:28) severe diarrhea, Medication List - Last Reconciled 11/16/24 by Lizzie Lantigua MD ascorbate calcium (vitamin C) 500 mg PO DAILY atorvastatin 10 mg PO DAILY cholecalciferol (vitamin D3) 50 mcg PO DAILY docusate sodium 200 mg (2 x 100 mg) PO BEDTIME linaclotide (Linzess) 290 mcg PO QAM magnesium oxide 400 mg PO DAILY triamcinolone acetonide 0.1% 1 appl topical BID 10 days Tobacco use date assessed: 11/16/24 Fall risk assessment: No Falls in past year Last assessed Fall Risk: 11/16/24 Dental Screening Dental Screen Date: 11/16/24 Did you have a dental visit in the last 12 months?: No Did you have a dental problem in the last 6 months where you did not have access to dental care?: No Was dental information given to patient?: Patient declined HPI 6 months f/up HPI Details 79-year-old lady with history of dyslipi demia, chronic constipation, here today for her follow-up. She is currently on atorvastatin 10 mg daily with normal fasting lipids when checked last March 2024. Has been compliant with healthy eating habits but admits to not getting much exercise lately. Linzess and docusate sodium has been helping regulate her bowel movements. 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 Elevated blood pressure reading Tobacco use disorder, mild, abuse Mammogram declined Immunization declined Tubular adenoma Smoker History of nephrolithiasis Lumbar disc herniation Hearing loss Osteopenia of multiple sites Vitamin D deficiency Surgical History (Updated 11/22/24 @ 00:57 by Lizzie Lantigua MD) History of fusion of cervical spine History of lumbar discectomy History of cataract extraction Hx of colonoscopy Family History Father Cancer Mother Diabetes mellitus Sister Brain cancer Social History Housing: House Alcohol intake: former Patient Tobacco Use Status: Former Tobacco user Cigarettes Per Day: 3 Years Smoked: 50 e-Cigarette/Vaping Use: Never Used service: No Current occupational status: retired Cognitive needs: No Hearing needs: Yes Vision needs: Yes Questionnaire PHQ-9 Over the last 2 weeks, how often have you been bothered by any of the following problems? 1. Little interest or pleasure in doing things: not at all 2. Feeling down, depressed, or hopeless: not at all 3. Trouble falling or staying asleep, or sleeping too much: not at all 4. Feeling tired or having little energy: not at all 5. Poor appetite or overeating: not at all 6. Feeling bad about yourself - or that you are a failure or have let yourself or your family down: not at all 7. Trouble concentrating on things, such as reading the newspaper or watching television: not at all 8. Moving or speaking so slowly that other people could have noticed. Or the opposite - being so fidgety or restless that you have been moving around a lot more than usual: not at all 9. Thoughts that you would be better off or of hurting yourself in some way: not at all Total score: 0 Depression Screening Interpretation: Negative Depression Screening Done: Yes Source: Developed by Drs. Huy Junior, Marika Maurer, Dion Wright and colleagues, with an educational joselyn from [employer]. Thrive Questionnaire Date Thrive assessed: 04/27/24 I am a: Patient What is your living situation today?: I have a steady place to live Within the past 12 months, did the food you bought not last and you didn't have the money to get more?: Never true Within the past 12 months, did you worry whether your food would run out before you got money to buy more?: Never true Do you have trouble paying for medicines?: No Do you have trouble getting transportation to medical appointments?: No Do you have trouble paying your heating and electricity bill?: No Do you have trouble taking care of your child, family member or friend?: No Do you have trouble with day-to-day activities such as bathing, preparing meals, shopping, managing finances, etc.?: No Are you currently unemployed and looking for a job?: No Are you interested in more education?: No Please select the resources that you would like help with: None Currently or been in a relationship where the following occur: No concerns reported THRIVE Score: 0 AUDIT C Alcohol Use Questionnaire (AUDIT-C) 1. How often do you have a drink containing alcohol?: Never Total Score: 0 CAROLIN-7 AMB Questionnaire CAROLIN-7 Date CAROLIN - 7 assessed: 04/27/24 Feeling nervous, anxious, or on edge: 0 = Not at all Not being able to stop or control worryin = Not at all Worrying too much about different things: 0 = Not at all Trouble relaxin = Not at all Being so restless that it is hard to sit still: 0 = Not at all Becoming easily annoyed or irritable: 0 = Not at all Feeling afraid as if something awful might happen: 0 = Not at all Total CAROLIN-7 score (0-4 normal; 5-9 mild; 10-14 moderate; 15-21 severe): 0 Source: Developed by Drs. Huy Junior, Marika Maurer, Dion Wright and colleagues, with an educational joselyn from [employer]. Review of Systems Const All systems reviewed & are unremarkable except as noted in HPI and below Eyes Denies change in vision ENT Reports as per HPI Card Reports no additional complaints Resp Reports no additional complaints GI Denies abdominal pain, Denies melena, Denies change in bowel habits, Denies excessive flatus, Denies heartburn and Denies nausea Reports no additional complaints Musc Reports no additional complaints Neuro Reports no additional complaints Psych Reports no additional complaints Endo Reports no additional complaints Physical exam (Primary Care) Vital Signs: Last Vital Signs Temp 98.1 F 11/16/24 11:23 Pulse 80 11/16/24 11:23 Resp 16 11/16/24 11:23 BP 122/90 H 11/16/24 11:23 Pulse Ox 98 11/16/24 11:23 Oxygen Delivery Method Room Air 11/16/24 11:23 BMI result Body Mass Index 23.8 Tobacco/Smoking Status: Tobacco use Status Tobacco use date assessed 11/16/24 11/16/24 11:29 Patient Tobacco Use Status Former Tobacco user 11/16/24 11:29 e-Cigarette/Vaping Use Never Used 11/16/24 11:29 PHQ-9: PHQ-9 Score PHQ-9: Total score 0 11/16/24 11:49 Depression Screening Interpretation: Negative Thrive Assessment: Date of Thrive Assessment Date Thrive assessed 04/27/24 11/16/24 11:29 Currently or been in a relationship where the following occur: No concerns reported Const Orientation/consciousness: patient oriented x3 HENMT Other: Dry flaky skin on pinna on both ears, no ear discharge or cerumen seen, tympanic membrane intact Neck Neck: Yes full ROM, Yes no lymphadenopathy and Yes supple Resp Auscultation: clear to auscultation bilaterally Cardio Other: S1-S2 present regular rate and rhythm GI Other: Normal bowel sounds, soft, nontender with no mass palpated Neuro General: patient oriented x3, gait normal, tone normal, moves all extremities and no focal motor deficits Extrem General: Yes full ROM, Yes no joint enlargement and Yes normal gait Psych Appearance: grossly normal and well kempt Mental Status: mental status grossly normal Speech and movement: Normal speech and movement present Affect: normal affect Coding Level of Care Code Est Pt Level 4 (32066) Complex EM visit Add On G2211 Diagnoses Eczema of both external ears H60.543 Dyslipidemia E78.5 Osteoporosis of lumbar spine M81.0 Assessment & Plan Assessment & Plan (1) Eczema of both external ears: Code(s): H60.543 - Acute eczematoid otitis externa, bilateral Category: Medical Plan: Advised to try a applying a thin layer of cortisone 10 cream to pinna in both (2) Dyslipidemia: Code(s): E78.5 - Hyperlipidemia, unspecified Category: Medical Plan: Fasting lipid panel ordered, continue atorvastatin 10 mg daily in addition to adhering to healthy eating habits and getting regular exercise. (3) Osteoporosis of lumbar spine: Code(s): M81.0 - Age-related osteoporosis without current pathological fracture Category: Medical Plan: Patient declines further treatment. Advised to stay active, do regular weight- bearing exercise, continue taking vitamin-D 3 supplements and adequate calcium from dietary sources.
== END 2024-11-16 12:14 | disposition home or self-care (01) ==
LOC: HO.HMCC 10:56
PROVIDERS: PCP Internal Medicine; Visit Provider Internal Medicine
DX: H60.543 Acute eczematoid otitis externa, bilateral (principal); E78.5 Hyperlipidemia, unspecified; M81.0 Age-related osteoporosis without current pathological fracture

== ENCOUNTER → 2024-11-16 10:55 | Outpatient (BNVA) | payer MEDICARE, SELFPAY | PROVIDERS: PCP Internal Medicine; Visit Provider Internal Medicine | DX: M81.0 Age-related osteoporosis without current pathological fracture (principal); E78.5 Hyperlipidemia, unspecified; K59.09 Other constipation; H60.543 Acute eczematoid otitis externa, bilateral; Z79.899 Other long term (current) drug therapy | CPT/HCPCS: 96127; 99212 ==

== ENCOUNTER 2024-11-30 13:40 | Outpatient (AMB) | payer MEDICARE, SELFPAY ==
--- NOTE | 2024-11-30 13:43 | A.OFFPC_ITS ---
Vital Signs 11/30/24 14:18 Height 5 ft 2 in Weight 133 lb BMI 24.3 BP 130/90 H Blood Pressure Location Lt brachial Position Sitting Respiration 16 Pulse 91 Pulse Source Pulse Oximeter Temp 98.1 F Temp Source Oral Pulse Oximetry (%) 98 Oxygen Delivery Method Room Air Intake Visit Reasons: Lump under arm Intake Note: Pt is here today c/o lump under Rt under arm Allergies oxycodone Allergy (Intermediate, Verified 12/01/24 12:51) Migraine Penicillins (PENICILLINS) Allergy (Intermediate, Verified 12/01/24 12:51) HIVES prednisone Allergy (Intermediate, Verified 12/01/24 12:51) yeast infection influenza virus vaccine, specific (FLU VACCINE) Allergy (Unknown, Verified 12/01/24 12:51) PT DEVELOPED SOB AND LOCAL SWELLING THIS YR metronidazole (From Flagyl) Adverse Reaction (Verified 12/01/24 12:51) severe diarrhea, Medication List - Last Reconciled 12/01/24 by Lizzie Lantigua MD ascorbate calcium (vitamin C) 500 mg PO DAILY atorvastatin 10 mg PO DAILY cholecalciferol (vitamin D3) 50 mcg PO DAILY docusate sodium 200 mg (2 x 100 mg) PO BEDTIME linaclotide (Linzess) 290 mcg PO QAM magnesium oxide 400 mg PO DAILY triamcinolone acetonide 0.1% 1 appl topical BID 10 days Tobacco use date assessed: 11/30/24 Fall risk assessment: No Falls in past year Last assessed Fall Risk: 11/30/24 Dental Screening Dental Screen Date: 11/16/24 Did you have a dental visit in the last 12 months?: No Did you have a dental problem in the last 6 months where you did not have access to dental care?: No Was dental information given to patient?: Patient has dentist HPI Lump under arm HPI Details 79-year-old lady here today complaining of a painful lump that she palpated on outer aspect of her right breast 2 days ago while taking a shower patient states that this is the 1st time that she has felt anything on her breast. No history of any trauma to affected area. She has stopped doing any mammogram screenings in the past, declined to get it done. She also has a skin lesion on her left supraclavicular area that keeps getting snagged with her neckace , states it occasionally bleeds when caught in her jewelry. This has been present now for the last month and is not healing completely. 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 Elevated blood pressure reading Tobacco use disorder, mild, abuse Mammogram declined Immunization declined Tubular adenoma Smoker History of nephrolithiasis Lumbar disc herniation Hearing loss Osteopenia of multiple sites Vitamin D deficiency Surgical History History of fusion of cervical spine History of lumbar discectomy History of cataract extraction Hx of colonoscopy Family History Father Cancer Mother Diabetes mellitus Sister Brain cancer Social History Housing: House Alcohol intake: former Patient Tobacco Use Status: Former Tobacco user Cigarettes Per Day: 3 Years Smoked: 50 e-Cigarette/Vaping Use: Never Used service: No Current occupational status: retired Cognitive needs: No Hearing needs: Yes Vision needs: Yes Questionnaire PHQ-9 Over the last 2 weeks, how often have you been bothered by any of the following problems? 1. Little interest or pleasure in doing things: not at all 2. Feeling down, depressed, or hopeless: not at all 3. Trouble falling or staying asleep, or sleeping too much: not at all 4. Feeling tired or having little energy: not at all 5. Poor appetite or overeating: not at all 6. Feeling bad about yourself - or that you are a failure or have let yourself or your family down: not at all 7. Trouble concentrating on things, such as reading the newspaper or watching television: not at all 8. Moving or speaking so slowly that other people could have noticed. Or the opposite - being so fidgety or restless that you have been moving around a lot more than usual: not at all 9. Thoughts that you would be better off or of hurting yourself in some way: not at all Total score: 0 Depression Screening Interpretation: Negative Depression Screening Done: Yes Source: Developed by Drs. Marika Garcia Kurt Kroenke and colleagues, with an educational joselyn from [employer]. Thrive Questionnaire Date Thrive assessed: 04/27/24 I am a: Patient What is your living situation today?: I have a steady place to live Within the past 12 months, did the food you bought not last and you didn't have the money to get more?: Never true Within the past 12 months, did you worry whether your food would run out before you got money to buy more?: Never true Do you have trouble paying for medicines?: No Do you have trouble getting transportation to medical appointments?: No Do you have trouble paying your heating and electricity bill?: No Do you have trouble taking care of your child, family member or friend?: No Do you have trouble with day-to-day activities such as bathing, preparing meals, shopping, managing finances, etc.?: No Are you currently unemployed and looking for a job?: No Are you interested in more education?: No Please select the resources that you would like help with: None Currently or been in a relationship where the following occur: No concerns reported THRIVE Score: 0 AUDIT C Alcohol Use Questionnaire (AUDIT-C) 1. How often do you have a drink containing alcohol?: Never Total Score: 0 CAROLIN-7 AMB Questionnaire CAROLIN-7 Date CAROLIN - 7 assessed: 04/27/24 Feeling nervous, anxious, or on edge: 0 = Not at all Not being able to stop or control worryin = Not at all Worrying too much about different things: 0 = Not at all Trouble relaxin = Not at all Being so restless that it is hard to sit still: 0 = Not at all Becoming easily annoyed or irritable: 0 = Not at all Feeling afraid as if something awful might happen: 0 = Not at all Total CAROLIN-7 score (0-4 normal; 5-9 mild; 10-14 moderate; 15-21 severe): 0 Source: Developed by Drs. Huy Junior, Dion Sue and colleagues, with an educational joselyn from [employer]. Review of Systems Const All systems reviewed & are unremarkable except as noted in HPI and below Physical exam (Primary Care) Vital Signs: Last Vital Signs Temp 98.1 F 11/30/24 14:18 Pulse 91 11/30/24 14:18 Resp 16 11/30/24 14:18 BP 130/90 H 11/30/24 14:18 Pulse Ox 98 11/30/24 14:18 Oxygen Delivery Method Room Air 11/30/24 14:18 BMI result Body Mass Index 24.3 Tobacco/Smoking Status: Tobacco use Status Tobacco use date assessed 11/30/24 11/30/24 13:46 Patient Tobacco Use Status Former Tobacco user 11/30/24 13:46 e-Cigarette/Vaping Use Never Used 11/30/24 13:46 PHQ-9: PHQ-9 Score PHQ-9: Total score 0 11/30/24 14:55 Depression Screening Interpretation: Negative Thrive Assessment: Date of Thrive Assessment Date Thrive assessed 04/27/24 11/30/24 13:46 Currently or been in a relationship where the following occur: No concerns reported Const Orientation/consciousness: patient oriented x3 Neck Neck: Yes full ROM, Yes no lymphadenopathy and Yes supple Chest Other: Slightly tender palpable mass on outer aspect of right breast at 11 o'clock position measuring approximately 3 cm in widest diameter, no nipple discharge Resp Auscultation: clear to auscultation bilaterally Cardio Other: S1-S2 present regular rate and rhythm GI Other: Normal bowel sounds, soft, nontender with no mass palpated Skin Other: Slightly raised hyperpigmented lesion on left supraclavicular area with no active bleeding noted Neuro General: patient oriented x3, gait normal, tone normal, moves all extremities and no focal motor deficits Extrem General: Yes full ROM, Yes no joint enlargement and Yes normal gait Coding Level of Care Code Est Pt Level 4 (90505) Diagnoses Large mass of breast N63.0 Pigmented skin lesion of uncertain behavior of neck L81.9 Skin cancer screening Z12.83 Assessment & Plan Assessment & Plan (1) Large mass of breast: Code(s): N63.0 - Unspecified lump in unspecified breast Category: Medical Plan: Ordered stat breast ultrasound of right breast and bilateral diagnostic mammogram. Will refer to general surgeon as soon as mammogram and ultrasound results are in (2) Pigmented skin lesion of uncertain behavior of neck: Code(s): L81.9 - Disorder of pigmentation, unspecified Plan: Stat referral to [facility] ordered (3) Skin cancer screening: Code(s): Z12.83 - Encounter for screening for malignant neoplasm of skin Plan: Referred to dermatology for further evaluation manage Orders: Orders US breast RT complete 11/30/24 N63.0 - Unspecified lump in unspecified breast MM tomosynthesis diagnostic BI 11/30/24 N63.0 - Unspecified lump in unspecified breast Referrals Dermatology Referral L81.9 - Disorder of pigmentation, unspecified, Z12.83 - Encounter for screening for malignant neoplasm of skin
[2024-11-30 14:18] VITALS: BP 130/90; PULSE 91; RESP 16; TEMP 36.7; O2SAT 98; BMI 24.3
== END 2024-11-30 15:00 | disposition home or self-care (01) ==
PROVIDERS: PCP Internal Medicine; Visit Provider Internal Medicine
DX: N63.0 Unspecified lump in unspecified breast (principal); L81.9 Disorder of pigmentation, unspecified; Z12.83 Encounter for screening for malignant neoplasm of skin

== ENCOUNTER → 2024-11-30 13:40 | Outpatient (BNVA) | payer MEDICARE, SELFPAY | PROVIDERS: PCP Internal Medicine; Visit Provider Internal Medicine | DX: N63.10 Unspecified lump in the right breast, unspecified quadrant (principal); L81.9 Disorder of pigmentation, unspecified | CPT/HCPCS: 96127; 99212 ==

== ENCOUNTER 2024-12-13 07:28 | Outpatient (REF) | payer MEDICARE, SELFPAY ==
--- NOTE | ~2024-12-13 | US_ITS ---
EXAMINATION: MM DIAGNOSTIC DIGITAL BREAST TOMOSYNTHESIS, BILATERAL Limited right breast ultrasound. CLINICAL INFORMATION: Palpable right breast lump upper outer quadrant for 3 weeks. This is the patient's baseline mammogram. COMPARISON: Mammography: Baseline mammography. TECHNIQUE: Digital breast mammography with tomosynthesis is performed in both the craniocaudal and mediolateral oblique views along with computer-aided detection (CAD). FINDINGS: The breasts are heterogeneously dense, which may obscure small masses. Left: There are no significant masses, abnormal calcifications, or other abnormalities. BB marker in the upper outer quadrant with an underlying solid irregular mass with irregular pleomorphic calcifications within the mass. No suspicious other abnormal findings. Targeted color Doppler ultrasound scanning in the area the patient's palpable lump at 10:00 11 cm from the nipple demonstrates a solid irregular mass measuring 20 x 18 x 19 mm which correlates with the irregular mass on mammography and palpable lump. Targeted color Doppler ultrasound scanning in the low axillary region demonstrates an enlarged irregular lymph node at 10:00 15 cm from the nipple with cortical thickening measuring up to 16 mm. Results are provided to the patient at time of visit by the technologist. US/US Breast RT Limited Mamm Only IMPRESSION: Left: Negative. Right: 1. Solid irregular mass in the upper outer quadrant on ultrasound at 10:00 11 cm from the nipple. 2. Irregular enlarged low axillary lymph node at 10:00 15 cm from the nipple. Recommend histology of both areas with ultrasound-guided core needle biopsy. The findings and recommendations were discussed with the patient the procedures will be scheduled. ASSESSMENT: BI-RADS Category 4: Suspicious RECOMMENDATION: Biopsy recommended Electronically signed by: Luh Delacruz DO 12/13/2024 11:16 AM EDT
--- OUTSIDE RECORDS SUMMARY | 2024-12-13 07:31 | XMS_ITS ---
Author Organization Unknown ENCOUNTERS Encounter Performer Location Date Diagnosis Diagnosis Status Emergency [facility] [address] [place] [address] [id number] CRISTINA Pre Admit Generic ED Physician [facility] [address] [place] [address] [id number] Emergency [facility] [address] [place] [address] [id number] CRISTINA Pre Admit [facility] [address] [place] [address] [id number] Emergency [facility] [address] [place] [address] [id number] CRISTINA Pre Admit [facility] [address] [place] [address] [id number] Outpatient [facility] [address] [place] [address] [id number] CRISTINA Emergency [facility] [address] [place] [address] [id number] CRISTINA Emergency [facility] [address] [place] [address] [id number] CRISTINA *Note: Encounters from your own facility or health system may be excluded. Allergies, Adverse Reactions, Alerts Allergen Type Severity Identification Date prednisone drug allergy 3 40402525 oxycodone drug allergy 3 [id number] influenza virus vaccine, specific drug allergy [id number] metronidazole drug allergy [id number] Medications Name Date Quantity Days Supplied [facility] Number
== END 2024-12-13 07:29 | disposition home or self-care (01) ==
LOC: HO.MAMMO 07:28
PROVIDERS: PCP Internal Medicine; Visit Provider Internal Medicine
DX: N63.11 Unspecified lump in the right breast, upper outer quadrant (principal)
CPT/HCPCS: 76642; 77062; 77066

== ENCOUNTER → 2024-12-13 09:10 | Outpatient (BNV) | payer MEDICARE, SELFPAY | PROVIDERS: PCP Internal Medicine; Visit Provider Internal Medicine | DX: N63.11 Unspecified lump in the right breast, upper outer quadrant (principal) | CPT/HCPCS: 76642; 77066; G0279 ==

== ENCOUNTER 2024-12-21 08:34 | Outpatient (AMB) | payer MEDICARE, SELFPAY ==
--- NOTE | 2024-12-21 08:40 | MHC.OFFVIS ---
Vital Signs 12/21/24 08:41 Height 5 ft 2 in Weight 134 lb BMI 24.5 BP 154/80 H Blood Pressure Location Rt brachial Position Sitting Pulse 111 H Intake Visit Reasons: US BX (R) brst 10 o'clock mass and node axilla Intake Note: Patient is seen in office for ultrasound biopsy CONSULT right breast 10 o'clock mass and node. Patient c/o: lump sore when pressing on it. Denies nipple discharge. No personal or family hx of breast CA. 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 Accompanied by: Self / Same As Patient Allergies oxycodone Allergy (Intermediate, Verified 12/21/24 08:49) Migraine Penicillins (PENICILLINS) Allergy (Intermediate, Verified 12/21/24 08:49) HIVES prednisone Allergy (Intermediate, Verified 12/21/24 08:49) yeast infection influenza virus vaccine, specific (FLU VACCINE) Allergy (Unknown, Verified 12/21/24 08:49) PT DEVELOPED SOB AND LOCAL SWELLING THIS YR metronidazole (From Flagyl) Adverse Reaction (Verified 12/21/24 08:49) severe diarrhea, Medication List - Last Reconciled 12/21/24 by Kristopher Banegas MD ascorbate calcium (vitamin C) 500 mg PO DAILY atorvastatin 10 mg PO DAILY cholecalciferol (vitamin D3) 50 mcg PO DAILY docusate sodium 200 mg (2 x 100 mg) PO BEDTIME linaclotide (Linzess) 290 mcg PO QAM magnesium oxide 400 mg PO DAILY triamcinolone acetonide 0.1% 1 appl topical BID 10 days HPI Comments Details: 79-year-old female patient presenting with a palpable mass noted on self-examination several months ago. The lump is located in the right breast in the upper outer quadrant and does cause discomfort when clothing puts pressure on the lump. She denies a previous history of breast problems or breast surgery. Her family history is negative for breast cancer or ovarian cancer. Her menarche was at age 14. She is 2 para 2 and her last period was at the age of 42. She denies hormone replacement therapy. Workup with mammogram and ultrasound performed on 12/13/2024 revealed a solid irregular mass in the upper outer quadrant on ultrasound at the 10 o'clock position 11 cm from the nipple. In a regular enlarged low axillary lymph node at the 10 o'clock position 15 cm from the nipple was also identified. These were felt to be suspicious for malignancy (BI-RADS 4) an ultrasound-guided biopsy of both lesions recommended. [facility] is [facility] Patient is currently caring for her who was losing weight after colon surgery. 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 Elevated blood pressure reading Tobacco use disorder, mild, abuse Mammogram declined Immunization declined Tubular adenoma Smoker History of nephrolithiasis Lumbar disc herniation Hearing loss Osteopenia of multiple sites Vitamin D deficiency Surgical History History of fusion of cervical spine History of lumbar discectomy History of cataract extraction Hx of colonoscopy Family History Father Cancer Mother Diabetes mellitus Sister Brain cancer Social History Housing: House Alcohol intake: former Patient Tobacco Use Status: Former Tobacco user Cigarettes Per Day: 3 Years Smoked: 50 e-Cigarette/Vaping Use: Never Used service: No Current occupational status: retired Cognitive needs: No Hearing needs: Yes Vision needs: Yes Female Reproductive History Menstrual Age of Menarche: 14 Review of Systems Const All systems reviewed & are unremarkable except as noted in HPI and below Physical Exam Const General: cooperative and no acute distress Nutritional Appearance: well nourished Orientation/consciousness: patient oriented x3 Limitations: no limitations HEENT Head: Yes normocephalic and Yes atraumatic Ears: hearing grossly normal bilaterally Chest Other: Left breast: No skin change, no nipple retraction, no nipple discharge, no palpable mass, no enlarged lymph nodes. Right breast: No skin change, no nipple retraction, no nipple discharge, large palpable mass noted in the upper outer quadrant extending up towards the axilla which is tender to palpation. Lesion measures at least 2 cm in diameter. A tender enlarged lymph node is also noted the low axilla. No other suspicious masses are appreciated. The palpable mass is mobile within the breast tissue without fixation to the skin or chest wall. Chest/axillae images:  1. Site of palpable mass right breast Resp Effort & Inspection: normal respiratory effort, no audible wheezes, no cough and no respiratory distress Cardio Jugular venous distension: no JVD GI Inspection: Yes normal to inspection Skin Other: Warm, dry, no rash Neuro Other: Mobility Assessment: 1. 3 meter assessment time (seconds): 5 2. Gait observations: Normal balance and gait General: patient oriented x3 Extrem General: Yes no clubbing, cyanosis or edema Results Reviewed Results Reviewed: Mammogram right breast: Assessment & Plan Assessment & Plan (1) Large mass of breast: Code(s): N63.0 - Unspecified lump in unspecified breast Category: Medical (2) Abnormal ultrasound of breast: Code(s): R92.8 - Other abnormal and inconclusive findings on diagnostic imaging of breast Category: Medical Plan 79-year-old female patient presenting with a right breast mass in the upper outer quadrant noted on self-examination. The patient notes some discomfort with clothing rubbing against the lump. On examination the patient does have a 2 cm palpable mass with an enlarged lymph node in the upper outer quadrant. This was confirmed on mammogram and ultrasound performed on 12/13/2024. Ultrasound-guided core biopsy of the lymph node and breast mass is scheduled for later today at the [facility]. I recommended the patient return in approximately 1 week to review the pathology results and discuss treatment options. She expressed understanding and agrees with the plan. Patient has indicated that if this is cancer she is not interested in either chemotherapy or radiation therapy. Orders: Orders US breast ndl core biopsy RT Today N63.0 - Unspecified lump in unspecified breast, R59.0 - Localized enlarged lymph nodes, R92.8 - Other abnormal and inconclusive findings on diagnostic imaging of breast US breast ndl core bio ea add Today N63.0 - Unspecified lump in unspecified breast, R59.0 - Localized enlarged lymph nodes, R92.8 - Other abnormal and inconclusive findings on diagnostic imaging of breast Coding Level of Care Code New Pt Level 4 (91653) Diagnoses Large mass of breast N63.0 Abnormal ultrasound of breast R92.8
[2024-12-21 08:41] VITALS: BP 154/80; PULSE 111; BMI 24.5
== END 2024-12-21 09:05 | disposition home or self-care (01) ==
LOC: HO.HGS 08:35
PROVIDERS: PCP Internal Medicine; Visit Provider Surgery
DX: N63.0 Unspecified lump in unspecified breast (principal); R92.8 Other abnormal and inconclusive findings on diagnostic imaging of breast
CPT/HCPCS: 99204

== ENCOUNTER 2024-12-21 09:09 | Outpatient (REF) | payer MEDICARE, SELFPAY ==
--- NOTE | ~2024-12-21 | US_ITS ---
EXAMINATION/PROCEDURE: 1. ULTRASOUND GUIDED CORE BIOPSY BREAST, RIGHT 2. ULTRASOUND-GUIDED FINE-NEEDLE ASPIRATION OF RIGHT AXILLARY LYMPH NODE 3. POST PROCEDURE DIGITAL MAMMOGRAM, RIGHT CLINICAL INFORMATION: Patient is status post mammogram/ultrasound workup on December 13, 2024 for right breast palpable concern. An ultrasound-guided needle core biopsy was recommended for a right breast mass located at 10 o'clock position 11 cm from the nipple measuring 2.0 x 1.9 x 1.8 cm and low axillary lymph node at 10 o'clock position 15 cm from the nipple. After discussion with Dr. Banegas, it was decided to proceed with fine-needle aspiration of the left lower axillary lymph node with clip placement. COMPARISON: Mammogram/ultrasound on December 13, 2024. FINDINGS: Proper informed consent is obtained from the patient after discussion of the procedure, potential risks and complications, and alternatives. Patient was given an opportunity for questions. The patient appeared to understand. The patient consented to the procedure and signed the consent form. 1. Ultrasound-guided needle core biopsy of the right breast mass GUIDANCE: Ultrasound-guided; aseptic technique. LESION: Solid mass measuring 2.0 x 1.8 x 1.7 cm at 10 o'clock position at 11 cm from the nipple. APPROACH: Lateral. ANESTHESIA: 11 cc of lidocaine 1% buffered with Sodium Bicarbonate 8.4% (9ml:1ml ratio). NEEDLE: 14-gauge Bard Marquee biopsy device with co-axial introducer. CORES: 3. CLIP: HydroMARK; shape: butterfly. 2. Ultrasound-guided fine-needle aspiration of the right low axillary lymph node Enlarged lymph node in the lower axilla at 10 o'clock position 15 cm from the nipple was aspirated using ultrasound guidance and 3 separate 25-gauge hypodermic needles. The specimen was placed in CytoLyt container and sent for cytologic analysis. CLIP: HydroMARK; shape: open coil. POST PROCEDURE UNILATERAL DIGITAL MAMMOGRAM: The post biopsy mammogram is performed in separate room using separate digital mammography equipment from the biopsy procedure. ML 90 degrees, MLO and XCCL views are obtained. The butterfly shape clip marker is in satisfactory position within the targeted mass. Additional clip marker is identified in the lower part of the the partially included right axillary lymph node, presumably open coil shape. No gross hematoma. The patient tolerated the procedure well. No immediate complications. Home instructions reviewed with the patient. Final pathology results are pending. US/US breast ndl core bio ea add IMPRESSION: 1. Status post ultrasound-guided core biopsy right breast solid mass at 10 o'clock position at 10 cm from the nipple. Clip placed: HydroMARK; shape: butterfly. 2. Status post ultrasound-guided fine-needle aspiration of the right lower axillary lymph node at 10 o'clock position at 15 cm from the nipple. Clip placed: HydroMARK; shape: open coil. 3. Pathology pending. An addendum report will be issued. ASSESSMENT: BI-RADS: Post Procedure Mammograms for Marker Placement RECOMMENDATION: Awaiting Pathology Results Electronically signed by: Stella Skaggs MD 12/21/2024 12:53 PM EDT
[2024-12-21] MEDS: Lidocaine HCl 1 % 20 ML VIAL 18 ML SUBCUT (12:04)
== END 2024-12-21 09:10 | disposition home or self-care (01) ==
LOC: HO.MAMMO 09:09
PROVIDERS: PCP Internal Medicine; Visit Provider Surgery
DX: R59.0 Localized enlarged lymph nodes (principal); R92.8 Other abnormal and inconclusive findings on diagnostic imaging of breast; N63.12 Unspecified lump in the right breast, upper inner quadrant
CPT/HCPCS: 19083; 19084; 77062; 77065; 88173; 88305; 88342; 88360; 88374; 99202; A4648; J2003

== ENCOUNTER → 2024-12-21 10:00 | Outpatient (BNV) | payer MEDICARE, SELFPAY | PROVIDERS: PCP Internal Medicine; Visit Provider Radiology Body Imaging | DX: C50.411 Malignant neoplasm of upper-outer quadrant of right female breast (principal); C50.611 Malignant neoplasm of axillary tail of right female breast | CPT/HCPCS: 10005; 19083; 77065 ==

== ENCOUNTER 2024-12-28 11:28 | Outpatient (AMB) | payer MEDICARE, SELFPAY ==
--- NOTE | 2024-12-28 11:35 | MHC.OFFVIS ---
Vital Signs 12/28/24 11:41 Height 5 ft 2 in Weight 136 lb BMI 24.9 BP 148/76 H Blood Pressure Location Lt brachial Position Sitting Pulse 116 H Intake Visit Reasons: follow up Us brst BX Intake Note: Patient is seen in office ultrasound biopsy RESULTS, right breast 10 o'clock mass and node. 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 Accompanied by: Self / Same As Patient Allergies oxycodone Allergy (Intermediate, Verified 12/28/24 11:42) Migraine Penicillins (PENICILLINS) Allergy (Intermediate, Verified 12/28/24 11:42) HIVES prednisone Allergy (Intermediate, Verified 12/28/24 11:42) yeast infection influenza virus vaccine, specific (FLU VACCINE) Allergy (Unknown, Verified 12/28/24 11:42) PT DEVELOPED SOB AND LOCAL SWELLING THIS YR metronidazole (From Flagyl) Adverse Reaction (Verified 12/28/24 11:42) severe diarrhea, Medication List - Last Reconciled 12/29/24 by Kristopher Banegas MD ascorbate calcium (vitamin C) 500 mg PO DAILY atorvastatin 10 mg PO DAILY cholecalciferol (vitamin D3) 50 mcg PO DAILY docusate sodium 200 mg (2 x 100 mg) PO BEDTIME linaclotide (Linzess) 290 mcg PO QAM magnesium oxide 400 mg PO DAILY triamcinolone acetonide 0.1% 1 appl topical BID 10 days HPI Comments Details: 79-year-old female patient presenting with a palpable mass noted on self-examination several months ago. The lump is located in the right breast in the upper outer quadrant and does cause discomfort when clothing puts pressure on the lump. She denies a previous history of breast problems or breast surgery. Her family history is negative for breast cancer or ovarian cancer. Her menarche was at age 14. She is 2 para 2 and her last period was at the age of 42. She denies hormone replacement therapy. Workup with mammogram and ultrasound performed on 12/13/2024 revealed a solid irregular mass in the upper outer quadrant on ultrasound at the 10 o'clock position 11 cm from the nipple. In a regular enlarged low axillary lymph node at the 10 o'clock position 15 cm from the nipple was also identified. These were felt to be suspicious for malignancy (BI-RADS 4) an ultrasound-guided biopsy of both lesions recommended. She underwent a ultrasound-guided core biopsy of the right breast mass and axillary lymph node on 12/21/2024. Pathology revealed an invasive ductal carcinoma with lobular features, grade 2-3, ER/GA positive, HER2 Jairo equivocal (FISH pending), Ki-67 high. The lymph node biopsy was positive for metastatic breast cancer. (cT1c N1). Pathology results were discussed in detail with the patient today. I recommended patient be evaluated by Medical Oncology for consideration of neoadjuvant chemotherapy. Patient reports her sister underwent chemo and radiation therapy and she absolutely refuses to be evaluated by Medical or Radiation Oncology. 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 Elevated blood pressure reading Tobacco use disorder, mild, abuse Mammogram declined Immunization declined Tubular adenoma Smoker History of nephrolithiasis Lumbar disc herniation Hearing loss Osteopenia of multiple sites Vitamin D deficiency Surgical History History of fusion of cervical spine History of lumbar discectomy History of cataract extraction Hx of colonoscopy Family History Father Cancer Mother Diabetes mellitus Sister Brain cancer Social History Housing: House Alcohol intake: former Patient Tobacco Use Status: Former Tobacco user Cigarettes Per Day: 3 Years Smoked: 50 e-Cigarette/Vaping Use: Never Used service: No Current occupational status: retired Cognitive needs: No Hearing needs: Yes Vision needs: Yes Female Reproductive History Menstrual Age of Menarche: 14 Review of Systems Const All systems reviewed & are unremarkable except as noted in HPI and below Physical Exam Vital Signs: Last Vital Signs Pulse 116 H 12/28/24 11:41 BP 148/76 H 12/28/24 11:41 BMI result Body Mass Index 24.9 Const General: cooperative and no acute distress Nutritional Appearance: well nourished Orientation/consciousness: patient oriented x3 Limitations: no limitations HEENT Head: Yes normocephalic and Yes atraumatic Ears: hearing grossly normal bilaterally Chest Other: Left breast: No skin change, no nipple retraction, no nipple discharge, no palpable mass, no enlarged lymph nodes. Right breast: No skin change, no nipple retraction, no nipple discharge, large palpable mass noted in the upper outer quadrant extending up towards the axilla which is tender to palpation. Lesion measures at least 2 cm in diameter. A tender enlarged lymph node is also noted the low axilla. No other suspicious masses are appreciated. The palpable mass is mobile within the breast tissue without fixation to the skin or chest wall. Resp Effort & Inspection: normal respiratory effort, no audible wheezes, no cough and no respiratory distress Cardio Jugular venous distension: no JVD GI Inspection: Yes normal to inspection Skin Other: Warm, dry, no rash Neuro Other: Mobility Assessment: 1. 3 meter assessment time (seconds): 5 2. Gait observations: Normal balance and gait General: patient oriented x3 Extrem General: Yes no clubbing, cyanosis or edema Assessment & Plan Assessment & Plan (1) Invasive ductal carcinoma of right breast, stage 2: Code(s): C50.911 - Malignant neoplasm of unspecified site of right female breast Category: Medical Plan 79-year-old female patient presenting with a palpable mass in the right breast upper outer quadrant with the associated pain. On examination she is noted to have a 2 cm mass in the upper outer quadrant with enlarged lymph node palpable in the low axilla. She subsequently underwent ultrasound-guided core biopsy which confirmed an invasive ductal carcinoma with lobular features, grade 2-3, ER/GA positive, HER2 Jairo equivocal, Ki-67 high. As noted above I recommended medical oncology evaluation for potential neoadjuvant chemotherapy. She absolutely refuses to be seen by radiation or Medical Oncology and has refused on multiple occasions to undergo chemotherapy due to her sister's experience. She wishes to proceed directly to surgery and understands that she may be at high risk for recurrence both local and distant. She expressed understanding but wishes to leave this ?up to God. ? We discussed performing a right breast lumpectomy (partial mastectomy) with localizer as well as a right axillary lymph node dissection. We discussed the need for the localizer clip were both the affected lymph node and to issa the tumor site which would be performed at the [facility]. After discussion of the procedure, risks, and alternatives, she consents to the right breast lumpectomy with localizer and right axillary lymph node dissection. This will be scheduled as a short-stay surgery at her earliest convenience. Coding Level of Care Code Est Pt Level 4 (20612) Diagnoses Invasive ductal carcinoma of right breast, stage 2 C50.911
[2024-12-28 11:41] VITALS: BP 148/76; PULSE 116; BMI 24.9
== END 2024-12-28 11:48 | disposition home or self-care (01) ==
LOC: HO.HGS 11:28
PROVIDERS: PCP Internal Medicine; Visit Provider Surgery
DX: C50.911 Malignant neoplasm of unspecified site of right female breast (principal)
CPT/HCPCS: 99214

== ENCOUNTER → 2024-12-28 11:28 | Outpatient (BNVA) | payer MEDICARE, SELFPAY | PROVIDERS: PCP Internal Medicine; Visit Provider Surgery | DX: C50.411 Malignant neoplasm of upper-outer quadrant of right female breast (principal) | CPT/HCPCS: 99212 ==

== ENCOUNTER 2025-01-05 09:24 | Outpatient (REF) | payer MEDICARE, SELFPAY ==
--- NOTE | ~2025-01-05 | US_ITS ---
EXAMINATION: Ultrasound GUIDED RFID LOCALIZATION BREAST, RIght breast and Axilla CLINICAL INFORMATION: Right breast mass and Right axillary lymph node both positive for IDC here for tag localization both sites COMPARISON: Priors on PACS. TECHNIQUE NEEDLE LOC: Proper informed consent is obtained from the patient after discussion of the procedure, potential risks and complications, and alternatives including declining the procedure today. Patient was given an opportunity for questions. The patient appeared to understand. The patient consented to the procedure and signed the consent form. Site 1 Right breast 10:00: GUIDANCE: Ultrasound. APPROACH: Irregular breast mass at 10:[address] in [address].. TARGET: Lateral. ANESTHESIA: Carbonated Lidocaine. LOCALIZATION SYSTEM: [employer] LOCallizer Wire-Free Guidance System with 12g needle applicator. RADIOFREQUENCY TAG: ID # [id number] RF Tag ID confirmed with LOCalizer Guidance System prior to placement. The skin is prepped and local anesthesia administered. The needle is positioned and RFID tag deployed. Site 2 Right axillary lymph node: GUIDANCE: Ultrasound. APPROACH: Lateral. TARGET: Enlarged right axillary lymph node with marker clip.. ANESTHESIA: Carbonated Lidocaine. LOCALIZATION SYSTEM: [employer] LOCallizer Wire-Free Guidance System with 12g needle applicator. RADIOFREQUENCY TAG: ID # [id number] RF Tag ID confirmed with LOCalizer Guidance System prior to placement. The skin is prepped and local anesthesia administered. The needle is positioned and RFID tag deployed. Final images demonstrate the LOCalizer RF tag to reside within both the right breast mass at 10:00 and the axillary lymph node adjacent to the marker clips. The patient tolerated the procedure well and had no immediate complications. Dressing placed and home instructions reviewed. US/US Breast RF Tag Device Addl IMPRESSION: -Status post right breast RFID localization two sites. Electronically signed by: Luh Delacruz DO 01/05/2025 11:16 AM [facility]
--- NOTE | ~2025-01-05 | MM_ITS ---
EXAMINATION: Ultrasound GUIDED RFID LOCALIZATION BREAST, RIght breast and Axilla CLINICAL INFORMATION: Right breast mass and Right axillary lymph node both positive for IDC here for tag localization both sites COMPARISON: Priors on PACS. TECHNIQUE NEEDLE LOC: Proper informed consent is obtained from the patient after discussion of the procedure, potential risks and complications, and alternatives including declining the procedure today. Patient was given an opportunity for questions. The patient appeared to understand. The patient consented to the procedure and signed the consent form. Site 1 Right breast 10:00: GUIDANCE: Ultrasound. APPROACH: Irregular breast mass at 10:[address] in [address].. TARGET: Lateral. ANESTHESIA: Carbonated Lidocaine. LOCALIZATION SYSTEM: [employer] LOCallizer Wire-Free Guidance System with 12g needle applicator. RADIOFREQUENCY TAG: ID # [id number] RF Tag ID confirmed with LOCalizer Guidance System prior to placement. The skin is prepped and local anesthesia administered. The needle is positioned and RFID tag deployed. Site 2 Right axillary lymph node: GUIDANCE: Ultrasound. APPROACH: Lateral. TARGET: Enlarged right axillary lymph node with marker clip.. ANESTHESIA: Carbonated Lidocaine. LOCALIZATION SYSTEM: [employer] LOCallizer Wire-Free Guidance System with 12g needle applicator. RADIOFREQUENCY TAG: ID # [id number] RF Tag ID confirmed with LOCalizer Guidance System prior to placement. The skin is prepped and local anesthesia administered. The needle is positioned and RFID tag deployed. Final images demonstrate the LOCalizer RF tag to reside within both the right breast mass at 10:00 and the axillary lymph node adjacent to the marker clips. The patient tolerated the procedure well and had no immediate complications. Dressing placed and home instructions reviewed. MM/MM tomosynthesis diagnostic RT IMPRESSION: -Status post right breast RFID localization two sites. Electronically signed by: Luh Delacruz DO 01/05/2025 11:16 AM [facility]
--- NOTE | ~2025-01-05 | US_ITS ---
EXAMINATION: Ultrasound GUIDED RFID LOCALIZATION BREAST, RIght breast and Axilla CLINICAL INFORMATION: Right breast mass and Right axillary lymph node both positive for IDC here for tag localization both sites COMPARISON: Priors on PACS. TECHNIQUE NEEDLE LOC: Proper informed consent is obtained from the patient after discussion of the procedure, potential risks and complications, and alternatives including declining the procedure today. Patient was given an opportunity for questions. The patient appeared to understand. The patient consented to the procedure and signed the consent form. Site 1 Right breast 10:00: GUIDANCE: Ultrasound. APPROACH: Irregular breast mass at 10:[address] clip in [address].. TARGET: Lateral. ANESTHESIA: Carbonated Lidocaine. LOCALIZATION SYSTEM: [employer] LOCallizer Wire-Free Guidance System with 12g needle applicator. RADIOFREQUENCY TAG: ID # [id number] RF Tag ID confirmed with LOCalizer Guidance System prior to placement. The skin is prepped and local anesthesia administered. The needle is positioned and RFID tag deployed. Site 2 Right axillary lymph node: GUIDANCE: Ultrasound. APPROACH: Lateral. TARGET: Enlarged right axillary lymph node with marker clip.. ANESTHESIA: Carbonated Lidocaine. LOCALIZATION SYSTEM: [employer] LOCallizer Wire-Free Guidance System with 12g needle applicator. RADIOFREQUENCY TAG: ID # [id number] RF Tag ID confirmed with LOCalizer Guidance System prior to placement. The skin is prepped and local anesthesia administered. The needle is positioned and RFID tag deployed. Final images demonstrate the LOCalizer RF tag to reside within both the right breast mass at 10:00 and the axillary lymph node adjacent to the marker clips. The patient tolerated the procedure well and had no immediate complications. Dressing placed and home instructions reviewed. US/US Breast RF Tag Device Right IMPRESSION: -Status post right breast RFID localization two sites. Electronically signed by: Luh Delacruz DO 01/05/2025 11:16 AM [facility]
[2025-01-05] MEDS: Lidocaine HCl 1 % 20 ML VIAL SUBCUT (10:51)
== END 2025-01-05 09:25 | disposition home or self-care (01) ==
LOC: HO.MAMMO 09:24
PROVIDERS: PCP Internal Medicine; Visit Provider Surgery
DX: C50.911 Malignant neoplasm of unspecified site of right female breast (principal); R59.0 Localized enlarged lymph nodes
CPT/HCPCS: 19285; 19286; 77061; 77065; C1819; J2003

== ENCOUNTER → 2025-01-05 10:30 | Outpatient (BNV) | payer MEDICARE, SELFPAY | PROVIDERS: PCP Internal Medicine; Visit Provider Internal Medicine | DX: N63.11 Unspecified lump in the right breast, upper outer quadrant (principal); N63.31 Unspecified lump in axillary tail of the right breast; R59.0 Localized enlarged lymph nodes | CPT/HCPCS: 19285; 19286; 77065; G0279 ==

== ENCOUNTER 2025-01-07 09:08 | Outpatient (AMB) | payer MEDICARE, SELFPAY ==
[2025-01-07 09:11] VITALS: BP 150/90; PULSE 87; TEMP 36.8; O2SAT 97; BMI 24.9
--- NOTE | 2025-01-07 09:11 | MHC.OFFWIV ---
Intake Vital Signs 01/07/25 09:11 Height 5 ft 2 in Weight 136 lb BMI 24.9 BP 150/90 H Blood Pressure Location Rt brachial Position Sitting Pulse 87 Pulse Source Pulse Oximeter Temp 98.3 F Temp Source Oral Pulse Oximetry (%) 97 Oxygen Delivery Method Room Air Intake Visit Reasons: EP Bilat ear pain/trouble hearing Intake Note: EP complains of bilateral ear block - the left ear started this Friday (she felt pain and sore inside the left ear) while later the right ear blocked as well on Friday. Patient Tobacco Use Status: Former Tobacco user Allergies oxycodone Allergy (Intermediate, Verified 01/07/25 09:25) Migraine Penicillins (PENICILLINS) Allergy (Intermediate, Verified 01/07/25:) HIVES prednisone Allergy (Intermediate, Verified 01/07/25:) yeast infection influenza virus vaccine, specific (FLU VACCINE) Allergy (Unknown, Verified 01/07/25:) PT DEVELOPED SOB AND LOCAL SWELLING THIS YR metronidazole (From Flagyl) Adverse Reaction (Verified 01/07/25:) severe diarrhea, Do you need a note to return to daycare/school/sports/work: No HPI HPI Comments History of Present Illness Details This is a 79-year-old female presenting for evaluation of decreased hearing in her left ear and pain in her right ear that has been evolving over the past 5 days. Patient reportedly has hearing aids but does not utilize them. Patient's ENT physician has retired. Patient denies having any fevers, chills, discharge from her ears or sore throat. Patient has not taken any medication for treatment of her discomfort. 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 Elevated blood pressure reading Tobacco use disorder, mild, abuse Mammogram declined Immunization declined Tubular adenoma Smoker History of nephrolithiasis Lumbar disc herniation Hearing loss Osteopenia of multiple sites Vitamin D deficiency Surgical History History of fusion of cervical spine History of lumbar discectomy History of cataract extraction Hx of colonoscopy Family History Father Cancer Mother Diabetes mellitus Sister Brain cancer Social History Housing: House Alcohol intake: former Patient Tobacco Use Status: Former Tobacco user Cigarettes Per Day: 3 Years Smoked: 50 e-Cigarette/Vaping Use: Never Used service: No Current occupational status: retired Cognitive needs: No Hearing needs: Yes Vision needs: Yes Female Reproductive History Menstrual Age of Menarche: 14 Review of Systems Const All systems reviewed & are unremarkable except as noted in HPI and below Reports no additional complaints Eyes Reports no additional complaints ENT Reports otalgia, Denies sore throat and Denies throat swelling Card Reports no additional complaints Resp Reports no additional complaints GI Reports no additional complaints Musc Reports no additional complaints Skin/Breast Reports system reviewed and no additional complaints, except as documented Neuro Reports no additional complaints Psych Reports no additional complaints Endo Reports no additional complaints Kodi/Lymph Reports no additional complaints Aller/Immun Reports no additional complaints and Denies throat swelling Physical Exam Vital Signs: Last Vital Signs Temp 98.3 F 01/07/25 09:11 Pulse 87 01/07/25 09:11 BP 150/90 H 01/07/25 09:11 Pulse Ox 97 01/07/25 09:11 Oxygen Delivery Method Room Air 01/07/25 09:11 BMI result Body Mass Index 24.9 Const General: cooperative, healthy appearing, comfortable, no acute distress, well developed, alert, awake and Physically active; No lethargic Nutritional Appearance: average body habitus Orientation/consciousness: patient oriented x3 and No lethargic Limitations: no limitations HEENT Head: Yes normal to inspection and Yes normocephalic Ears: hearing grossly abnormal bilaterally (decreased hearing bilaterally; not wearing hearing aids), external ears normal, TM's abnormal bilaterally, TM normal on the right, left TM abnormal (TM is absent in the left ear, no retained foreign body) and EAC's not normal (There is erythema, stenosis and pain to examination of the right ear canal) General nose exam: Normal external nose present Face and sinus: Yes normal facial exam Mouth: Normal oral and palatal mucosa present Throat: Yes posterior oropharynx normal Eyes General: appearance normal, both eyes and all related structures Neuro General: patient oriented x3 Psych Appearance: grossly normal Mental Status: mental status grossly normal Insight: Good insight present (Psych) Judgement: Good judgement present (Psych) Assessment & Plan Assessment & Plan (1) TM (tympanic membrane disorder): Comment: TM is absent in left ear. Patient will follow up with ENT as an outpatient. Code(s): H73.90 - Unspecified disorder of tympanic membrane, unspecified ear Qualifiers: Laterality: left Qualified Code(s): H73.92 - Unspecified disorder of tympanic membrane, left ear Plan: Patient will call ENT to schedule outpatient consultation. Patient is instructed to not use eardrops in the left ear. (2) Otitis externa: Comment: Patient's clinical presentation warrants antibiotic therapy. Patient will be discharged home with antibiotic ear drops. Code(s): H60.90 - Unspecified otitis externa, unspecified ear Qualifiers: Otitis externa type: other infective Chronicity: acute Laterality: right Qualified Code(s): H60.391 - Other infective otitis externa, right ear Plan: Antibiotic otic drops as prescribed. Medications: New zwcsbllh-yyhsev-FS-thonzonium 3.3-3-10-0.5 mg/mL (Cortisporin-TC) Apply 4gtt QID x 7 days to right ear 4 drps otic (ear) right QID 10 mL 0RF Coding Level of Care Code Est Pt Level 3 (64525) Diagnoses Disorder of tympanic membrane of left ear H73.92 Laterality: left Other infective acute otitis externa of right ear H60.391 Otitis externa type: other infective Chronicity: acute Laterality: right Time Spent (min) 20
== END 2025-01-07 09:46 | disposition home or self-care (01) ==
PROVIDERS: PCP Internal Medicine; Visit Provider Physician Assistant
DX: H73.92 Unspecified disorder of tympanic membrane, left ear (principal); H60.391 Other infective otitis externa, right ear

== ENCOUNTER → 2025-01-07 09:08 | Outpatient (BNVA) | payer MEDICARE, SELFPAY | PROVIDERS: PCP Internal Medicine; Visit Provider Physician Assistant | DX: H73.92 Unspecified disorder of tympanic membrane, left ear (principal); H60.391 Other infective otitis externa, right ear | CPT/HCPCS: 99212 ==

== ENCOUNTER 2025-01-13 10:10 | Outpatient (AMB) | payer MEDICARE, SELFPAY ==
[2025-01-13 10:12] VITALS: BP 162/94; PULSE 68; O2SAT 98; BMI 24.9
--- NOTE | 2025-01-13 10:12 | MHC.OFFWIV ---
Intake Vital Signs 01/13/25 10:12 Height 5 ft 2 in Weight 136 lb BMI 24.9 BP 162/94 H Blood Pressure Location Lt brachial Position Sitting Pulse 68 Pulse Source Pulse Oximeter Temp Source Oral Pulse Oximetry (%) 98 Oxygen Delivery Method Room Air Intake Visit Reasons: EP-lt ear blocked, pain Intake Note: Patient returns c/o left ear pain - patient seen on 01/07 for right ear infection & prescribed ear drops which has gotten better. Patient Tobacco Use Status: Former Tobacco user Allergies oxycodone Allergy (Intermediate, Verified 01/13/25 10:16) Migraine Penicillins (PENICILLINS) Allergy (Intermediate, Verified 01/13/25 10:16) HIVES prednisone Allergy (Intermediate, Verified 01/13/25 10:16) yeast infection influenza virus vaccine, specific (FLU VACCINE) Allergy (Unknown, Verified 01/13/25 10:16) PT DEVELOPED SOB AND LOCAL SWELLING THIS YR metronidazole (From Flagyl) Adverse Reaction (Verified 01/13/25 10:16) severe diarrhea, Do you need a note to return to daycare/school/sports/work: No HPI HPI Comments History of Present Illness Details 79-year-old female presents with left ear pain for the past few days. She was previously seen in the walk-in clinic for right ear pain and completed a 7-day course of prescribed antibiotic otic drops with improvement of right-sided symptoms. Now reports new/worsening left ear pain and believes she has an infection on that side. Requests additional antibiotic ear drops. Denies fever, chills, headaches, dizziness, hearing loss, otorrhea, nasal congestion, sore throat, or other systemic symptoms. 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 Elevated blood pressure reading Tobacco use disorder, mild, abuse Mammogram declined Immunization declined Tubular adenoma Smoker History of nephrolithiasis Lumbar disc herniation Hearing loss Osteopenia of multiple sites Vitamin D deficiency Surgical History History of fusion of cervical spine History of lumbar discectomy History of cataract extraction Hx of colonoscopy Family History Father Cancer Mother Diabetes mellitus Sister Brain cancer Social History Housing: House Alcohol intake: former Patient Tobacco Use Status: Former Tobacco user Cigarettes Per Day: 3 Years Smoked: 50 e-Cigarette/Vaping Use: Never Used service: No Current occupational status: retired Cognitive needs: No Hearing needs: Yes Vision needs: Yes Female Reproductive History Menstrual Age of Menarche: 14 Review of Systems Const All systems reviewed & are unremarkable except as noted in HPI and below Physical Exam Vital Signs: Last Vital Signs Pulse 68 01/13/25 10:12 BP 162/94 H 01/13/25 10:12 Pulse Ox 98 01/13/25 10:12 Oxygen Delivery Method Room Air 01/13/25 10:12 BMI result Body Mass Index 24.9 Const General: no acute distress Nutritional Appearance: well nourished Orientation/consciousness: patient oriented x3 HEENT Head: Yes normocephalic Ears: external ears normal and TM abnormal bulging on the right and on the left, erythematous bilateral, with fluid behind the TM on the right and on the left, perforated with purulent discharge on the left and retracted on the left General nose exam: Abnormal mucous membranes and turbinates present erythematous Face and sinus: Yes sinuses nontender Mouth: moist mucous membranes Throat: Yes uvula midline Eyes Pupils: Equal, round and reactive pupils present Resp Effort & Inspection: normal respiratory effort Cardio Rate: regular rate Neuro General: patient oriented x3 Cranial nerves: Yes Equal, round and reactive pupils present Assessment & Plan Assessment & Plan (1) Otitis externa of left ear: Code(s): H60.92 - Unspecified otitis externa, left ear Plan: Left Otalgia ? likely Otitis Externa. ? New symptoms after resolving right-sided OE. ? No systemic symptoms at this time. Ordered Similar Otic Abx for the left ear. Added Oral Doxy for 5 days. Keep ear dry; avoid Q-tips/trauma. Analgesia PRN: acetaminophen or ibuprofen if tolerated. Return precautions: worsening pain, fever, drainage, hearing changes, persistent symptoms after treatment. Medications: New doxycycline hyclate 100 mg PO BID 10 caps 0RF 5 days H60.92 - Unspecified otitis externa, left ear Changed From krqvncpk-oglmhe-CT-thonzonium 3.3-3-10-0.5 mg/mL (Cortisporin-TC) Apply 4gtt QID x 7 days to right ear 4 drps otic (ear) right QID 10 mL 0RF H60.92 - Unspecified otitis externa, left ear To xjccpaio-sqlrvb-OE-thonzonium 3.3-3-10-0.5 mg/mL (Cortisporin-TC) Apply 4gtt QID x 7 days to Left ear 4 drps otic (ear) right QID 10 mL 0RF H60.92 - Unspecified otitis externa, left ear Coding Level of Care Code Est Pt Level 4 (38646) Diagnoses Otitis externa of left ear H60.92 Time Spent (min) 20
--- OUTSIDE RECORDS SUMMARY | 2025-01-13 14:55 | XMS_ITS ---
Author Organization Unknown ENCOUNTERS Encounter Performer Location Date Diagnosis Diagnosis Status Emergency [facility] [address] [place] [address] [id number] CRISTINA Pre Admit Generic ED Physician [facility] [address] [place] [address] [id number] Emergency [facility] [address] [place] [address] [id number] CRISTINA Pre Admit [facility] [address] [place] [address] [id number] Emergency [facility] [address] [place] [address] [id number] CRISTINA Pre Admit [facility] [address] [place] [address] [id number] Outpatient [facility] [address] [place] [address] [id number] CRISTINA Emergency [facility] [address] [place] [address] [id number] CRISTINA Emergency [facility] [address] [place] [address] [id number] CRISTINA *Note: Encounters from your own facility or health system may be excluded. Allergies, Adverse Reactions, Alerts Allergen Type Severity Identification Date prednisone drug allergy 3 [id number] oxycodone drug allergy 3 [id number] influenza virus vaccine, specific drug allergy [id number] metronidazole drug allergy [id number] Medications Name Date Quantity Days Supplied [facility] Number
== END 2025-01-13 10:51 | disposition home or self-care (01) ==
PROVIDERS: PCP Internal Medicine; Visit Provider Nurse Practitioner Family
DX: H60.92 Unspecified otitis externa, left ear (principal)

== ENCOUNTER → 2025-01-13 10:10 | Outpatient (BNVA) | payer MEDICARE, SELFPAY | PROVIDERS: PCP Internal Medicine; Visit Provider Nurse Practitioner Family | DX: H60.92 Unspecified otitis externa, left ear (principal) | CPT/HCPCS: 99212 ==

== ENCOUNTER 2025-01-26 06:39 | Day surgery (SDC) | payer MEDICARE, SELFPAY ==
--- NOTE | 2025-01-24 09:42 | HO.ANESPROP2 ---
Documented by User: Ana Finney NP 01/24/25 09:42 HPI - Anesthesia Eval Consult details Narrative: 79yo F for Right Breast Lumpectomy w/LOCalizer, Selby Node Biopsy PMFSH Active Problems Active Problems: All Active Problems Otitis externa of left ear (Acute) Otitis externa (Acute) TM (tympanic membrane disorder) (Acute) Invasive ductal carcinoma of right breast, stage 2 (Acute) Enlarged lymph nodes in armpit (Acute) Abnormal ultrasound of breast (Acute) Large mass of breast (Acute) Back pain (Acute) Eczema of both external ears (Acute) Osteoporosis of lumbar spine (Acute) Mammogram declined (Acute) Immunization declined (Acute) Dyslipidemia (Acute) Hearing loss (Acute) Past Medical History Medical History Otitis externa of left ear Large mass of breast History of adenomatous polyp of colon 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 Elevated blood pressure reading Tobacco use disorder, mild, abuse Mammogram declined Immunization declined Tubular adenoma Smoker History of nephrolithiasis Lumbar disc herniation Hearing loss Osteopenia of multiple sites Vitamin D deficiency Family History Family History Father Cancer Mother Diabetes mellitus Sister Brain cancer Family history of problems with anesthesia: No Surgical History Surgical History History of fusion of cervical spine History of lumbar discectomy History of cataract extraction Hx of colonoscopy History of Problems with Anesthesia: No Social History Social History Housing: House Alcohol intake: former Patient Tobacco Use Status: Former Tobacco user Tobacco use type: Cigarette Cigarettes Per Day: 3 Years Smoked: 50 e-Cigarette/Vaping Use: Never Used Advance Directives: No Advance Directives Information Provided: Yes service: No Current occupational status: retired Cognitive needs: No Hearing needs: Yes Vision needs: Yes Meds Allergies Allergy/AdvReac Type Severity Reaction Status Date / Time influenza virus vaccine, Allergy Intermediate PT Verified 01/26/25 07:33 specific (FLU VACCINE) DEVELOPED SOB AND LOCAL SWELLING THIS YR Penicillins (PENICILLINS) Allergy Intermediate HIVES Verified 01/26/25 07:33 prednisone Allergy Intermediate yeast Verified 01/26/25 07:33 infection vancomycin Allergy Redness of Verified 01/26/25 08:29 Skin metronidazole (From Flagyl) AdvReac Severe severe Verified 01/26/25 07:33 diarrhea oxycodone AdvReac Intermediate Migraine Verified 01/26/25 07:33 Home Medications ?Medication ?Instructions ?Recorded ?Confirmed ?Last Taken ?Type cholecalciferol (vitamin D3) 50 50 mcg PO DAILY 07/06/21 01/26/25 Unknown History mcg (2,000 unit) capsule ascorbate calcium (vitamin C) 500 500 mg PO DAILY 05/19/24 01/26/25 Unknown History mg tablet Assessment and Plan Assessment Anesthesia Assessment: Chart Reviewed Final Anesthetic Review Family History of Problems with Anesthesia: No History of Problems with Anesthesia: No Documented by User: Tobin Powell MD 01/26/25 10:14 PMFSH Past Medical History Medical History Otitis externa of left ear Large mass of breast History of adenomatous polyp of colon 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 Elevated blood pressure reading Tobacco use disorder, mild, abuse Mammogram declined Immunization declined Tubular adenoma Smoker History of nephrolithiasis Lumbar disc herniation Hearing loss Osteopenia of multiple sites Vitamin D deficiency Family History Family History Father Cancer Mother Diabetes mellitus Sister Brain cancer Surgical History Surgical History History of fusion of cervical spine History of lumbar discectomy History of cataract extraction Hx of colonoscopy Social History Social History Housing: House Alcohol intake: former Patient Tobacco Use Status: Former Tobacco user Tobacco use type: Cigarette Cigarettes Per Day: 3 Years Smoked: 50 e-Cigarette/Vaping Use: Never Used Advance Directives: No Advance Directives Information Provided: Yes service: No Current occupational status: retired Cognitive needs: No Hearing needs: Yes Vision needs: Yes Meds Allergies Allergy/AdvReac Type Severity Reaction Status Date / Time influenza virus vaccine, Allergy Intermediate PT Verified 01/26/25 07:33 specific (FLU VACCINE) DEVELOPED SOB AND LOCAL SWELLING THIS YR Penicillins (PENICILLINS) Allergy Intermediate HIVES Verified 01/26/25 07:33 prednisone Allergy Intermediate yeast Verified 01/26/25 07:33 infection vancomycin Allergy Redness of Verified 01/26/25 08:29 Skin metronidazole (From Flagyl) AdvReac Severe severe Verified 01/26/25 07:33 diarrhea oxycodone AdvReac Intermediate Migraine Verified 01/26/25 07:33 Home Medications ?Medication ?Instructions ?Recorded ?Confirmed ?Last Taken ?Type cholecalciferol (vitamin D3) 50 50 mcg PO DAILY 07/06/21 01/26/25 Unknown History mcg (2,000 unit) capsule ascorbate calcium (vitamin C) 500 500 mg PO DAILY 05/19/24 01/26/25 Unknown History mg tablet Exam Exam Date and Time: 01/26/25 Airway Mallampati Class: II TM Dist: >3cm Neck ROM: Full Denture: Upper and Lower Heart: rrr Lungs: ctab vesicular Assessment and Plan Assessment Anesthesia Assessment: Anesthesia Plan Discussed Final Anesthetic Review NPO: Yes ASA Class: II Final Preanesthetic Review: No Changes in Pt Med Stat, Meds/Allgs Chart Reviewed and Consent Obtained/Reviewed Patient Risk: Low Procedure Risk: Low Anesthetic Plan Anesthetic Plan: GA Disposition: Standard PACU
[2025-01-24 10:41] VITALS: BMI 24.9
[2025-01-26] VITALS (13 sets, daily range): BP systolic 136–158; BP diastolic 65–81; PULSE 65–84; RESP 10–20; TEMP 36.1–36.7; O2SAT 97–99; BMI 25.3
--- NOTE | ~2025-01-26 | NM_ITS ---
EXAMINATION: NM LYMPHOSCINTIGRAPHY CLINICAL INFORMATION: Right breast mass. COMPARISON: None. TECHNIQUE: Right breast lymphoscintigraphy injection was performed . Approximately 0.5 mCi of technetium 99m lymphoseek and 0.8 mL of saline was divided into 4 aliquots of approximately 0.125 mCi, and injected in 4 quadrants around the right breast areola intradermally at 12:00, 3:00, 6:00, and 9:00. Immediate images and delayed images were obtained in AP, oblique and lateral views 5 minutes later. FINDINGS: There is isotope activity in four-quadrant around right breast areola following injection. There are at least 3 areas of isotope activity along the right low and mid axilla suggestive of multiple lymph nodes. NM/NM sentinel node w imaging IMPRESSION: At least 3 small lymph nodes seen in right low and mid axilla on right breast lymphoscintigraphy. Thank you for the courtesy of your referral. Electronically signed by: Dima Gamboa MD 01/26/2025 10:31 AM [facility]
--- NOTE | ~2025-01-26 | MM_ITS ---
Right breast specimen radiograph demonstrates the butterfly clip and the tag within the specimen. Right axillary specimen radiograph demonstrates the tag and the coil clip within the specimen. Electronically signed by: Luh Delacruz DO 01/26/2025 11:36 AM [facility] [place]
--- NOTE | 2025-01-26 08:29 | PC.NURSE ---
pt c/o itching in scalp, skin noted to be reddened by RN, skin over back is also reddened. vancomycin infusion stopped. Dr Banegas notified. noman added to pts allergy list.
--- NOTE | 2025-01-26 10:05 | MHC.SHP ---
Pre-Procedural Eval Section A - 24 Hr Update-Section A only Date of Service: 01/26/25 The patient is an INPATIENT: No Changes since office visit: Yes Patient answered all questions; No Cold of Flu in the past 2 weeks, No New Medical Problems and No Changes in Medication The patient has been examined within 24 hours of the surgical procedure. The History & Physical has been completed within 30 days and I have reviewed it.: Yes Section B - Complete if H&P > 30 days Chief Complaint: Malignant neoplasm of unspecified site of right Allergies: Allergies Allergy/AdvReac Type Severity Reaction Status Date / Time influenza virus vaccine, Allergy Intermediate PT Verified 01/26/25 07:33 specific (FLU VACCINE) DEVELOPED SOB AND LOCAL SWELLING THIS YR Penicillins (PENICILLINS) Allergy Intermediate HIVES Verified 01/26/25 07:33 prednisone Allergy Intermediate yeast Verified 01/26/25 07:33 infection vancomycin Allergy Redness of Verified 01/26/25 08:29 Skin metronidazole (From Flagyl) AdvReac Severe severe Verified 01/26/25 07:33 diarrhea oxycodone AdvReac Intermediate Migraine Verified 01/26/25 07:33 Plan Diagnosis/Plan: Unchanged I have reviewed the history and physical and performed a pertinent physical examination on my patient. No changes have occurred unless specified. Time Spent With Patient Time: Total time managing care of this patient today ____ minutes.
--- NOTE | 2025-01-26 11:57 | W.PM.OPN ---
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 Mass measures approximately 2.5 cm by mammogram. Patient has refused evaluation by both Radiation and Medical Oncology in his refusing to receive any chemotherapy or radiation therapy. Patient presents today for right breast lumpectomy with localizer and right axillary sentinel node biopsy, right axillary node dissection. Operative findings: Localizing clip and marking clip found in the specimen x-ray. Gross pathology revealed mass extends close to the posterior inferior and lateral margin therefore additional margin was obtained as a separate specimen. The previously marked axillary lymph node underwent specimen x-ray which confirmed marking clip and localizer clip within the specimen. Two additional sentinel nodes were identified within the specimen. An axillary node dissection was performed. Specimen: 1. Right breast lumpectomy with localizer 2. Eccles node 1. Which contains the localizing clip as well confirmed on x-ray 3. Eccles node 2. 4. Eccles node 3. 5. Additional margin of the posterior inferior and lateral margin Estimated blood loss: 10 mL Complications: None Drains: None Procedure details: Patient was brought to the OR and placed in a supine position. After administering general anesthesia, the patient's right breast and axilla were prepped with ChloraPrep and draped in a sterile fashion. A surgical time-out was called the consent confirmed. Patient received preoperative antibiotics and Venodyne boots were in place. Localizer device was used to identify site of the 2 marking clips 1 in the right breast upper outer quadrant in the 2nd in the right axilla. Local anesthesia consisting of 0.5% Sensorcaine with epinephrine was infiltrated circumferentially around the right upper quadrant breast mass which was palpable. An elliptical incision was then made with a scalpel oriented transversely in the right upper outer quadrant directly over the palpable mass. Superior and inferior skin flaps were then created using electrocautery. A core of tissue around the palpable mass was then performed again using the localizer to confirm proper biopsy site. Following dissection of the superior margin, excision was continued using the electrocautery to create the superior margin, medial margin, inferior margin, posterior margin and finally lateral margin. Specimen was then marked with a long suture in the lateral margin, short suture on the superior margin, and looped suture in the posterior margin. Specimen x-ray confirmed the marking clip and localizer clip within the specimen. This was sent to pathology for further examination. Attention was then directed to the axilla which was easily access through this upper outer quadrant incision a palpable node was noted adjacent to the excision cavity. This was confirmed to contain the localizer clip and was a sentinel node. This node was excised using electrocautery with hemostasis assured using free ties of 3-0 Polysorb suture. Specimen was x-rayed and confirmed the localizer clip and the marking clip within the node. This was sent as sentinel node 1. An axillary node dissection was then performed beginning along the lateral margin of the pectoralis major muscle and continued down to the pectoralis minor muscle. Dissection was continued from medial to lateral removing level 1 and level 2 lymph nodes. During the dissection the long thoracic nerve was identified as well as the thoracodorsal nerve. In addition the intercostal brachial nerve was identified and preserved. A rim of lymphatic tissue was left adjacent to the axillary vein to reduce the chances of lymphedema. Once the nerves were identified the remaining specimen was removed. Eccles nodes were identified within the specimen and sent as separate specimens. Wounds were then checked for hemostasis. Pathology recommended additional margins in the inferior posterior lateral margin. An additional margin was obtained using electrocautery in this location. This was sent as a separate specimen and marked with a long suture in the lateral margin, short suture on the superior margin, and looped suture in the posterior margin. Biopsy cavity was then marked using a hemoclip. Wounds were irrigated with saline solution and suctioned dry. Wounds were again checked for hemostasis. Clavipectoral fascia was reapproximated using interrupted 3-0 Polysorb sutures. Deep breast tissue was reapproximated using interrupted 3-0 Polysorb sutures. Dermis was reapproximated using interrupted 3-0 Polysorb sutures. Skin was then closed using a running subcuticular 4-0 Polysorb suture. Steri-Strips, 4 x 4 gauze and Tegaderm were then applied. The patient tolerated the procedure well. Sponge, instrument, and needle counts reported as correct. The patient was transferred to PACU in stable condition. Please note: This procedure was performed with curative intent Breast Eccles Node Biopsy Substrate(s) used for sentinel node biopsy in the non-neoadjuvant setting: Radiotracer Substrate(s) used for sentinel node biopsy in the neoadjuvant setting: N/A All colored nodes or non-colored nodes present at the end of a dye filled lymphatic channel were removed, if dye was used as the substrate for localization: N/A All significantly radioactive nodes were removed, if radionuclide was used as the substrate for localization: Yes All palpably suspicious nodes were removed, if present: Yes If clips were placed in pathology-involved nodes, those nodes were identified and removed: Yes Procedure performed with curative intent?: Yes Breast Axillary Dissection Resection was performed within the boundaries of the axillary vein, chest wall (serratus anterior), and latissimus dorsi: Yes The long thoracic and thoracodorsal nerves were spared during dissection: Yes Attempts were made to spare the intercostobrachial nerves during dissection if possible: Yes Procedure performed with curative intent?: Yes General Surg. - Synoptic Notes Breast Eccles Node Biopsy Substrate(s) used for sentinel node biopsy in the non-neoadjuvant setting: Radiotracer Substrate(s) used for sentinel node biopsy in the neoadjuvant setting: N/A All colored nodes or non-colored nodes present at the end of a dye filled lymphatic channel were removed, if dye was used as the substrate for localization: N/A All significantly radioactive nodes were removed, if radionuclide was used as the substrate for localization: Yes All palpably suspicious nodes were removed, if present: Yes If clips were placed in pathology-involved nodes, those nodes were identified and removed: Yes Procedure performed with curative intent?: Yes Breast Axillary Dissection Resection was performed within the boundaries of the axillary vein, chest wall (serratus anterior), and latissimus dorsi: Yes The long thoracic and thoracodorsal nerves were spared during dissection: Yes Attempts were made to spare the intercostobrachial nerves during dissection if possible: Yes Procedure performed with curative intent?: Yes
== END 2025-01-26 14:28 | disposition home or self-care (01) ==
PROVIDERS: PCP Internal Medicine; Visit Provider Surgery
PROC: (CPT 19301; principal; 2025-01-26 11:00)
PROC: (CPT 19301; 2025-01-26 11:00)
DX: C50.411 Malignant neoplasm of upper-outer quadrant of right female breast (principal); C77.3 Secondary and unspecified malignant neoplasm of axilla and upper limb lymph nodes; Z17.0 Estrogen receptor positive status [ER+]; Z17.21 Progesterone receptor positive status; Z17.32 Human epidermal growth factor receptor 2 negative status; Z91.199 Patient's noncompliance with other medical treatment and regimen due to unspecified reason; M81.0 Age-related osteoporosis without current pathological fracture; R03.0 Elevated blood-pressure reading, without diagnosis of hypertension; E55.9 Vitamin D deficiency, unspecified; Z86.0101 Personal history of adenomatous and serrated colon polyps; Z87.442 Personal history of urinary calculi; Z88.0 Allergy status to penicillin; Z88.5 Allergy status to narcotic agent; Z88.8 Allergy status to other drugs, medicaments and biological substances; Z88.7 Allergy status to serum and vaccine; Z79.899 Other long term (current) drug therapy; Z87.891 Personal history of nicotine dependence; Z98.1 Arthrodesis status; Z98.890 Other specified postprocedural states
CPT/HCPCS: 19301; 38525; 38900; 78195; 88307; 88342; A9520; C1889; J0131; J1100; J1790; J2003; J2250; J2371; J2405; J2704; J2765; J3010; J3374

== ENCOUNTER → 2025-01-26 06:39 | Outpatient (BNV) | payer MEDICARE, SELFPAY | PROVIDERS: PCP Internal Medicine; Visit Provider Surgery | DX: C50.411 Malignant neoplasm of upper-outer quadrant of right female breast (principal); R59.0 Localized enlarged lymph nodes | CPT/HCPCS: 19302 ==

== ENCOUNTER → 2025-01-26 07:44 | Outpatient (BNV) | payer MEDICARE, SELFPAY | PROVIDERS: PCP Internal Medicine; Visit Provider Radiology Diagnostic Radiology | DX: R59.0 Localized enlarged lymph nodes (principal) | CPT/HCPCS: 78195 ==

== ENCOUNTER 2025-01-29 11:32 | Emergency (ER) | payer MEDICARE, SELFPAY ==
--- NOTE | ~2025-01-29 | CT_ITS ---
CLINICAL HISTORY: constipation, abd pain CT abdomen and pelvis with contrast Comparison: None provided Findings: No consolidation or effusion. Right lateral breast mass/hematoma measuring 5.9 x 3.3 cm with air-fluid level, likely related to recent biopsy procedure, correlate clinically. Gallbladder is within normal limits. Bilateral renal cyst largest stone within the left kidney midpole measures 5.1 cm. Remainder of the solid organs within normal limits. No renal stones. No bowel obstruction, pneumoperitoneum, or pneumatosis. Moderate sigmoid diverticulosis without evidence of acute diverticulitis. Pelvic contents unremarkable. Normal appendix. The bones are intact. IMPRESSION: No acute findings. No significant stool burden. Right lateral breast mass/hematoma measuring 5.9 x 3.3 cm with air-fluid level, likely related to recent biopsy procedure, correlate clinically. Moderate sigmoid diverticulosis without evidence of acute diverticulitis. No significant stool burden. This document has been electronically signed by: Rajesh Redmond MD on 01/29/2025 17:44:27
--- NOTE | 2025-01-29 11:34 | ED_ITS ---
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 Patient reports that she has been experiencing constipation due to pain meds since her surgery due to pain meds. Was attempting to have a bowel movement this morning. States that her bowel movement was soft but that she was sitting on the toilet for quite some time. She became lightheaded and severely nauseated and called her son who then came over. She states that when she stood up she again felt very lightheaded and near syncopal but denies full syncope or fall. Last BM prior to surgery was on Friday. Reports lower abdominal discomfort. [place] very nauseated but did not vomit. MD complaint: lightheaded Onset (ago): hour(s) Related Data Home Medications ?Medication ?Instructions ?Recorded ?Confirmed cholecalciferol (vitamin D3) 50 50 mcg PO DAILY 01/26/25 mcg (2,000 unit) capsule ascorbate calcium (vitamin C) 500 500 mg PO DAILY 04/2501/26/25 mg tablet Previous Rx's ?Medication ?Instructions ?Recorded atorvastatin 10 mg tablet 10 mg PO DAILY #90 tabs 06/18 triamcinolone acetonide 0.1 % 1 appl topical BID 10 da ys #15 04/27/24 topical cream grams docusate sodium 100 mg capsule 200 mg (2 x 100 mg) PO BEDTIME 05/19/24 #180 caps magnesium oxide 400 mg PO DAILY #90 tabs linaclotide 290 mcg capsule 290 mcg PO QAM #30 caps (Linzess) ciprofloxacin 0.3 %-dexamethasone 4 drp otic (ears) BI D 7 days #7.5 01/13/25 0.1 % ear drops,suspension mL doxycycline hyclate 100 mg capsule 100 mg PO BID 5 day s #10 caps 01/13/25 hydrocodone 5 mg-acetaminophen 325 1 tab PO Q6H PRN pa in (scale score 01/26/25 mg tablet 7-10) #20 tabs Allergies Allergy/AdvReac Type Severity Reaction Status Date / Time influenza virus vaccine, Allergy Intermediate PT Verified 01/29/25 11:43 specific (FLU VACCINE) DEVELOPED SOB AND LOCAL SWELLING THIS YR Penicillins (PENICILLINS) Allergy Intermediate HIVES Verified 01/29/25 11:43 prednisone Allergy Intermediate yeast Verified 01/29/25 11:43 infection vancomycin Allergy Redness of Verified 01/29/25 11:43 Skin metronidazole (From Flagyl) AdvReac Severe severe Verified 01/29/25 11:43 diarrhea oxycodone AdvReac Intermediate Migraine Verified 01/29/25 11:43 Review of Systems 2 Review of Systems: As per HPI Yes all other systems are reviewed and are negative Constitutional: Constitutional: Reports as per HPI PMFSH Past Medical History Medical History Otitis externa of left ear Large mass of breast History of adenomatous polyp of colon 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 Elevated blood pressure reading Tobacco use disorder, mild, abuse Mammogram declined Immunization declined Tubular adenoma Smoker History of nephrolithiasis Lumbar disc herniation Hearing loss Osteopenia of multiple sites Vitamin D deficiency Surgical History History of fusion of cervical spine History of lumbar discectomy History of cataract extraction Hx of colonoscopy Family History Family History Father Cancer Mother Diabetes mellitus Sister Brain cancer Social History Social History Housing: House Alcohol intake: former Patient Tobacco Use Status: Former Tobacco user Tobacco use type: Cigarette Cigarettes Per Day: 3 Years Smoked: 50 Smoked in Last 30 Days: No e-Cigarette/Vaping Use: Never Used Use of substances other than those prescribed or required for medical reasons: No Advance Directives: Yes Advance Directives Information Provided: No Advance Directives on File: No Do you have a plan to hurt others: No Plan service: No Current occupational status: retired Cognitive needs: No Hearing needs: Yes Vision needs: Yes Physical Exam ED Vital Signs: Vital Signs - 24 hr 01/29/25 11:40 01/29/25 12:48 01/29/25 14:42 Temperature 97.8 F 97.6 F 98.0 F Pulse Rate 73 90 83 Respiratory Rate 16 18 16 Blood Pressure 145/69 H 139/71 149/69 H Pulse Oximetry 96 98 94 Oxygen Delivery Method Room Air Room Air Room Air 01/29/25 16:32 Temperature 98.2 F Pulse Rate 82 Respiratory Rate 16 Blood Pressure 157/72 H Pulse Oximetry 95 Oxygen Delivery Method Room Air BMI result Body Mass Index 26.1 Vital signs have been reviewed and appear to be correct. Blood pressure normal. Heart rate normal. Respiratory rate normal. Temperature normal. Oxygen saturation normal. Const General: cooperative and no acute distress Orientation/consciousness: oriented to person, oriented to place, oriented to time and patient oriented x3 Limitations: no limitations HENMT Head: Yes normocephalic and Yes atraumatic Ears: external ears normal General nose exam: Normal external nose present Face and sinus: Yes face symmetric Mouth: oropharynx normal and moist mucous membranes Throat: Yes uvula midline Eyes Pupils: Equal, round and reactive pupils present Neck Neck: Yes normal visual inspection and Yes supple Chest Other: right breast incision is clean, dry and intact, surrounding healing ecchymosis, no discharge/drainage, warmth Resp Effort & Inspection: normal respiratory effort and able to speak in complete sentences Auscultation: clear to auscultation bilaterally Cardio Rate: regular rate Rhythm: regular rhythm Heart sounds: S1 normal heart sound present and S2 normal heart sound present GI Palpation (GI): Soft to palpation and nontender Auscultation: normoactive bowel sounds General: Yes no CVA tenderness Back/Spine/Pelvis Back: no CVA tenderness Skin General skin exam: elasticity normal and turgor normal Neuro General: oriented to person, oriented to place, oriented to time, patient oriented x3, moves all extremities, no focal motor deficits and CN's II-XI intact bilaterally Cranial nerves: Yes Equal, round and reactive pupils present Cognition (Neuro): normal cognition Extrem General: Yes full ROM, Yes no pedal edema and Yes no calf tenderness Psych Mental Status: mental status grossly normal Affect: normal affect Thought process: Normal thought process present Medical Decision Making Medical Decision Making MDM Narrative: Patient is a 79-year-old female with 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 On exam patient is awake, A+Ox3, VS WNL, afebrile, normal neurological exam without focal deficits, physical exam findings as above. Given reported symptoms and physical exam findings, initial differential includes but is not limited to cardiac arrhythmia, dehydration, anemia, electrolyte abnormality, viral illness. Labs within normal limits. EKG shows normal sinus rhythm. CT abdomen pelvis is without evidence of acute abdominal abnormalities, no significant stool burden. Right lateral breast hematoma likely related to recent procedure. My interpretation is in agreement with the radiologist's interpretation. Results discussed with patient and son and all questions answered. Advised patient to drink plenty of fluids, eat plenty of fruits and vegetables. Follow up with surgeon and PCP as needed. Return precautions discussed. Patient verbalized understanding of and agreement with plan. Differential Diagnosis Differential Diagnoses: The differential diagnosis associated with the presentation includes as per [facility] Admission/Observation Consideration of admission/observation: Escalation of care including admission/observation considered Patient would have been admitted to the hospital and transferred to appropriate facility had their clinical presentation warranted hospital admission. Lab Data [facility] Lab Attestation statement: I reviewed the patient's lab results. as per [facility] 01/29/25 11:51 01/29/25 11:51 Labs: Lab Results 01/29/25 01/29/25 Range/Units 11:51 12:51 WBC 7.5 (4.8-10.8) X10*3/uL RBC 4.17 L (4.20-5.50) X10*6/uL Hgb 13.0 (12.0-16.0) g/dl Hct 38.2 (37.0-47.0) % MCV 91.6 (80.0-98.0) fL MCH 31.2 (27.0-33.0) pg MCHC 34.0 (31.0-35.0) g/dl RDW 13.0 (11.0-16.0) % Plt Count 224 (160-400) X10*3/uL MPV 9.9 (9.4-12.3) fL Immature Gran % (Auto) 0.3 (0.0-0.4) % Neut % (Auto) 70.2 (45-73) % Lymph % (Auto) 17.9 L (20-40) % [place] % (Auto) 8.4 (2-11) % Eos % (Auto) 2.4 (0-4) % Baso % (Auto) 0.8 (0-2) % Lymph # (Auto) 1.4 (1.2-4.9) X10*3/uL [place] # (Auto) 0.6 (0.1-1.2) X10*3/uL Eos # (Auto) 0.2 (0.0-0.4) X10*3/uL Baso # (Auto) 0.1 (0.0-0.2) X10*3/uL Abs Immat Gran (auto) 0.02 (0.00-0.03) X10*3/uL Absolute Neuts (auto) 5.3 (2.0-8.3) x10*3/uL Absolute Nucleated RBC 0.000 (0.0-0.012) X10*3/uL Nucleated RBC % (auto) 0.0 (0.0-0.2) /100WBC PT 11.7 (11.2-13.5) SEC INR 1.0 (0.9-1.1) Sodium 140 (135-145) mmol/L Potassium 4.0 (3.3-5.1) mmol/L Chloride 106 (96-108) mmol/L Carbon Dioxide 27 (22-29) mmol/L Anion Gap 11 L (12-20) BUN 16 (9-16) mg/dL Creatinine 0.57 (0.5-1.4) mg/dL Estim Creat Clear Calc 67.9 Estimated GFR > 60 Random Glucose 142 H (60-115) mg/dL Calcium 9.0 (8.4-10.2) mg/dL Magnesium 2.0 (1.6-2.6) mg/dL Total Bilirubin 0.9 (0.0-1.0) mg/dL AST 24 (5-31) U/L ALT 13 (0-31) U/L Alkaline Phosphatase 63 (39-117) U/L Troponin I High Sens < 2.7 (<3.5-17.0) ng/L Total Protein 6.6 (6.5-8.0) g/dL Albumin 3.8 (3.5-5.0) g/dL Urine Color Dark Yellow Urine Appearance Cloudy Urine pH 5.5 (5.0-9.0) Ur Specific [place] 1.025 (1.005-1.025) Urine Protein Trace (Neg-Trace) mg/dL Urine Glucose (UA) Negative (Negative) mg/dL Urine Ketones Trace (Negative) mg/dL Urine Blood Small (1+) H (Negative) Urine Nitrite Negative (Negative) Ur Leukocyte Esterase Small (1+) H (Negative) Urine RBC 11-20 H (0-2) /HPF Urine WBC 21-50 H (0-5) /HPF Ur Squamous Epith Cells 3-5 (0-2) /HPF Calcium Oxalate Crystal Present Urine Bacteria None Seen (None Seen) Hyaline Casts 0-2 (0-2) /LPF Influenza Type A (PCR) NEGATIVE (Negative) Influenza Type B (PCR) NEGATIVE (Negative) RSV RNA Qual (PCR) NEGATIVE (Negative) SARS-CoV-2 RNA (RT-PCR) NEGATIVE (Negative) Independent Interpretation I performed an independent interpretation of an: EKG ( Normal sinus rhythm, rate 77 beats per minute, normal UT interval and QTC) and CT Scan Interpretation: CT abdomen pelvis is without evidence of acute abdominal abnormalities, no significant stool burden. Right lateral breast hematoma likely related to recent procedure. Radiology Impression Discussion of test interpretation with radiology: I have reviewed the radiologist's reading. Radiologist Impression: CT abdomen and pelvis with contrast Comparison: None provided Findings: No consolidation or effusion. Right lateral breast mass/hematoma measuring 5.9 x 3.3 cm with air-fluid level, likely related to recent biopsy procedure, correlate clinically. Gallbladder is within normal limits. Bilateral renal cyst largest stone within the left kidney midpole measures 5.1 cm. Remainder of the solid organs within normal limits. No renal stones. No bowel obstruction, pneumoperitoneum, or pneumatosis. Moderate sigmoid diverticulosis without evidence of acute diverticulitis. Pelvic contents unremarkable. Normal appendix. The bones are intact. IMPRESSION: No acute findings. No significant stool burden. Right lateral breast mass/hematoma measuring 5.9 x 3.3 cm with air-fluid level, likely related to recent biopsy procedure, correlate clinically. Moderate sigmoid diverticulosis without evidence of acute diverticulitis. No significant stool burden. External Record Review External record reviewed: Inpatient record, Office record and Outpatient record Discharge Plan Discharge Clinical Impression: Near syncope, Abdominal pain Patient Disposition: Home, Self-Care Instructions: Syncope (DC), Abdominal Pain (ED), Constipation (DC) Additional Instructions: You were evaluated in the emergency department today after an episode of nearly passing out at home. Your EKG, labs, and CT scan were reassuring. We recommend that you try to ensure plenty of high-fiber foods such as fruits and vegetables, drink plenty of fluids. Follow up with your primary care provider and surgeon as needed. Return to the emergency department if you have additional episodes of nearly passing out or passing out, worsening abdominal pain, blood in your vomit or stool, or any other new or concerning symptoms. Prescriptions: No Action Linzess 290 mcg capsule 290 mcg PO QAM Qty: 30 4RF ciprofloxacin-dexamethasone 0.3-0.1 % drops,suspension 4 drp otic (ears) BID 7 Days Qty: 7.5 0RF hydrocodone-acetaminophen 5-325 mg tablet 1 tab PO Q6H PRN (Reason: pain (scale score 7-10)) Qty: 20 0RF Rx Instructions: Partial Fill upon patient request. cholecalciferol (vitamin D3) 50 mcg (2,000 unit) capsule 50 mcg PO DAILY triamcinolone acetonide 0.1 % cream 1 appl topical BID 10 Days Qty: 15 0RF Rx Instructions: Apply sparingly to affected area on left knee twice a day for no more than 10 days atorvastatin 10 mg tablet 10 mg PO DAILY Qty: 90 3RF ascorbate calcium (vitamin C) 500 mg tablet 500 mg PO DAILY docusate sodium 100 mg capsule 200 mg PO BEDTIME Qty: 180 3RF magnesium oxide 400 mg magnesium tablet 400 mg PO DAILY Qty: 90 2RF doxycycline hyclate 100 mg capsule 100 mg PO BID 5 Days Qty: 10 0RF Print Language: Camb[place]ian
--- NOTE | 2025-01-29 11:35 | ECG_ITS ---
Test Reason : DIZZINESS Blood Pressure : */* mmHG Vent. Rate : 77 BPM Atrial Rate : 77 BPM P-R Int : 156 ms QRS Dur : 80 ms QT Int : 396 ms P-R-T Axes : 56 53 70 degrees QTcB Int : 448 ms Normal sinus rhythm Normal ECG When compared with ECG of 03-Sep-2020 14:35, Nonspecific T wave abnormality now evident in Anterior leads Referred By: Catarina Macias Electronically Signed By: DEJON MARTIN
[2025-01-29 11:36] VITALS: BP 126/80; PULSE 76; O2SAT 96
[2025-01-29 11:40] VITALS: BP 145/69; PULSE 73; RESP 16; TEMP 36.6; O2SAT 96; BMI 26.1
[2025-01-29 11:55] LABS: MANUAL DIFF FLAG NO
[2025-01-29 11:56] LABS: Hematocrit 38.2 % (37.0-47.0); Hemoglobin 13.0 g/dl (12.0-16.0); Imm Gran Abs Auto 0.02 X10*3/uL (0.00-0.03); Imm Gran Pct Auto 0.3 % (0.0-0.4); Lymphocytes Absolute Auto 1.4 X10*3/uL (1.2-4.9); Mean Corpuscular HGB Conc 34.0 g/dl (31.0-35.0); Mean Corpuscular Hemoglobin 31.2 pg (27.0-33.0); Mean Corpuscular Volume 91.6 fL (80.0-98.0); NRBC Abs Auto 0.000 X10*3/uL (0.0-0.012); NRBC Pct Auto 0.0 /100WBC (0.0-0.2); Platelet Count 224 X10*3/uL (160-400); Red Blood Count 4.17 X10*6/uL (4.20-5.50); White Blood Count 7.5 X10*3/uL (4.8-10.8)
[2025-01-29 12:03] LABS: INTERNATIONAL NORM RATIO 1.0 (0.9-1.1); Prothrombin Time 11.7 SEC (11.2-13.5)
[2025-01-29 12:22] LABS: Alanine Aminotransferase 13 U/L (0-31); Albumin Level 3.8 g/dL (3.5-5.0); Alkaline Phosphatase 63 U/L (39-117); Anion Gap 11 (12-20); Aspartate Amino Transferase 24 U/L (5-31); Blood Urea Nitrogen 16 mg/dL (9-16); Calcium 9.0 mg/dL (8.4-10.2); Carbon Dioxide 27 mmol/L (22-29); Chloride 106 mmol/L (96-108); Creatinine Clr Calc Pharmacy 67.9; Estimated Glomerular Filt Rate > 60; Magnesium 2.0 mg/dL (1.6-2.6); Potassium 4.0 mmol/L (3.3-5.1); Sodium 140 mmol/L (135-145); Total Protein 6.6 g/dL (6.5-8.0)
[2025-01-29 12:31] LABS: Resp Syncy Virus RNA Qual PCR NEGATIVE (Negative); SARS COV2 PCR INHOUSE NEGATIVE (Negative); Troponin-I High Sensitivity < 2.7 ng/L (<3.5-17.0)
[2025-01-29 12:48] VITALS: BP 139/71; PULSE 90; RESP 18; TEMP 36.4; O2SAT 98
[2025-01-29 13:00] LABS: Appearance Urine Cloudy; Glucose Urine UA Negative (Negative); PH 5.5 (5.0-9.0); Specific Gravity - Urine 1.025 (1.005-1.025); UMIC TRIGGER UACC YES
[2025-01-29 13:09] LABS: UACC Culture Trigger YES
--- NOTE | 2025-01-29 13:11 | PC.NURSE ---
pt observed ambulating to restroom with walker with no issue
[2025-01-29 14:42] VITALS: BP 149/69; PULSE 83; RESP 16; TEMP 36.7; O2SAT 94
[2025-01-29 16:32] VITALS: BP 157/72; PULSE 82; RESP 16; TEMP 36.8; O2SAT 95
--- NOTE | 2025-01-29 16:54 | PC.NURSE ---
pt ambulatory using walker with steady gait to and from bathroom. denies any dizziness or lightheadedness upon standing.
[2025-01-29 18:04] VITALS: BP 157/72; PULSE 82; RESP 16; TEMP 36.8; O2SAT 95
== END 2025-01-29 18:05 | disposition home or self-care (01) ==
PROVIDERS: Registered Nurse Emergency; Emergency Provider Emergency Medicine; PCP Internal Medicine
DX: R55 Syncope and collapse (principal); R10.9 Unspecified abdominal pain; R11.2 Nausea with vomiting, unspecified; R19.7 Diarrhea, unspecified; R42 Dizziness and giddiness; K59.00 Constipation, unspecified; Z03.818 Encounter for observation for suspected exposure to other biological agents ruled out; Z87.891 Personal history of nicotine dependence
CPT/HCPCS: 74177; 80053; 81001; 81003; 83735; 84484; 85025; 85610; 87086; 87637; 93005; 99284; 99285

== ENCOUNTER → 2025-01-29 11:35 | Outpatient (BNV) | payer MEDICARE, SELFPAY | PROVIDERS: Emergency Provider Emergency Medicine; PCP Internal Medicine; Visit Provider Internal Medicine | DX: R42 Dizziness and giddiness (principal) | CPT/HCPCS: 93010 ==

== ENCOUNTER → 2025-01-29 11:46 | Outpatient (BNV) | payer MEDICARE, SELFPAY | PROVIDERS: Emergency Provider Emergency Medicine; PCP Internal Medicine; Visit Provider Student in an Organized Health Care Education/Training Program | DX: K59.00 Constipation, unspecified (principal); K57.30 Diverticulosis of large intestine without perforation or abscess without bleeding | CPT/HCPCS: 74177 ==

== ENCOUNTER 2025-02-04 11:36 | Outpatient (AMB) | payer MEDICARE, SELFPAY ==
--- NOTE | 2025-02-04 11:34 | MHC.OFFVIS ---
Vital Signs 02/04/25 11:52 Height 5 ft 1 in Weight 138 lb 6 oz BMI 26.1 BP 170/77 H Blood Pressure Location Lt brachial Position Sitting Pulse 84 Intake Visit Reasons: s/p Rt br lumpectomy w/loc and SN Intake Note: Patient is seen in office for post op assessment post Right breast lumpectomy with localizer, right axillary sentinel node biopsy, right axillary node dissection. Pt c/o: per pt was in the ED on Friday due to constipation, dizzines, lightheaded, thinks might be due to the Vicodin, is requesting to change to Tramadol if possible due to increase pain Inspector Plumbing Required: No Accompanied by: Self / Same As Patient Allergies influenza virus vaccine, specific (FLU VACCINE) Allergy (Intermediate, Verified 02/04/25 11:50) PT DEVELOPED SOB AND LOCAL SWELLING THIS YR Penicillins (PENICILLINS) Allergy (Intermediate, Verified 02/04/25 11:50) HIVES prednisone Allergy (Intermediate, Verified 02/04/25 11:50) yeast infection vancomycin Allergy (Verified 02/04/25 11:50) Redness of Skin metronidazole (From Flagyl) Adverse Reaction (Severe, Verified 02/04/25 11:50) severe diarrhea oxycodone Adverse Reaction (Intermediate, Verified 02/04/25 11:50) Migraine HPI Comments Details: Marah returns today following right breast lumpectomy with localizer and right axillary node dissection for cT2 N1 disease performed on 01/26/2025. She reports soreness in the arm especially along the medial surface. She became constipated from the pain medication and has held off on further narcotic. She previously had indicated that she had no interested in either seeing the medical or radiation oncologist but today she presents with her son in his indicating that she is willing to talk to the medical oncologist to discuss her options. As previously noted, she has a 79-year-old female patient presenting with a palpable mass noted on self-examination several months ago. The lump is located in the right breast in the upper outer quadrant and does cause discomfort when clothing puts pressure on the lump. She denies a previous history of breast problems or breast surgery. Her family history is negative for breast cancer or ovarian cancer. Her menarche was at age 14. She is 2 para 2 and her last period was at the age of 42. She denies hormone replacement therapy. Workup with mammogram and ultrasound performed on 12/13/2024 revealed a solid irregular mass in the upper outer quadrant on ultrasound at the 10 o'clock position 11 cm from the nipple. In a regular enlarged low axillary lymph node at the 10 o'clock position 15 cm from the nipple was also identified. These were felt to be suspicious for malignancy (BI-RADS 4) an ultrasound-guided biopsy of both lesions recommended. She underwent a ultrasound-guided core biopsy of the right breast mass and axillary lymph node on 12/21/2024. Pathology revealed an invasive ductal carcinoma with lobular features, grade 2-3, ER/AZ positive, HER2 Jairo equivocal (FISH pending), Ki-67 high. The lymph node biopsy was positive for metastatic breast cancer. (cT1c N1). I recommended patient be evaluated by Medical Oncology for consideration of neoadjuvant chemotherapy. Patient reported her sister underwent chemo and radiation therapy and she absolutely refused to be evaluated by Medical or Radiation Oncology. 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 Elevated blood pressure reading Tobacco use disorder, mild, abuse Mammogram declined Immunization declined Tubular adenoma Smoker History of nephrolithiasis Lumbar disc herniation Hearing loss Osteopenia of multiple sites Vitamin D deficiency Surgical History History of lumpectomy of right breast (01/26/25) History of fusion of cervical spine History of lumbar discectomy History of cataract extraction Hx of colonoscopy Family History Father Cancer Mother Diabetes mellitus Sister Brain cancer Social History Housing: House Alcohol intake: former Patient Tobacco Use Status: Former Tobacco user Tobacco use type: Cigarette Cigarettes Per Day: 3 Years Smoked: 50 e-Cigarette/Vaping Use: Never Used service: No Current occupational status: retired Cognitive needs: No Hearing needs: Yes Vision needs: Yes Female Reproductive History Menstrual Age of Menarche: 14 Physical Exam Vital Signs: Last Vital Signs Pulse 84 02/04/25 11:52 BP 170/77 H 02/04/25 11:52 BMI result Body Mass Index 26.1 Const General: no acute distress Nutritional Appearance: well nourished Orientation/consciousness: patient oriented x3 Limitations: no limitations Chest Chest/axillae images:  1. Well-healed incision in the upper outer quadrant right breast with no palpable seroma or hematoma in either the breast or axilla. Resp Effort & Inspection: normal respiratory effort, no audible wheezes, no cough and no respiratory distress GI Inspection: Yes normal to inspection Skin Other: Warm, dry, no rash Neuro General: patient oriented x3 Extrem Other: No right upper extremity edema Results Reviewed Results Reviewed: Pathology results (01/26/2025): Invasive ductal carcinoma with micropapillary features, grade 3, 3.0 cm, negative margins, benign skin, pT2 N1A (AJCC stage 8th ed.). [place] node biopsy with metastatic carcinoma in 1 of 4 lymph nodes. Axillary dissection with no metastatic carcinoma present in 15 lymph node. Ancillary studies: ER positive, AZ positive, HER2 Jairo negative (after FISH), high Ki-67. Assessment & Plan Assessment & Plan (1) Invasive ductal carcinoma of right breast, stage 2: Code(s): C50.911 - Malignant neoplasm of unspecified site of right female breast Category: Medical Plan 79-year-old female patient found to have a palpable breast mass in the right breast at the upper outer quadrant, determined to have a suspicious lesion on mammogram and ultrasound. She initially refused preoperative medical oncology evaluation a would only consent for surgery. She underwent right breast lumpectomy, right axillary sentinel node biopsy followed by right axillary node dissection. Pathology confirmed a 3 cm invasive ductal carcinoma with micro papillary features, negative margins of at least 1 cm, with metastatic carcinoma identified in 1 of 19 lymph nodes (1 previously biopsied lymph node removed as a sentinel node). I had a further discussion today with the patient and her son. I reviewed the pathology results in detail and discussed the possibility of both local and distant metastasis without additional treatment. She expressed understanding in his now willing to talk to the medical oncologist and radiation oncologist. She knows Dr. Ray and would like to be seen by her for consultation. I recommended she return in approximately 1 month for wound check. She is welcome to call sooner for any new concerns. Orders: Referrals Hematology & Oncology Referral C50.911 - Malignant neoplasm of unspecified site of right female breast Medications: New zolpidem (Ambien) 5 mg PO BEDTIME PRN 20 tabs 0RF sleep tramadol 50 mg PO Q8H PRN 20 tabs 0RF pain Coding Level of Care Code Global (15453) Diagnoses Invasive ductal carcinoma of right breast, stage 2 C50.911
[2025-02-04 11:52] VITALS: BP 170/77; PULSE 84; BMI 26.1
== END 2025-02-04 13:06 | disposition home or self-care (01) ==
LOC: HO.HGS 11:37
PROVIDERS: PCP Internal Medicine; Visit Provider Surgery
DX: C50.911 Malignant neoplasm of unspecified site of right female breast (principal)
CPT/HCPCS: 99024

== ENCOUNTER → 2025-02-04 11:36 | Outpatient (BNVA) | payer MEDICARE, SELFPAY | PROVIDERS: PCP Internal Medicine; Visit Provider Surgery | DX: Z71.2 Person consulting for explanation of examination or test findings (principal); C50.911 Malignant neoplasm of unspecified site of right female breast | CPT/HCPCS: 99212 ==

== ENCOUNTER → 2025-02-11 09:45 | Outpatient (BNV) | payer MEDICARE, SELFPAY | PROVIDERS: PCP Internal Medicine; Visit Provider Internal Medicine Medical Oncology | DX: C50.411 Malignant neoplasm of upper-outer quadrant of right female breast (principal); C77.3 Secondary and unspecified malignant neoplasm of axilla and upper limb lymph nodes | CPT/HCPCS: 99204 ==